=== PATIENT | female | born 1955 | race African-American/Black ===

== ENCOUNTER → 2016-12-20 | Outpatient (CLI) | payer OTHER ==
[~2016-12-20] MED LIST: ALPR1TAB2 PO; ASCO-96 PO; ASPI-770 PO; ATEN50TA41 PO; Amlodipine Besylate PO; CALC300T4 PO; CARI350T14 PO; CARV25TA12 PO; CINA30TA PO; CINA60TA PO; CLON0.1T12 PO; CLON0.2T10 PO; CLOP75TA22 PO; CYAN500T2 PO; CYANOCOBALAMIN; CYCL1DRO TP; DAPT500V6 IV; DULO60CA7 PO; ERGO500017 PO; HUM100IN SQ; HYDR-3307 PO; HYDR-3342 PO; HYDR1TAB16 PO; INSU100I11 SC; INSU100V13 SQ; INSU100V8 SQ; LEVA15HF2 INH; LEVO100T5 PO; LEVO88CA2 PO; LISI-170 PO; LOVA40TA2 PO; MECL-76 PO; METO5TAB38 PO; MEXI150C PO; OMEP40CA6 PO; ONDA4TAB13 SL; PRED20TA PO; ROSU10TA PO; TERA10CA3 PO; TERA5CAP3 PO; VERA240T86 PO; ZOLP10TA5 PO; [UNRECOGNIZED DRUG - CODE] PO
== END | disposition home or self-care (01) ==
LOC: WOUND 14:32
PROVIDERS: ATTEND Podiatrist Foot & Ankle Surgery
DX: E11.621 Type 2 diabetes mellitus with foot ulcer (principal); L97.421 Non-pressure chronic ulcer of left heel and midfoot limited to breakdown of skin; E11.21 Type 2 diabetes mellitus with diabetic nephropathy; F41.9 Anxiety disorder, unspecified; K21.9 Gastro-esophageal reflux disease without esophagitis; I13.2 Hypertensive heart and chronic kidney disease with heart failure and with stage 5 chronic kidney disease, or end stage renal disease; N18.6 End stage renal disease; I50.9 Heart failure, unspecified; E03.9 Hypothyroidism, unspecified; E78.2 Mixed hyperlipidemia; E11.41 Type 2 diabetes mellitus with diabetic mononeuropathy; Z99.2 Dependence on renal dialysis; Z79.4 Long term (current) use of insulin
CPT/HCPCS: 15275; Q4106

== ENCOUNTER → 2016-12-27 | Outpatient (CLI) | payer OTHER | END | disposition home or self-care (01) | LOC: WOUND 14:05 | PROVIDERS: ATTEND Podiatrist Foot & Ankle Surgery | DX: E11.621 Type 2 diabetes mellitus with foot ulcer (principal); L97.421 Non-pressure chronic ulcer of left heel and midfoot limited to breakdown of skin; E11.40 Type 2 diabetes mellitus with diabetic neuropathy, unspecified; I10 Essential (primary) hypertension; E78.5 Hyperlipidemia, unspecified; F41.9 Anxiety disorder, unspecified; K21.9 Gastro-esophageal reflux disease without esophagitis; E03.9 Hypothyroidism, unspecified; Z79.4 Long term (current) use of insulin | CPT/HCPCS: 97597 ==

== ENCOUNTER → 2017-01-03 | Outpatient (CLI) | payer OTHER | END | disposition home or self-care (01) | LOC: WOUND 14:26 | PROVIDERS: ATTEND Podiatrist Foot & Ankle Surgery | DX: E11.621 Type 2 diabetes mellitus with foot ulcer (principal); L97.421 Non-pressure chronic ulcer of left heel and midfoot limited to breakdown of skin; F41.9 Anxiety disorder, unspecified; I10 Essential (primary) hypertension; E78.5 Hyperlipidemia, unspecified; K21.9 Gastro-esophageal reflux disease without esophagitis; E03.9 Hypothyroidism, unspecified; E11.40 Type 2 diabetes mellitus with diabetic neuropathy, unspecified; Z79.4 Long term (current) use of insulin | CPT/HCPCS: 97597 ==

== ENCOUNTER → 2017-01-10 | Outpatient (CLI) | payer OTHER | END | disposition home or self-care (01) | LOC: WOUND 10:57 | PROVIDERS: ATTEND Podiatrist Foot & Ankle Surgery | DX: E11.621 Type 2 diabetes mellitus with foot ulcer (principal); L97.421 Non-pressure chronic ulcer of left heel and midfoot limited to breakdown of skin; I10 Essential (primary) hypertension; E11.40 Type 2 diabetes mellitus with diabetic neuropathy, unspecified; E78.5 Hyperlipidemia, unspecified; F41.9 Anxiety disorder, unspecified; K21.9 Gastro-esophageal reflux disease without esophagitis; E03.9 Hypothyroidism, unspecified; Z79.4 Long term (current) use of insulin | CPT/HCPCS: 15275; Q4106 ==

== ENCOUNTER → 2017-01-17 | Outpatient (CLI) | payer OTHER | END | disposition home or self-care (01) | LOC: WOUND 10:00 | PROVIDERS: ATTEND Podiatrist Foot & Ankle Surgery | DX: E11.621 Type 2 diabetes mellitus with foot ulcer (principal); L97.421 Non-pressure chronic ulcer of left heel and midfoot limited to breakdown of skin; I10 Essential (primary) hypertension; E78.5 Hyperlipidemia, unspecified; E11.40 Type 2 diabetes mellitus with diabetic neuropathy, unspecified; F41.9 Anxiety disorder, unspecified; K21.9 Gastro-esophageal reflux disease without esophagitis; E03.9 Hypothyroidism, unspecified; Z79.4 Long term (current) use of insulin | CPT/HCPCS: 15275; Q4106 ==

== ENCOUNTER → 2017-01-24 | Outpatient (CLI) | payer OTHER | END | disposition home or self-care (01) | LOC: WOUND 10:30 | PROVIDERS: ATTEND Podiatrist Foot & Ankle Surgery | DX: E11.621 Type 2 diabetes mellitus with foot ulcer (principal); L97.421 Non-pressure chronic ulcer of left heel and midfoot limited to breakdown of skin; E11.40 Type 2 diabetes mellitus with diabetic neuropathy, unspecified; I10 Essential (primary) hypertension; E78.5 Hyperlipidemia, unspecified; F41.9 Anxiety disorder, unspecified; K21.9 Gastro-esophageal reflux disease without esophagitis; E03.9 Hypothyroidism, unspecified; Z79.4 Long term (current) use of insulin | CPT/HCPCS: 97597 ==

== ENCOUNTER → 2017-01-31 | Outpatient (CLI) | payer OTHER | END | disposition home or self-care (01) | LOC: WOUND 10:30 | PROVIDERS: ATTEND Podiatrist Foot & Ankle Surgery | DX: E11.621 Type 2 diabetes mellitus with foot ulcer (principal); L97.421 Non-pressure chronic ulcer of left heel and midfoot limited to breakdown of skin; F41.9 Anxiety disorder, unspecified; K21.9 Gastro-esophageal reflux disease without esophagitis; E03.9 Hypothyroidism, unspecified; E11.22 Type 2 diabetes mellitus with diabetic chronic kidney disease; I13.2 Hypertensive heart and chronic kidney disease with heart failure and with stage 5 chronic kidney disease, or end stage renal disease; N18.6 End stage renal disease; I50.9 Heart failure, unspecified; E78.2 Mixed hyperlipidemia; E11.41 Type 2 diabetes mellitus with diabetic mononeuropathy; E11.21 Type 2 diabetes mellitus with diabetic nephropathy; Z99.2 Dependence on renal dialysis; Z79.4 Long term (current) use of insulin | CPT/HCPCS: 97597 ==

== ENCOUNTER 2017-02-03 17:18 | Emergency (ER) | payer OTHER ==
[~2017-02-03] VITALS: Ht 162.6 cm; Wt 87.0 kg
[2017-02-03] MEDS ORDERED: ASPIRIN 81 MG TABLET CHEW ONE (17:30)
[2017-02-03] MEDS ORDERED: DIAZEPAM 5 MG/ML, 2ML IVPush ONE (18:00)
[2017-02-03 18:09] LABS: ASPARTATE AMINO TRANSFERASE 11 U/L (15-37); BLOOD UREA NITROGEN 51 mg/dL (7-18)
[2017-02-03 20:30] VITALS: BP 181/92
== END 2017-02-03 21:18 | disposition home or self-care (01) ==
LOC: ED 20:07
DX: E11.649 Type 2 diabetes mellitus with hypoglycemia without coma (principal); Z79.4 Long term (current) use of insulin; I10 Essential (primary) hypertension
CPT/HCPCS: 36415; 70450; 80053; 82962; 85025; 93005

== ENCOUNTER → 2017-02-07 | Outpatient (CLI) | payer OTHER | END | disposition home or self-care (01) | LOC: WOUND 10:30 | PROVIDERS: ATTEND Podiatrist Foot & Ankle Surgery | DX: E11.621 Type 2 diabetes mellitus with foot ulcer (principal); L97.421 Non-pressure chronic ulcer of left heel and midfoot limited to breakdown of skin; E78.5 Hyperlipidemia, unspecified; Z79.4 Long term (current) use of insulin; E11.40 Type 2 diabetes mellitus with diabetic neuropathy, unspecified; F41.9 Anxiety disorder, unspecified; E11.21 Type 2 diabetes mellitus with diabetic nephropathy; E11.22 Type 2 diabetes mellitus with diabetic chronic kidney disease; I13.2 Hypertensive heart and chronic kidney disease with heart failure and with stage 5 chronic kidney disease, or end stage renal disease; I50.9 Heart failure, unspecified; N18.6 End stage renal disease; Z99.2 Dependence on renal dialysis; K21.9 Gastro-esophageal reflux disease without esophagitis; E03.9 Hypothyroidism, unspecified | CPT/HCPCS: 97597 ==

== ENCOUNTER → 2017-02-21 | Outpatient (CLI) | payer OTHER | END | disposition home or self-care (01) | LOC: WOUND 10:58 | PROVIDERS: ATTEND Podiatrist Foot & Ankle Surgery | DX: E11.621 Type 2 diabetes mellitus with foot ulcer (principal); L97.421 Non-pressure chronic ulcer of left heel and midfoot limited to breakdown of skin; E11.40 Type 2 diabetes mellitus with diabetic neuropathy, unspecified; E78.5 Hyperlipidemia, unspecified; Z79.4 Long term (current) use of insulin; F41.9 Anxiety disorder, unspecified; G47.00 Insomnia, unspecified; K21.9 Gastro-esophageal reflux disease without esophagitis; E03.9 Hypothyroidism, unspecified; E11.22 Type 2 diabetes mellitus with diabetic chronic kidney disease; I13.2 Hypertensive heart and chronic kidney disease with heart failure and with stage 5 chronic kidney disease, or end stage renal disease; I50.9 Heart failure, unspecified; N18.6 End stage renal disease; Z99.2 Dependence on renal dialysis | CPT/HCPCS: 97597 ==

== ENCOUNTER → 2017-02-28 | Outpatient (CLI) | payer OTHER | END | disposition home or self-care (01) | LOC: WOUND 11:03 | PROVIDERS: ATTEND Podiatrist Foot & Ankle Surgery | DX: E11.621 Type 2 diabetes mellitus with foot ulcer (principal); L97.421 Non-pressure chronic ulcer of left heel and midfoot limited to breakdown of skin; E11.40 Type 2 diabetes mellitus with diabetic neuropathy, unspecified; I10 Essential (primary) hypertension; E78.5 Hyperlipidemia, unspecified; F41.9 Anxiety disorder, unspecified; G47.00 Insomnia, unspecified; K21.9 Gastro-esophageal reflux disease without esophagitis; E03.9 Hypothyroidism, unspecified; E11.22 Type 2 diabetes mellitus with diabetic chronic kidney disease; I13.2 Hypertensive heart and chronic kidney disease with heart failure and with stage 5 chronic kidney disease, or end stage renal disease; I50.9 Heart failure, unspecified; N18.6 End stage renal disease; Z99.2 Dependence on renal dialysis; Z79.4 Long term (current) use of insulin | CPT/HCPCS: 97597; 99213 ==

== ENCOUNTER 2017-04-26 14:38 | Inpatient (IN) | payer OTHER ==
[~2017-04-26] VITALS: Ht 162.6 cm; Wt 91.3 kg
[~2017-04-26 14:38] MED LIST changes: -CINA30TA PO; +CINA30TA2 PO; -CLOP75TA22 PO; +CLOP75TA52 PO; -LEVA15HF2 INH; +LEVA15HF4 INH
[2017-04-26] MEDS ORDERED: HYDROcodone/APAP 5/325 TABLET PO ONE (17:30)
[2017-04-26 17:35] LABS: HEMATOCRIT 31.7 % (34.6-47.8); HEMOGLOBIN 10.4 g/dL (11.7-16.4); WHITE BLOOD COUNT 11.4 x10^3/uL (3.4-10)
[2017-04-26 17:42] LABS: BLOOD UREA NITROGEN 16 mg/dL (7-18)
[2017-04-26] MEDS ORDERED: HYDROcodone/APAP 5/325 TABLET ONE (17:51)
[2017-04-26] MEDS ORDERED: VANCOMYCIN 1,800 MG in SODIUM CHLORIDE 0.9% 250 ML IV ONE ×2 (19:30→22:00)
[2017-04-26] MEDS ORDERED: PHARMACOKINETIC CONSULTATION MC ONE ×2 (19:30→21:00)
[2017-04-26] MEDS ORDERED: VANCOMYCIN PER PHARMACY IV ONE (19:30)
[2017-04-26] MEDS ORDERED: CEFTRIAXONE PMX 2GM/50ML 50 ML ONE (19:43)
[2017-04-26] MEDS: CEFTRIAXONE PMX 2GM/50ML 50 ML IV ONE ×2 (19:46→20:34)
[2017-04-26] MEDS ORDERED: ALPRazolam 1MG TABLET PO PRN (20:30)
[2017-04-26] MEDS ORDERED: CARISOPRODOL 350 MG TABLET PO PRN (20:30)
[2017-04-26] MEDS ORDERED: INSULIN LISPRO 1 UNIT SC PRN (20:30)
[2017-04-26] MEDS ORDERED: VANCOMYCIN PER PHARMACY MC PRN (20:30)
[2017-04-26] MEDS ORDERED: ZOLPIDEM 10MG TABLET PO PRN (20:30)
[2017-04-26] MEDS ORDERED: POLYETHYLENE GLYCOL 17 GM PACKET PO PRN (21:00)
[2017-04-26] MEDS: TEMPLATE NON-FORMULARY MED. (Rosuvastatin Calcium** (Crestor**) 10 MG) HOMEMEDPO SCH (21:00)
[2017-04-26] MEDS: INSULIN ASPART 100 UNITS/ML, PEN SQ-INSULIN SCH (21:00)
[2017-04-26] MEDS ORDERED: HYDROmorphone 2 MG/ML, 1ML IVPush PRN (21:00)
[2017-04-26] MEDS: DULOXETINE 30 MG CAPSULE.DR PO SCH (21:00)
[2017-04-26] MEDS: TEMPLATE NON-FORMULARY MED. (Cyclosporine (Restasis) 1 DROP) TP SCH (21:00)
[2017-04-26] MEDS ORDERED: PHARMACOKINETIC MONITORING MC PRN (21:00)
[2017-04-26] MEDS ORDERED: PHARMACY MAY ADJ FOR RENAL FX MC PRN (21:00)
[2017-04-26] MEDS ORDERED: ATENOLOL 50 MG TABLET PO SCH (21:00)
[2017-04-26] MEDS: INSULIN DETEMIR 100 UNITS/ML, PEN SQ-INSULIN SCH (21:00)
[2017-04-26] MEDS ORDERED: INSULIN ASPART 100 UNITS/ML, 3ML PEN LOW DOSE SS SQ-INSULIN SCH (21:00)
[2017-04-26 21:08] VITALS: BP 142/60
[2017-04-26] MEDS: CALCIUM CARBONATE 500 MG TAB.CHEW PO SCH (22:32)
[2017-04-26] MEDS: MEXILETINE 150 MG CAPSULE PO SCH (22:34)
[2017-04-26] MEDS: TERAZOSIN 5MG CAPSULE PO SCH (22:34)
[2017-04-26] MEDS: ERGOCALCIFEROL 50,000 UNIT CAPSULE PO SCH ×2 (22:35→22:54)
[2017-04-26] MEDS: CLOPIDOGREL 75 MG TABLET PO SCH (22:35)
[2017-04-26] MEDS: HEPARIN 5,000 UNITS/ML, 1ML SQ SCH (22:39)
[2017-04-27 00:29] VITALS: BP 117/66
[2017-04-27] MEDS: HEPARIN 5,000 UNITS/ML, 1ML SQ SCH ×3 (05:14→23:16)
[2017-04-27 05:24] LABS: HEMATOCRIT 28.6 % (34.6-47.8); HEMOGLOBIN 9.4 g/dL (11.7-16.4); WHITE BLOOD COUNT 11.6 x10^3/uL (3.4-10)
[2017-04-27 05:32] LABS: BLOOD UREA NITROGEN 25 mg/dL (7-18)
[2017-04-27 05:59] VITALS: BP 113/66
[2017-04-27] MEDS: MEXILETINE 150 MG CAPSULE PO SCH ×2 (08:39→23:14)
[2017-04-27] MEDS: ASCORBIC ACID 500 MG TABLET PO SCH (08:40)
[2017-04-27] MEDS: DULOXETINE 30 MG CAPSULE.DR PO SCH ×2 (08:40→23:15)
[2017-04-27] MEDS: CINACALCET 30 MG TABLET PO SCH (08:40)
[2017-04-27] MEDS: CALCIUM CARBONATE 500 MG TAB.CHEW PO SCH ×3 (08:41→16:44)
[2017-04-27] MEDS: INSULIN ASPART 100 UNITS/ML, PEN SQ-INSULIN SCH ×4 (08:42→20:49)
[2017-04-27] MEDS: INSULIN DETEMIR 100 UNITS/ML, PEN SQ-INSULIN SCH ×2 (08:42→23:14)
[2017-04-27] MEDS: CYANOCOBALAMIN 1,000 MCG TABLET PO SCH (08:53)
[2017-04-27] MEDS: TEMPLATE NON-FORMULARY MED. (Cyclosporine (Restasis) 1 DROP) TP SCH ×2 (08:53→23:16)
[2017-04-27] MEDS: LEVOTHYROXINE 100 MCG TABLET PO SCH (08:53)
[2017-04-27] MEDS ORDERED: PHARMACY MAY ADJ FOR RENAL FX MC PRN (11:00)
[2017-04-27] MEDS: AMPICILLIN/SULBACTAM 3 GM in SODIUM CHLORIDE 0.9% 100 ML IV SCH ×3 (11:00→23:13)
[2017-04-27] MEDS: HYDROcodone/APAP 10/325 MG TABLET PO PRN ×2 (11:03→23:14)
[2017-04-27 14:29] VITALS: BP 111/70
[2017-04-27 18:33] VITALS: BP 100/58
[2017-04-27] MEDS ORDERED: CEFTRIAXONE PMX 2GM/50ML 50 ML IV SCH (20:00)
[2017-04-27 20:05] VITALS: BP 125/74
[2017-04-27] MEDS: TEMPLATE NON-FORMULARY MED. (Rosuvastatin Calcium** (Crestor**) 10 MG) HOMEMEDPO SCH (23:14)
[2017-04-27] MEDS: ATENOLOL 25 MG TABLET PO SCH (23:14)
[2017-04-27] MEDS: TERAZOSIN 5MG CAPSULE PO SCH (23:15)
[2017-04-27] MEDS: CLOPIDOGREL 75 MG TABLET PO SCH (23:15)
[2017-04-28 02:00] VITALS: BP 89/46
[2017-04-28] MEDS: AMPICILLIN/SULBACTAM 3 GM in SODIUM CHLORIDE 0.9% 100 ML IV SCH ×4 (05:36→22:49)
[2017-04-28 05:49] LABS: HEMATOCRIT 28.4 % (34.6-47.8); HEMOGLOBIN 9.3 g/dL (11.7-16.4); WHITE BLOOD COUNT 13.4 x10^3/uL (3.4-10)
[2017-04-28 05:54] LABS: ASPARTATE AMINO TRANSFERASE 28 U/L (15-37); BLOOD UREA NITROGEN 32 mg/dL (7-18)
[2017-04-28 06:12] LABS: C-REACTIVE PROTEIN, QUANT > 19.00 mg/dL (0.02-0.49)
[2017-04-28] MEDS ORDERED: DEXTROSE 50%, 50ML SYRINGE ONE (06:28)
[2017-04-28] MEDS ORDERED: DEXTROSE 50%, 50ML SYRINGE IVPush PRN (07:00)
[2017-04-28] MEDS: INSULIN ASPART 100 UNITS/ML, PEN SQ-INSULIN SCH ×4 (07:00→20:32)
[2017-04-28] MEDS ORDERED: GLUCAGON 1 MG IM PRN (07:00)
[2017-04-28] MEDS ORDERED: DEXTROSE 4 GM TAB.CHEW PO PRN (07:00)
[2017-04-28 07:13] VITALS: BP 95/54
[2017-04-28] MEDS: CYANOCOBALAMIN 1,000 MCG TABLET PO SCH (09:00)
[2017-04-28] MEDS: TEMPLATE NON-FORMULARY MED. (Cyclosporine (Restasis) 1 DROP) TP SCH ×2 (09:00→20:33)
[2017-04-28] MEDS: INSULIN DETEMIR 100 UNITS/ML, PEN SQ-INSULIN SCH ×3 (09:00→20:32)
[2017-04-28] MEDS: DULOXETINE 30 MG CAPSULE.DR PO SCH ×2 (09:00→20:31)
[2017-04-28] MEDS: CINACALCET 30 MG TABLET PO SCH (10:36)
[2017-04-28] MEDS: HEPARIN 5,000 UNITS/ML, 1ML SQ SCH ×2 (10:36→20:24)
[2017-04-28] MEDS: ASCORBIC ACID 500 MG TABLET PO SCH (10:36)
[2017-04-28] MEDS: MEXILETINE 150 MG CAPSULE PO SCH ×2 (10:36→20:32)
[2017-04-28] MEDS: LEVOTHYROXINE 100 MCG TABLET PO SCH (10:37)
[2017-04-28] MEDS: CALCIUM CARBONATE 500 MG TAB.CHEW PO SCH ×3 (10:37→17:31)
[2017-04-28] MEDS: SODIUM CHLORIDE FLUSH 10ML SYR IVF SCH ×2 (10:38→20:30)
[2017-04-28 12:17] VITALS: BP 109/59
[2017-04-28] MEDS: HYDROcodone/APAP 10/325 MG TABLET PO PRN ×2 (13:21→20:33)
[2017-04-28 20:25] VITALS: BP 145/69
[2017-04-28] MEDS: TEMPLATE NON-FORMULARY MED. (Rosuvastatin Calcium** (Crestor**) 10 MG) HOMEMEDPO SCH (20:30)
[2017-04-28] MEDS: TERAZOSIN 5MG CAPSULE PO SCH (20:31)
[2017-04-28] MEDS: CLOPIDOGREL 75 MG TABLET PO SCH (20:31)
[2017-04-28] MEDS: ATENOLOL 25 MG TABLET PO SCH (20:32)
[2017-04-29 03:36] VITALS: BP 102/64
[2017-04-29] MEDS: HEPARIN 5,000 UNITS/ML, 1ML SQ SCH ×3 (03:38→19:30)
[2017-04-29] MEDS: AMPICILLIN/SULBACTAM 3 GM in SODIUM CHLORIDE 0.9% 100 ML IV SCH ×3 (05:15→20:18)
[2017-04-29 05:53] LABS: HEMATOCRIT 26.3 % (34.6-47.8); HEMOGLOBIN 8.5 g/dL (11.7-16.4); WHITE BLOOD COUNT 13.2 x10^3/uL (3.4-10)
[2017-04-29 06:05] LABS: BLOOD UREA NITROGEN 39 mg/dL (7-18)
[2017-04-29 06:36] VITALS: BP 100/58
[2017-04-29] MEDS: TEMPLATE NON-FORMULARY MED. (Cyclosporine (Restasis) 1 DROP) TP SCH ×2 (09:00→21:00)
[2017-04-29] MEDS: DULOXETINE 30 MG CAPSULE.DR PO SCH ×2 (09:00→22:32)
[2017-04-29] MEDS: CINACALCET 30 MG TABLET PO SCH (09:00)
[2017-04-29] MEDS: ASCORBIC ACID 500 MG TABLET PO SCH (09:00)
[2017-04-29] MEDS: INSULIN ASPART 100 UNITS/ML, PEN SQ-INSULIN SCH ×4 (09:08→21:00)
[2017-04-29] MEDS: CYANOCOBALAMIN 1,000 MCG TABLET PO SCH (09:09)
[2017-04-29] MEDS: INSULIN DETEMIR 100 UNITS/ML, PEN SQ-INSULIN SCH ×2 (09:09→21:00)
[2017-04-29] MEDS: LEVOTHYROXINE 100 MCG TABLET PO SCH (09:10)
[2017-04-29] MEDS: MEXILETINE 150 MG CAPSULE PO SCH ×2 (09:10→22:30)
[2017-04-29] MEDS: CALCIUM CARBONATE 500 MG TAB.CHEW PO SCH ×3 (09:11→17:00)
[2017-04-29] MEDS: SODIUM CHLORIDE FLUSH 10ML SYR IVF SCH ×2 (09:11→22:32)
[2017-04-29 09:59] VITALS: BP 140/74
[2017-04-29] MEDS: DARBEPOETIN 60 MCG/ML SQ SCH (12:09)
[2017-04-29 12:47] VITALS: BP 131/70
[2017-04-29] MEDS: OMEPRAZOLE 20 MG CAPSULE.DR PO SCH (14:41)
[2017-04-29] MEDS ORDERED: ONDANSETRON 2MG/ML, 2ML ONE (15:42)
[2017-04-29] MEDS ORDERED: ONDANSETRON 2MG/ML, 2ML IVPush PRN (16:00)
[2017-04-29] MEDS: TEMPLATE NON-FORMULARY MED. (Rosuvastatin Calcium** (Crestor**) 10 MG) HOMEMEDPO SCH (21:00)
[2017-04-29 21:59] VITALS: BP 140/74
[2017-04-29] MEDS: TERAZOSIN 5MG CAPSULE PO SCH (22:30)
[2017-04-29] MEDS: ATENOLOL 25 MG TABLET PO SCH (22:30)
[2017-04-29] MEDS: CLOPIDOGREL 75 MG TABLET PO SCH (22:30)
[2017-04-29] MEDS: HYDROcodone/APAP 10/325 MG TABLET PO PRN (22:42)
[2017-04-30] MEDS: AMPICILLIN/SULBACTAM 3 GM in SODIUM CHLORIDE 0.9% 100 ML IV SCH ×5 (02:52→20:15)
[2017-04-30 02:57] VITALS: BP 101/62
[2017-04-30] MEDS: HEPARIN 5,000 UNITS/ML, 1ML SQ SCH ×3 (03:30→19:30)
[2017-04-30 05:57] LABS: HEMATOCRIT 27.1 % (34.6-47.8); HEMOGLOBIN 8.8 g/dL (11.7-16.4); WHITE BLOOD COUNT 11.8 x10^3/uL (3.4-10)
[2017-04-30 06:09] LABS: BLOOD UREA NITROGEN 16 mg/dL (7-18)
[2017-04-30 06:26] LABS: ASPARTATE AMINO TRANSFERASE 69 U/L (15-37); FERRITIN 3868.4 ng/mL (8-252); TOTAL IRON BINDING CAPACITY 105 mcg/dL (250-450)
[2017-04-30] MEDS: INSULIN ASPART 100 UNITS/ML, PEN SQ-INSULIN SCH ×4 (07:00→22:20)
[2017-04-30] MEDS: OMEPRAZOLE 20 MG CAPSULE.DR PO SCH (07:30)
[2017-04-30] MEDS: CALCIUM CARBONATE 500 MG TAB.CHEW PO SCH ×3 (08:00→17:00)
[2017-04-30 08:13] VITALS: BP 114/64
[2017-04-30] MEDS: SODIUM CHLORIDE FLUSH 10ML SYR IVF SCH ×2 (08:21→22:18)
[2017-04-30] MEDS: CINACALCET 30 MG TABLET PO SCH (08:21)
[2017-04-30] MEDS: DULOXETINE 30 MG CAPSULE.DR PO SCH ×2 (08:22→22:07)
[2017-04-30] MEDS: LEVOTHYROXINE 100 MCG TABLET PO SCH (08:22)
[2017-04-30] MEDS: CYANOCOBALAMIN 1,000 MCG TABLET PO SCH (08:22)
[2017-04-30] MEDS: MEXILETINE 150 MG CAPSULE PO SCH ×2 (08:22→22:07)
[2017-04-30] MEDS: ASCORBIC ACID 500 MG TABLET PO SCH (08:23)
[2017-04-30] MEDS: INSULIN DETEMIR 100 UNITS/ML, PEN SQ-INSULIN SCH ×2 (08:23→22:19)
[2017-04-30] MEDS: TEMPLATE NON-FORMULARY MED. (Cyclosporine (Restasis) 1 DROP) TP SCH ×2 (08:23→22:17)
[2017-04-30 10:58] LABS: HEP B SURF. AB 6.8 mIU/mL (0.0-10.0)
[2017-04-30 14:15] VITALS: BP 145/83
[2017-04-30] MEDS ORDERED: PROPOFOL 10 MG/ML, 20ML ONE (14:50)
[2017-04-30] MEDS ORDERED: MIDAZOLAM 1 MG/ML, 2ML ONE (19:43)
[2017-04-30] MEDS ORDERED: FENTANYL PF 250 MCG/5ML ONE (19:43)
[2017-04-30] MEDS ORDERED: LABETALOL 5MG/ML, 20ML IV PRN (21:00)
[2017-04-30] MEDS ORDERED: ONDANSETRON 2MG/ML, 2ML IVPush PRN (21:00)
[2017-04-30] MEDS ORDERED: hydrALAzine 20 MG/ML, 1ML IV PRN (21:00)
[2017-04-30] MEDS ORDERED: EPHEDRINE 50 MG/ML, 1ML IVPush PRN (21:00)
[2017-04-30] MEDS ORDERED: PROMETHAZINE 25 MG/ML, 1ML IV PRN (21:00)
[2017-04-30 21:45] VITALS: BP 158/86
[2017-04-30] MEDS: ATENOLOL 25 MG TABLET PO SCH (22:07)
[2017-04-30] MEDS: CLOPIDOGREL 75 MG TABLET PO SCH (22:07)
[2017-04-30] MEDS: TERAZOSIN 5MG CAPSULE PO SCH (22:07)
[2017-04-30] MEDS: TEMPLATE NON-FORMULARY MED. (Rosuvastatin Calcium** (Crestor**) 10 MG) HOMEMEDPO SCH (22:09)
[2017-05-01] MEDS: AMPICILLIN/SULBACTAM 3 GM in SODIUM CHLORIDE 0.9% 100 ML IV SCH (02:19)
[2017-05-01] MEDS: HYDROcodone/APAP 10/325 MG TABLET PO PRN ×3 (02:19→21:30)
[2017-05-01 02:20] VITALS: BP 112/69
[2017-05-01 03:23] LABS: HEMATOCRIT 26.3 % (34.6-47.8); HEMOGLOBIN 8.6 g/dL (11.7-16.4); WHITE BLOOD COUNT 14.2 x10^3/uL (3.4-10)
[2017-05-01] MEDS: HEPARIN 5,000 UNITS/ML, 1ML SQ SCH ×3 (03:29→21:26)
[2017-05-01 03:34] LABS: BLOOD UREA NITROGEN 23 mg/dL (7-18)
[2017-05-01] MEDS: INSULIN ASPART 100 UNITS/ML, PEN SQ-INSULIN SCH ×4 (07:00→21:30)
[2017-05-01 08:03] VITALS: BP 105/70
[2017-05-01] MEDS: ASCORBIC ACID 500 MG TABLET PO SCH (08:34)
[2017-05-01] MEDS: CALCIUM CARBONATE 500 MG TAB.CHEW PO SCH ×3 (08:35→16:49)
[2017-05-01] MEDS: MEXILETINE 150 MG CAPSULE PO SCH ×2 (08:35→21:28)
[2017-05-01] MEDS: LEVOTHYROXINE 100 MCG TABLET PO SCH (08:35)
[2017-05-01] MEDS: CYANOCOBALAMIN 1,000 MCG TABLET PO SCH (08:35)
[2017-05-01] MEDS: CINACALCET 30 MG TABLET PO SCH (08:35)
[2017-05-01] MEDS: DULOXETINE 30 MG CAPSULE.DR PO SCH ×2 (08:35→21:28)
[2017-05-01] MEDS: OMEPRAZOLE 20 MG CAPSULE.DR PO SCH (08:36)
[2017-05-01] MEDS: INSULIN DETEMIR 100 UNITS/ML, PEN SQ-INSULIN SCH ×2 (08:36→21:29)
[2017-05-01] MEDS ORDERED: PIPERACILLIN/TAZO 2.25 GM in SODIUM CHLORIDE 0.9% 50 ML IV SCH (09:00)
[2017-05-01] MEDS: TEMPLATE NON-FORMULARY MED. (Cyclosporine (Restasis) 1 DROP) TP SCH ×2 (09:00→21:00)
[2017-05-01] MEDS: SODIUM CHLORIDE FLUSH 10ML SYR IVF SCH ×2 (09:00→21:00)
[2017-05-01] MEDS ORDERED: PHARMACY MAY ADJ FOR RENAL FX MC PRN (09:00)
[2017-05-01 13:43] VITALS: BP 121/78
[2017-05-01 20:00] VITALS: BP 131/77
[2017-05-01] MEDS: TEMPLATE NON-FORMULARY MED. (Rosuvastatin Calcium** (Crestor**) 10 MG) HOMEMEDPO SCH (21:00)
[2017-05-01] MEDS: ATENOLOL 25 MG TABLET PO SCH (21:26)
[2017-05-01] MEDS: TERAZOSIN 5MG CAPSULE PO SCH (21:27)
[2017-05-01] MEDS: CLOPIDOGREL 75 MG TABLET PO SCH (21:27)
[2017-05-01] MEDS: PIPERACILLIN/TAZO/PMX 2.25GM 50 ML IV SCH (21:30)
[2017-05-02 02:00] VITALS: BP 111/68
[2017-05-02] MEDS: HEPARIN 5,000 UNITS/ML, 1ML SQ SCH ×3 (05:22→21:45)
[2017-05-02] MEDS: PIPERACILLIN/TAZO/PMX 2.25GM 50 ML IV SCH ×3 (05:22→21:40)
[2017-05-02 06:28] LABS: HEMATOCRIT 26.7 % (34.6-47.8); HEMOGLOBIN 8.6 g/dL (11.7-16.4); WHITE BLOOD COUNT 15.3 x10^3/uL (3.4-10)
[2017-05-02 06:35] LABS: BLOOD UREA NITROGEN 16 mg/dL (7-18)
[2017-05-02] MEDS: INSULIN ASPART 100 UNITS/ML, PEN SQ-INSULIN SCH ×4 (07:00→21:42)
[2017-05-02 07:46] VITALS: BP 121/53
[2017-05-02] MEDS: CINACALCET 30 MG TABLET PO SCH (08:00)
[2017-05-02] MEDS: ASCORBIC ACID 500 MG TABLET PO SCH (08:00)
[2017-05-02] MEDS: LEVOTHYROXINE 100 MCG TABLET PO SCH (08:00)
[2017-05-02] MEDS: CYANOCOBALAMIN 1,000 MCG TABLET PO SCH (08:00)
[2017-05-02] MEDS: OMEPRAZOLE 20 MG CAPSULE.DR PO SCH (08:01)
[2017-05-02] MEDS: MEXILETINE 150 MG CAPSULE PO SCH ×2 (08:01→21:39)
[2017-05-02] MEDS: DULOXETINE 30 MG CAPSULE.DR PO SCH ×2 (08:01→21:39)
[2017-05-02] MEDS: CALCIUM CARBONATE 500 MG TAB.CHEW PO SCH ×3 (08:01→17:15)
[2017-05-02] MEDS: SODIUM CHLORIDE FLUSH 10ML SYR IVF SCH ×2 (08:04→21:00)
[2017-05-02] MEDS: TEMPLATE NON-FORMULARY MED. (Cyclosporine (Restasis) 1 DROP) TP SCH ×2 (08:05→21:00)
[2017-05-02] MEDS: INSULIN DETEMIR 100 UNITS/ML, PEN SQ-INSULIN SCH ×2 (09:00→21:41)
[2017-05-02] MEDS: HYDROcodone/APAP 10/325 MG TABLET PO PRN ×2 (10:16→21:40)
[2017-05-02 14:17] VITALS: BP 107/68
[2017-05-02] MEDS: TEMPLATE NON-FORMULARY MED. (Rosuvastatin Calcium** (Crestor**) 10 MG) HOMEMEDPO SCH (21:00)
[2017-05-02 21:36] VITALS: BP 161/79
[2017-05-02] MEDS: TERAZOSIN 5MG CAPSULE PO SCH (21:39)
[2017-05-02] MEDS: ATENOLOL 25 MG TABLET PO SCH (21:39)
[2017-05-02] MEDS: CLOPIDOGREL 75 MG TABLET PO SCH (21:39)
[2017-05-03 01:46] VITALS: BP 112/54
[2017-05-03 05:57] LABS: HEMATOCRIT 24.5 % (34.6-47.8); HEMOGLOBIN 8.1 g/dL (11.7-16.4); WHITE BLOOD COUNT 16.7 x10^3/uL (3.4-10)
[2017-05-03] MEDS: LEVOTHYROXINE 100 MCG TABLET PO SCH (06:11)
[2017-05-03] MEDS: HEPARIN 5,000 UNITS/ML, 1ML SQ SCH ×3 (06:12→20:56)
[2017-05-03 06:17] LABS: BLOOD UREA NITROGEN 31 mg/dL (7-18)
[2017-05-03] MEDS: PIPERACILLIN/TAZO/PMX 2.25GM 50 ML IV SCH ×3 (06:33→20:57)
[2017-05-03 06:58] VITALS: BP 117/71
[2017-05-03] MEDS: INSULIN ASPART 100 UNITS/ML, PEN SQ-INSULIN SCH ×4 (07:00→20:58)
[2017-05-03] MEDS: TEMPLATE NON-FORMULARY MED. (Cyclosporine (Restasis) 1 DROP) TP SCH ×2 (09:00→20:57)
[2017-05-03] MEDS: SODIUM CHLORIDE FLUSH 10ML SYR IVF SCH ×2 (09:00→20:57)
[2017-05-03] MEDS: INSULIN DETEMIR 100 UNITS/ML, PEN SQ-INSULIN SCH ×2 (09:00→22:25)
[2017-05-03] MEDS: CALCIUM CARBONATE 500 MG TAB.CHEW PO SCH ×3 (12:00→16:52)
[2017-05-03] MEDS: CINACALCET 30 MG TABLET PO SCH (12:21)
[2017-05-03] MEDS: CYANOCOBALAMIN 1,000 MCG TABLET PO SCH (12:21)
[2017-05-03] MEDS: ASCORBIC ACID 500 MG TABLET PO SCH (12:21)
[2017-05-03] MEDS: DULOXETINE 30 MG CAPSULE.DR PO SCH ×2 (12:22→20:57)
[2017-05-03] MEDS: MEXILETINE 150 MG CAPSULE PO SCH ×2 (12:22→20:56)
[2017-05-03] MEDS: OMEPRAZOLE 20 MG CAPSULE.DR PO SCH (12:22)
[2017-05-03 15:06] VITALS: BP 127/60
[2017-05-03 19:34] VITALS: BP 135/74
[2017-05-03] MEDS: HYDROcodone/APAP 10/325 MG TABLET PO PRN (20:54)
[2017-05-03] MEDS: ERGOCALCIFEROL 50,000 UNIT CAPSULE PO SCH (20:55)
[2017-05-03] MEDS: CLOPIDOGREL 75 MG TABLET PO SCH (20:55)
[2017-05-03] MEDS: TERAZOSIN 5MG CAPSULE PO SCH (20:55)
[2017-05-03] MEDS: ATENOLOL 25 MG TABLET PO SCH (20:56)
[2017-05-03] MEDS: TEMPLATE NON-FORMULARY MED. (Rosuvastatin Calcium** (Crestor**) 10 MG) HOMEMEDPO SCH (20:57)
[2017-05-04 02:02] VITALS: BP 139/74
[2017-05-04 04:15] LABS: HEMATOCRIT 25.7 % (34.6-47.8); HEMOGLOBIN 8.2 g/dL (11.7-16.4); WHITE BLOOD COUNT 19.9 x10^3/uL (3.4-10)
[2017-05-04 04:23] LABS: BLOOD UREA NITROGEN 25 mg/dL (7-18)
[2017-05-04] MEDS: PIPERACILLIN/TAZO/PMX 2.25GM 50 ML IV SCH ×3 (05:40→22:03)
[2017-05-04] MEDS: LEVOTHYROXINE 100 MCG TABLET PO SCH (05:40)
[2017-05-04] MEDS: HEPARIN 5,000 UNITS/ML, 1ML SQ SCH ×3 (05:41→22:03)
[2017-05-04] MEDS: INSULIN ASPART 100 UNITS/ML, PEN SQ-INSULIN SCH ×4 (07:00→22:02)
[2017-05-04 07:29] VITALS: BP 122/65
[2017-05-04] MEDS: OMEPRAZOLE 20 MG CAPSULE.DR PO SCH (07:45)
[2017-05-04] MEDS: CYANOCOBALAMIN 1,000 MCG TABLET PO SCH (07:45)
[2017-05-04] MEDS: CALCIUM CARBONATE 500 MG TAB.CHEW PO SCH ×3 (07:45→16:16)
[2017-05-04] MEDS: MEXILETINE 150 MG CAPSULE PO SCH ×2 (07:46→22:03)
[2017-05-04] MEDS: CINACALCET 30 MG TABLET PO SCH (07:46)
[2017-05-04] MEDS: DULOXETINE 30 MG CAPSULE.DR PO SCH ×2 (07:46→22:04)
[2017-05-04] MEDS: TEMPLATE NON-FORMULARY MED. (Cyclosporine (Restasis) 1 DROP) TP SCH ×2 (07:47→21:00)
[2017-05-04] MEDS: ASCORBIC ACID 500 MG TABLET PO SCH (07:47)
[2017-05-04] MEDS: SODIUM CHLORIDE FLUSH 10ML SYR IVF SCH ×2 (07:47→22:04)
[2017-05-04] MEDS: INSULIN DETEMIR 100 UNITS/ML, PEN SQ-INSULIN SCH ×2 (09:16→22:02)
[2017-05-04] MEDS: HYDROcodone/APAP 10/325 MG TABLET PO PRN ×2 (12:49→22:01)
[2017-05-04 12:53] VITALS: BP 176/77
[2017-05-04 19:16] VITALS: BP 106/65
[2017-05-04 20:23] VITALS: BP 127/75
[2017-05-04] MEDS: TEMPLATE NON-FORMULARY MED. (Rosuvastatin Calcium** (Crestor**) 10 MG) HOMEMEDPO SCH (21:00)
[2017-05-04 21:51] VITALS: BP 127/64
[2017-05-04] MEDS: TERAZOSIN 5MG CAPSULE PO SCH (22:03)
[2017-05-04] MEDS: CLOPIDOGREL 75 MG TABLET PO SCH (22:03)
[2017-05-04] MEDS: ATENOLOL 25 MG TABLET PO SCH (22:03)
[2017-05-05 01:31] VITALS: BP 135/68
[2017-05-05 05:24] LABS: HEMATOCRIT 24.5 % (34.6-47.8); WHITE BLOOD COUNT 19.9 x10^3/uL (3.4-10)
[2017-05-05 05:40] LABS: BLOOD UREA NITROGEN 47 mg/dL (7-18)
[2017-05-05] MEDS: PIPERACILLIN/TAZO/PMX 2.25GM 50 ML IV SCH ×3 (06:23→23:23)
[2017-05-05] MEDS: HEPARIN 5,000 UNITS/ML, 1ML SQ SCH ×3 (06:23→23:00)
[2017-05-05] MEDS: LEVOTHYROXINE 100 MCG TABLET PO SCH (06:23)
[2017-05-05 06:44] VITALS: BP 157/75
[2017-05-05 06:46] LABS: DIFF TOTAL CELLS COUNTED 100 CELL DIFF
[2017-05-05 06:48] LABS: ANISOCYTOSIS 1+; HYPOCHROMIA 1+; VERIFY COUNTS? YES
[2017-05-05 06:49] LABS: POLYCHROMASIA 1+
[2017-05-05] MEDS: INSULIN ASPART 100 UNITS/ML, PEN SQ-INSULIN SCH ×4 (07:00→20:12)
[2017-05-05] MEDS ORDERED: PROPOFOL 10 MG/ML, 20ML ONE (07:42)
[2017-05-05] MEDS: CINACALCET 30 MG TABLET PO SCH (08:22)
[2017-05-05] MEDS: MEXILETINE 150 MG CAPSULE PO SCH ×2 (08:22→20:11)
[2017-05-05] MEDS: OMEPRAZOLE 20 MG CAPSULE.DR PO SCH (08:22)
[2017-05-05] MEDS: INSULIN DETEMIR 100 UNITS/ML, PEN SQ-INSULIN SCH ×2 (08:22→20:11)
[2017-05-05] MEDS: DULOXETINE 30 MG CAPSULE.DR PO SCH ×2 (08:22→20:11)
[2017-05-05] MEDS: CALCIUM CARBONATE 500 MG TAB.CHEW PO SCH ×3 (08:23→17:04)
[2017-05-05] MEDS: CYANOCOBALAMIN 1,000 MCG TABLET PO SCH (08:23)
[2017-05-05] MEDS: SODIUM CHLORIDE FLUSH 10ML SYR IVF SCH ×2 (08:24→20:12)
[2017-05-05] MEDS: ASCORBIC ACID 500 MG TABLET PO SCH (08:31)
[2017-05-05] MEDS: TEMPLATE NON-FORMULARY MED. (Cyclosporine (Restasis) 1 DROP) TP SCH ×2 (08:31→20:13)
[2017-05-05] MEDS ORDERED: MIDAZOLAM 1 MG/ML, 2ML ONE (11:19)
[2017-05-05] MEDS ORDERED: FENTANYL PF 250 MCG/5ML ONE (11:20)
[2017-05-05] MEDS ORDERED: OXYcodone 5 MG/5 ML ORAL.SOL UDC PO PRN (13:00)
[2017-05-05] MEDS ORDERED: FENTANYL PF 100 MCG/2ML IV PRN (13:00)
[2017-05-05] MEDS ORDERED: OXYcodone 5 MG/5 ML ORAL.SOL UDC ONE (13:04)
[2017-05-05 14:00] VITALS: BP 142/65
[2017-05-05] MEDS: HYDROcodone/APAP 10/325 MG TABLET PO PRN (20:00)
[2017-05-05 20:02] VITALS: BP 134/61
[2017-05-05] MEDS: CLOPIDOGREL 75 MG TABLET PO SCH (20:10)
[2017-05-05] MEDS: ATENOLOL 25 MG TABLET PO SCH (20:10)
[2017-05-05] MEDS: TERAZOSIN 5MG CAPSULE PO SCH (20:11)
[2017-05-05] MEDS: TEMPLATE NON-FORMULARY MED. (Rosuvastatin Calcium** (Crestor**) 10 MG) HOMEMEDPO SCH (20:12)
[2017-05-05 20:35] VITALS: BP 158/53
[2017-05-06] VITALS (8 sets, daily range): BP systolic 127–177; BP diastolic 64–80
[2017-05-06 04:27] LABS: HEMATOCRIT 23.5 % (34.6-47.8); HEMOGLOBIN 7.5 g/dL (11.7-16.4); WHITE BLOOD COUNT 17.5 x10^3/uL (3.4-10)
[2017-05-06] MEDS: LEVOTHYROXINE 100 MCG TABLET PO SCH (05:16)
[2017-05-06 05:34] LABS: DIFF TOTAL CELLS COUNTED 100 CELL DIFF
[2017-05-06 05:36] LABS: VERIFY COUNTS? YES
[2017-05-06 05:37] LABS: ANISOCYTOSIS 1+
[2017-05-06 05:38] LABS: POLYCHROMASIA 1+
[2017-05-06 05:46] LABS: BLOOD UREA NITROGEN 59 mg/dL (7-18)
[2017-05-06] MEDS: HEPARIN 5,000 UNITS/ML, 1ML SQ SCH (07:00)
[2017-05-06] MEDS: INSULIN DETEMIR 100 UNITS/ML, PEN SQ-INSULIN SCH ×2 (08:05→22:32)
[2017-05-06] MEDS: PIPERACILLIN/TAZO/PMX 2.25GM 50 ML IV SCH ×2 (08:06→19:00)
[2017-05-06] MEDS: ASCORBIC ACID 500 MG TABLET PO SCH (08:06)
[2017-05-06] MEDS: OMEPRAZOLE 20 MG CAPSULE.DR PO SCH (08:06)
[2017-05-06] MEDS: INSULIN ASPART 100 UNITS/ML, PEN SQ-INSULIN SCH ×4 (08:06→22:38)
[2017-05-06] MEDS: CINACALCET 30 MG TABLET PO SCH (08:07)
[2017-05-06] MEDS: DULOXETINE 30 MG CAPSULE.DR PO SCH ×2 (08:07→22:34)
[2017-05-06] MEDS: MEXILETINE 150 MG CAPSULE PO SCH ×2 (08:07→22:35)
[2017-05-06] MEDS: CALCIUM CARBONATE 500 MG TAB.CHEW PO SCH ×3 (08:07→17:48)
[2017-05-06] MEDS: CYANOCOBALAMIN 1,000 MCG TABLET PO SCH (08:07)
[2017-05-06] MEDS: TEMPLATE NON-FORMULARY MED. (Cyclosporine (Restasis) 1 DROP) TP SCH ×2 (08:09→21:00)
[2017-05-06] MEDS: SODIUM CHLORIDE FLUSH 10ML SYR IVF SCH ×2 (08:09→22:35)
[2017-05-06] MEDS: DARBEPOETIN 60 MCG/ML SQ SCH (14:16)
[2017-05-06] MEDS: HYDROcodone/APAP 10/325 MG TABLET PO PRN ×2 (14:16→22:10)
[2017-05-06] MEDS: TEMPLATE NON-FORMULARY MED. (Rosuvastatin Calcium** (Crestor**) 10 MG) HOMEMEDPO SCH (21:00)
[2017-05-06] MEDS: CLOPIDOGREL 75 MG TABLET PO SCH (22:34)
[2017-05-06] MEDS: ATENOLOL 25 MG TABLET PO SCH (22:34)
[2017-05-06] MEDS: TERAZOSIN 5MG CAPSULE PO SCH (22:34)
[2017-05-07 00:18] VITALS: BP 151/73
[2017-05-07] MEDS: PIPERACILLIN/TAZO/PMX 2.25GM 50 ML IV SCH ×3 (03:45→18:13)
[2017-05-07 04:48] LABS: HEMATOCRIT 28.1 % (34.6-47.8); HEMOGLOBIN 9.1 g/dL (11.7-16.4)
[2017-05-07] MEDS: LEVOTHYROXINE 100 MCG TABLET PO SCH (06:20)
[2017-05-07 07:39] VITALS: BP 146/84
[2017-05-07] MEDS: INSULIN ASPART 100 UNITS/ML, PEN SQ-INSULIN SCH ×3 (08:59→22:09)
[2017-05-07] MEDS: INSULIN DETEMIR 100 UNITS/ML, PEN SQ-INSULIN SCH ×2 (09:04→22:09)
[2017-05-07] MEDS: DULOXETINE 30 MG CAPSULE.DR PO SCH ×2 (09:07→22:10)
[2017-05-07] MEDS: CALCIUM CARBONATE 500 MG TAB.CHEW PO SCH ×3 (09:07→17:29)
[2017-05-07] MEDS: CYANOCOBALAMIN 1,000 MCG TABLET PO SCH (09:07)
[2017-05-07] MEDS: ASCORBIC ACID 500 MG TABLET PO SCH (09:07)
[2017-05-07] MEDS: MEXILETINE 150 MG CAPSULE PO SCH ×2 (09:07→22:10)
[2017-05-07] MEDS: CINACALCET 30 MG TABLET PO SCH (09:07)
[2017-05-07] MEDS: OMEPRAZOLE 20 MG CAPSULE.DR PO SCH (09:07)
[2017-05-07] MEDS: SODIUM CHLORIDE FLUSH 10ML SYR IVF SCH ×2 (09:08→22:10)
[2017-05-07] MEDS: TEMPLATE NON-FORMULARY MED. (Cyclosporine (Restasis) 1 DROP) TP SCH ×2 (09:09→21:00)
[2017-05-07] MEDS ORDERED: INSULIN ASPART 100 UNITS/ML, PEN SQ-INSULIN SCH (11:00)
[2017-05-07] MEDS: HYDROcodone/APAP 10/325 MG TABLET PO PRN ×2 (12:58→22:09)
[2017-05-07 14:20] VITALS: BP 150/80
[2017-05-07] MEDS: HEPARIN 5,000 UNITS/ML, 1ML SQ SCH (17:29)
[2017-05-07 19:00] LABS: HEMATOCRIT 28.7 % (34.6-47.8); HEMOGLOBIN 9.3 g/dL (11.7-16.4); WHITE BLOOD COUNT 19.5 x10^3/uL (3.4-10)
[2017-05-07 19:14] LABS: DIFF TOTAL CELLS COUNTED 100 CELL DIFF
[2017-05-07 19:16] LABS: VERIFY COUNTS? YES
[2017-05-07 19:18] LABS: ANISOCYTOSIS 1+; POLYCHROMASIA 1+
[2017-05-07 20:10] VITALS: BP 145/64
[2017-05-07] MEDS: TEMPLATE NON-FORMULARY MED. (Rosuvastatin Calcium** (Crestor**) 10 MG) HOMEMEDPO SCH (21:00)
[2017-05-07] MEDS: CLOPIDOGREL 75 MG TABLET PO SCH (22:09)
[2017-05-07] MEDS: ATENOLOL 25 MG TABLET PO SCH (22:09)
[2017-05-07] MEDS: TERAZOSIN 5MG CAPSULE PO SCH (22:10)
[2017-05-08 01:45] VITALS: BP 124/66
[2017-05-08] MEDS: PIPERACILLIN/TAZO/PMX 2.25GM 50 ML IV SCH ×3 (03:22→20:56)
[2017-05-08] MEDS: HEPARIN 5,000 UNITS/ML, 1ML SQ SCH ×3 (03:23→20:56)
[2017-05-08] MEDS: LEVOTHYROXINE 100 MCG TABLET PO SCH (06:01)
[2017-05-08 07:42] VITALS: BP 151/77
[2017-05-08] MEDS: ASCORBIC ACID 500 MG TABLET PO SCH (08:15)
[2017-05-08] MEDS: CINACALCET 30 MG TABLET PO SCH (08:15)
[2017-05-08] MEDS: INSULIN DETEMIR 100 UNITS/ML, PEN SQ-INSULIN SCH ×2 (08:15→20:57)
[2017-05-08] MEDS: INSULIN ASPART 100 UNITS/ML, PEN SQ-INSULIN SCH ×4 (08:15→20:58)
[2017-05-08] MEDS: CYANOCOBALAMIN 1,000 MCG TABLET PO SCH (08:15)
[2017-05-08] MEDS: MEXILETINE 150 MG CAPSULE PO SCH ×2 (08:15→20:58)
[2017-05-08] MEDS: TEMPLATE NON-FORMULARY MED. (Cyclosporine (Restasis) 1 DROP) TP SCH ×2 (08:16→20:59)
[2017-05-08] MEDS: SODIUM CHLORIDE FLUSH 10ML SYR IVF SCH ×2 (08:16→20:58)
[2017-05-08] MEDS: CALCIUM CARBONATE 500 MG TAB.CHEW PO SCH ×3 (08:16→17:48)
[2017-05-08] MEDS: DULOXETINE 30 MG CAPSULE.DR PO SCH ×2 (08:16→20:57)
[2017-05-08] MEDS: OMEPRAZOLE 20 MG CAPSULE.DR PO SCH (08:16)
[2017-05-08] MEDS: HYDROcodone/APAP 10/325 MG TABLET PO PRN (13:19)
[2017-05-08 14:50] VITALS: BP 183/57
[2017-05-08 19:26] VITALS: BP 138/63
[2017-05-08] MEDS: ATENOLOL 25 MG TABLET PO SCH (20:56)
[2017-05-08] MEDS: CLOPIDOGREL 75 MG TABLET PO SCH (20:57)
[2017-05-08] MEDS: TEMPLATE NON-FORMULARY MED. (Rosuvastatin Calcium** (Crestor**) 10 MG) HOMEMEDPO SCH (20:58)
[2017-05-08] MEDS: TERAZOSIN 5MG CAPSULE PO SCH (20:58)
[2017-05-09 01:49] VITALS: BP 129/60
[2017-05-09] MEDS: HEPARIN 5,000 UNITS/ML, 1ML SQ SCH ×2 (05:16→15:41)
[2017-05-09] MEDS: PIPERACILLIN/TAZO/PMX 2.25GM 50 ML IV SCH ×2 (05:16→15:41)
[2017-05-09] MEDS: LEVOTHYROXINE 100 MCG TABLET PO SCH (05:18)
[2017-05-09] MEDS: INSULIN ASPART 100 UNITS/ML, PEN SQ-INSULIN SCH ×3 (07:00→15:52)
[2017-05-09] MEDS: OMEPRAZOLE 20 MG CAPSULE.DR PO SCH (07:30)
[2017-05-09] MEDS: HYDROcodone/APAP 10/325 MG TABLET PO PRN (07:58)
[2017-05-09 08:00] VITALS: BP 161/79
[2017-05-09] MEDS: CALCIUM CARBONATE 500 MG TAB.CHEW PO SCH ×3 (08:17→15:47)
[2017-05-09] MEDS: CYANOCOBALAMIN 1,000 MCG TABLET PO SCH (08:17)
[2017-05-09] MEDS: CINACALCET 30 MG TABLET PO SCH (08:17)
[2017-05-09] MEDS: DULOXETINE 30 MG CAPSULE.DR PO SCH (08:18)
[2017-05-09] MEDS: INSULIN DETEMIR 100 UNITS/ML, PEN SQ-INSULIN SCH (08:18)
[2017-05-09] MEDS: MEXILETINE 150 MG CAPSULE PO SCH (08:18)
[2017-05-09] MEDS: TEMPLATE NON-FORMULARY MED. (Cyclosporine (Restasis) 1 DROP) TP SCH (09:00)
[2017-05-09] MEDS: SODIUM CHLORIDE FLUSH 10ML SYR IVF SCH (11:49)
[2017-05-09] MEDS: ASCORBIC ACID 500 MG TABLET PO SCH (11:49)
[2017-05-09 13:22] VITALS: BP 123/55
[2017-05-09] MEDS ORDERED: PIPE2.253 IV (14:51)
[2017-05-09] MEDS ORDERED: HYDR-3307 PO (14:51)
[2017-05-09] MEDS ORDERED: INSU100I28 SQ-INSULIN ×2 (14:51)
[2017-05-09] MEDS ORDERED: INSU100I18 SQ-INSULIN (14:51)
[2017-05-09] MEDS ORDERED: OMEP-110 PO (14:51)
[2017-05-09] MEDS ORDERED: POLY17PO5 PO (14:51)
[2017-05-09] MEDS ORDERED: DARB60VI SQ (14:51)
== END 2017-05-09 18:25 | DRG 255 ==
LOC: ED 17:50 → EDIP 19:22 → 3NE 20:40 → 4EST 04-27 20:47
PROVIDERS: ADMIT Family Medicine; ATTEND Family Medicine
PROC: 0Y6Y0Z1 Detachment at Left 5th Toe, High, Open Approach (ICD-10-PCS; principal; 2017-04-26)
PROC: 02HV33Z Insertion of Infusion Device into Superior Vena Cava, Percutaneous Approach (ICD-10-PCS; 2017-04-27)
PROC: B5181ZA Fluoroscopy of Superior Vena Cava using Low Osmolar Contrast, Guidance (ICD-10-PCS; 2017-04-27)
PROC: 5A1D60Z (ICD-10-PCS; 2017-04-29)
PROC: 0JBR0ZZ Excision of Left Foot Subcutaneous Tissue and Fascia, Open Approach (ICD-10-PCS; 2017-05-05)
PROC: 30233N1 Transfusion of Nonautologous Red Blood Cells into Peripheral Vein, Percutaneous Approach (ICD-10-PCS; 2017-05-06)
DX: E11.52 Type 2 diabetes mellitus with diabetic peripheral angiopathy with gangrene (principal); N18.6 End stage renal disease; E43 Unspecified severe protein-calorie malnutrition; I13.2 Hypertensive heart and chronic kidney disease with heart failure and with stage 5 chronic kidney disease, or end stage renal disease; J96.10 Chronic respiratory failure, unspecified whether with hypoxia or hypercapnia; J84.9 Interstitial pulmonary disease, unspecified; D63.1 Anemia in chronic kidney disease; S91.119A Laceration without foreign body of unspecified toe without damage to nail, initial encounter; E87.1 Hypo-osmolality and hyponatremia; F33.0 Major depressive disorder, recurrent, mild; I50.32 Chronic diastolic (congestive) heart failure; T81.4XXA Infection following a procedure, initial encounter; E87.6 Hypokalemia; E11.22 Type 2 diabetes mellitus with diabetic chronic kidney disease; E78.5 Hyperlipidemia, unspecified; E66.9 Obesity, unspecified; E03.9 Hypothyroidism, unspecified; E11.69 Type 2 diabetes mellitus with other specified complication; D86.0 Sarcoidosis of lung; E11.42 Type 2 diabetes mellitus with diabetic polyneuropathy; E11.319 Type 2 diabetes mellitus with unspecified diabetic retinopathy without macular edema; E11.649 Type 2 diabetes mellitus with hypoglycemia without coma; L03.032 Cellulitis of left toe; M10.9 Gout, unspecified; M79.7 Fibromyalgia; W19.XXXA Unspecified fall, initial encounter; B96.4 Proteus (mirabilis) (morganii) as the cause of diseases classified elsewhere; B95.4 Other streptococcus as the cause of diseases classified elsewhere; B96.89 Other specified bacterial agents as the cause of diseases classified elsewhere; Y93.89 Activity, other specified; Y92.89 Other specified places as the place of occurrence of the external cause; Y99.8 Other external cause status; Z68.34 Body mass index [BMI] 34.0-34.9, adult; Z99.81 Dependence on supplemental oxygen; Z79.4 Long term (current) use of insulin; Z82.49 Family history of ischemic heart disease and other diseases of the circulatory system; Z83.3 Family history of diabetes mellitus; Z99.2 Dependence on renal dialysis; Z16.11 Resistance to penicillins
CPT/HCPCS: 36415; 36569; 71020; 76937; 77001; 80048; 80053; 80069; 80202; 82040; 82306; 82728; 82947; 82962; 83036; 83540; 83550; 83735; 83970; 84100; 84439; 84443; 85014; 85018; 85025; 85651; 86140; 86704; 86706; 86850; 86900; 86923; 87040; 87070; 87077; 87147; 87186; 87205; 87340; 88305; 93922; 93925; 96374; J0295; J0696; J0881; J1644; J1815; J2250; J2405; J2543; J2704; J3010; J3370; C1751; J7050; P9016

== ENCOUNTER 2017-06-03 14:46 | Inpatient (IN) | payer OTHER ==
[~2017-06-03] VITALS: Ht 162.6 cm; Wt 86.4 kg
[~2017-06-03 14:46] MED LIST changes: +DARB60VI SQ; +INSU100I18 SQ-INSULIN; +INSU100I28 SQ-INSULIN; +OMEP-110 PO; +PIPE2.253 IV; +POLY17PO5 PO
[2017-06-03 15:56] LABS: HEMATOCRIT 30.3 % (34.6-47.8); HEMOGLOBIN 9.8 g/dL (11.7-16.4); WHITE BLOOD COUNT 14.3 x10^3/uL (3.4-10)
[2017-06-03 16:13] LABS: BLOOD UREA NITROGEN 19 mg/dL (7-18)
[2017-06-03 16:18] LABS: POLYCHROMASIA 1+
[2017-06-03] MEDS ORDERED: SODIUM CHLORIDE 0.9% 1,000 ML IV ONE (16:25)
[2017-06-03] MEDS ORDERED: SODIUM CHLORIDE FLUSH 10ML SYR IVF ONE (16:30)
[2017-06-03] MEDS ORDERED: POTASSIUM CHLORIDE 40 MEQ in SODIUM CHLORIDE 0.9% 500 ML IV ONE (17:30)
[2017-06-03] MEDS ORDERED: POTASSIUM CHLORIDE 20 MEQ TAB.ER.PRT PO ONE ×2 (18:00→19:00)
[2017-06-03] MEDS ORDERED: PIPERACILLIN/TAZO/PMX 3.375GM 50 ML IV ONE (18:00)
[2017-06-03] MEDS ORDERED: POTASSIUM CHLORIDE 20 MEQ TAB.ER.PRT ONE (18:10)
[2017-06-03] MEDS ORDERED: PIPERACILLIN/TAZO/PMX 3.375GM 0 ML ONE (18:10)
[2017-06-03] MEDS ORDERED: DOCUSATE 100 MG CAPSULE PO PRN (19:00)
[2017-06-03] MEDS ORDERED: CARISOPRODOL 350 MG TABLET PO PRN (19:00)
[2017-06-03] MEDS ORDERED: GLUCAGON 1 MG IM PRN (19:00)
[2017-06-03] MEDS ORDERED: BISACODYL 10 MG SUPP PR PRN (19:00)
[2017-06-03] MEDS ORDERED: PIPERACILLIN/TAZO 2.25 GM VIAL IV SCH (19:00)
[2017-06-03] MEDS ORDERED: ONDANSETRON 2MG/ML, 2ML IVPush PRN (19:00)
[2017-06-03] MEDS ORDERED: hydrALAzine 20 MG/ML, 1ML IVPush PRN (19:00)
[2017-06-03] MEDS ORDERED: DEXTROSE 4 GM TAB.CHEW PO PRN (19:00)
[2017-06-03] MEDS ORDERED: POLYETHYLENE GLYCOL 17 GM PACKET PO PRN (19:00)
[2017-06-03] MEDS ORDERED: HEPARIN 5,000 UNITS/ML, 1ML ONE (20:27)
[2017-06-03] MEDS: INSULIN DETEMIR 100 UNITS/ML, PEN SQ-INSULIN SCH (20:35)
[2017-06-03] MEDS: HEPARIN 5,000 UNITS/ML, 1ML SQ SCH (20:36)
[2017-06-03] MEDS: PIPERACILLIN/TAZO 2.25 GM in NS 50 ML IV SCH (20:36)
[2017-06-03] MEDS: SODIUM CHLORIDE FLUSH 10ML SYR IVF SCH (20:37)
[2017-06-03] MEDS ORDERED: ATORVASTATIN 20 MG TABLET PO SCH (21:00)
[2017-06-03] MEDS ORDERED: TEMPLATE NON-FORMULARY MED. (Cyclosporine (Restasis) 1 DROP) TP SCH (21:00)
[2017-06-03] MEDS ORDERED: MORPHINE SULFATE 4 MG/ML, 1ML ONE (22:05)
[2017-06-03] MEDS: morphine SULFATE 10 MG/ML, 1ML IVPush PRN (22:09)
[2017-06-03] MEDS: ATENOLOL 50 MG TABLET PO SCH (23:14)
[2017-06-03] MEDS: ZOLPIDEM 10MG TABLET PO SCH (23:14)
[2017-06-03] MEDS: DULOXETINE 30 MG CAPSULE.DR PO SCH (23:15)
[2017-06-03] MEDS: TERAZOSIN 5MG CAPSULE PO SCH (23:15)
[2017-06-03] MEDS ORDERED: CLOPIDOGREL 75 MG TABLET ONE (23:18)
[2017-06-03] MEDS: CLOPIDOGREL 75 MG TABLET PO SCH (23:22)
[2017-06-03] MEDS: MEXILETINE 150 MG CAPSULE PO SCH (23:44)
[2017-06-03] MEDS: INSULIN ASPART 100 UNITS/ML, PEN SQ-INSULIN SCH (23:44)
[2017-06-04 05:55] LABS: HEMATOCRIT 29.5 % (34.6-47.8); HEMOGLOBIN 9.7 g/dL (11.7-16.4); WHITE BLOOD COUNT 11.6 x10^3/uL (3.4-10)
[2017-06-04 06:05] LABS: BLOOD UREA NITROGEN 27 mg/dL (7-18)
[2017-06-04] MEDS: INSULIN ASPART 100 UNITS/ML, PEN SQ-INSULIN SCH ×4 (07:00→21:00)
[2017-06-04 07:45] VITALS: BP 132/66
[2017-06-04] MEDS: CYANOCOBALAMIN 1,000 MCG TABLET PO SCH (09:34)
[2017-06-04] MEDS: CINACALCET 30 MG TABLET PO SCH (09:34)
[2017-06-04] MEDS: MEXILETINE 150 MG CAPSULE PO SCH ×2 (09:34→21:19)
[2017-06-04] MEDS: ASCORBIC ACID 500 MG TABLET PO SCH (09:34)
[2017-06-04] MEDS: CALCIUM CARBONATE 500 MG TAB.CHEW PO SCH ×3 (09:35→17:45)
[2017-06-04] MEDS: DULOXETINE 30 MG CAPSULE.DR PO SCH ×2 (09:35→21:19)
[2017-06-04] MEDS: OMEPRAZOLE 20 MG CAPSULE.DR PO SCH (09:35)
[2017-06-04] MEDS: LEVOTHYROXINE 100 MCG TABLET PO SCH (09:35)
[2017-06-04] MEDS: PIPERACILLIN/TAZO 2.25 GM in NS 50 ML IV SCH ×2 (09:50→17:46)
[2017-06-04] MEDS: HYDROcodone/APAP 10/325 MG TABLET PO PRN ×2 (09:50→21:23)
[2017-06-04] MEDS: HEPARIN 5,000 UNITS/ML, 1ML SQ SCH ×2 (09:51→17:46)
[2017-06-04] MEDS: SODIUM CHLORIDE FLUSH 10ML SYR IVF SCH ×2 (12:00→21:00)
[2017-06-04] MEDS: INSULIN DETEMIR 100 UNITS/ML, PEN SQ-INSULIN SCH ×2 (12:00→17:46)
[2017-06-04 13:22] VITALS: BP 126/73
[2017-06-04 19:00] VITALS: BP 155/76
[2017-06-04] MEDS: CRESTOR 10 MG TAB HOMEMEDPO SCH (21:00)
[2017-06-04] MEDS: CLOPIDOGREL 75 MG TABLET PO SCH (21:19)
[2017-06-04] MEDS: TERAZOSIN 5MG CAPSULE PO SCH (21:19)
[2017-06-04] MEDS: ATENOLOL 50 MG TABLET PO SCH (21:19)
[2017-06-04] MEDS: ZOLPIDEM 10MG TABLET PO SCH (21:23)
[2017-06-05] MEDS: PIPERACILLIN/TAZO 2.25 GM in NS 50 ML IV SCH ×3 (02:00→21:08)
[2017-06-05] MEDS: HEPARIN 5,000 UNITS/ML, 1ML SQ SCH ×2 (06:00→13:13)
[2017-06-05] MEDS: LEVOTHYROXINE 100 MCG TABLET PO SCH (06:00)
[2017-06-05] MEDS: INSULIN ASPART 100 UNITS/ML, PEN SQ-INSULIN SCH ×4 (07:00→21:08)
[2017-06-05 08:17] LABS: BLOOD UREA NITROGEN 42 mg/dL (7-18)
[2017-06-05 08:20] LABS: HEMATOCRIT 27.2 % (34.6-47.8); HEMOGLOBIN 8.9 g/dL (11.7-16.4); WHITE BLOOD COUNT 13.3 x10^3/uL (3.4-10)
[2017-06-05] MEDS: INSULIN DETEMIR 100 UNITS/ML, PEN SQ-INSULIN SCH ×2 (10:22→17:35)
[2017-06-05] MEDS: CYANOCOBALAMIN 1,000 MCG TABLET PO SCH (10:23)
[2017-06-05] MEDS: CALCIUM CARBONATE 500 MG TAB.CHEW PO SCH ×3 (10:23→17:33)
[2017-06-05] MEDS: ASCORBIC ACID 500 MG TABLET PO SCH (10:24)
[2017-06-05] MEDS: OMEPRAZOLE 20 MG CAPSULE.DR PO SCH (10:24)
[2017-06-05] MEDS: DULOXETINE 30 MG CAPSULE.DR PO SCH ×2 (10:24→21:07)
[2017-06-05] MEDS: MEXILETINE 150 MG CAPSULE PO SCH ×2 (10:25→21:08)
[2017-06-05] MEDS: SODIUM CHLORIDE FLUSH 10ML SYR IVF SCH ×2 (10:31→21:09)
[2017-06-05] MEDS: HYDROcodone/APAP 10/325 MG TABLET PO PRN ×3 (10:50→21:07)
[2017-06-05 12:47] VITALS: BP 113/52
[2017-06-05] MEDS: CINACALCET 30 MG TABLET PO SCH (13:08)
[2017-06-05] MEDS: DAPTOMYCIN 500 MG in SODIUM CHLORIDE 0.9% 100 ML IVPB SCH (20:03)
[2017-06-05 20:30] VITALS: BP 149/72
[2017-06-05] MEDS: CRESTOR 10 MG TAB HOMEMEDPO SCH (21:00)
[2017-06-05] MEDS: ZOLPIDEM 10MG TABLET PO SCH (21:07)
[2017-06-05] MEDS: ATENOLOL 50 MG TABLET PO SCH (21:07)
[2017-06-05] MEDS: TERAZOSIN 5MG CAPSULE PO SCH (21:07)
[2017-06-05] MEDS ORDERED: DIPHENHYDRAMINE 25 MG CAPSULE PO PRN (22:30)
[2017-06-06 02:00] VITALS: BP 147/55
[2017-06-06] MEDS: PIPERACILLIN/TAZO 2.25 GM in NS 50 ML IV SCH ×2 (05:18→18:16)
[2017-06-06 05:50] LABS: HEMATOCRIT 29.3 % (34.6-47.8); HEMOGLOBIN 9.6 g/dL (11.7-16.4); WHITE BLOOD COUNT 15.5 x10^3/uL (3.4-10)
[2017-06-06] MEDS: LEVOTHYROXINE 100 MCG TABLET PO SCH (05:56)
[2017-06-06 06:03] LABS: BLOOD UREA NITROGEN 28 mg/dL (7-18)
[2017-06-06] MEDS ORDERED: EPINEPHRINE 1 MG/ML, 1ML ONE (06:37)
[2017-06-06] MEDS ORDERED: BUPIVACAINE/PF 0.5% ONE (06:37)
[2017-06-06] MEDS ORDERED: BACITRACIN 50,000 UNIT ONE (06:38)
[2017-06-06 06:54] VITALS: BP 136/76
[2017-06-06] MEDS: INSULIN ASPART 100 UNITS/ML, PEN SQ-INSULIN SCH ×4 (07:00→21:00)
[2017-06-06] MEDS: ASCORBIC ACID 500 MG TABLET PO SCH (09:04)
[2017-06-06] MEDS: DULOXETINE 30 MG CAPSULE.DR PO SCH ×2 (09:05→21:17)
[2017-06-06] MEDS: CINACALCET 30 MG TABLET PO SCH (09:05)
[2017-06-06] MEDS: OMEPRAZOLE 20 MG CAPSULE.DR PO SCH (09:05)
[2017-06-06] MEDS: CALCIUM CARBONATE 500 MG TAB.CHEW PO SCH ×3 (09:05→17:00)
[2017-06-06] MEDS: MEXILETINE 150 MG CAPSULE PO SCH ×2 (09:05→21:17)
[2017-06-06] MEDS: CYANOCOBALAMIN 1,000 MCG TABLET PO SCH (09:05)
[2017-06-06] MEDS: SODIUM CHLORIDE FLUSH 10ML SYR IVF SCH ×2 (09:05→21:18)
[2017-06-06] MEDS: HYDROcodone/APAP 10/325 MG TABLET PO PRN ×2 (09:21→21:30)
[2017-06-06] MEDS: INSULIN DETEMIR 100 UNITS/ML, PEN SQ-INSULIN SCH ×2 (09:25→17:00)
[2017-06-06] MEDS ORDERED: FENTANYL PF 100 MCG/2ML ONE ×3 (12:56→16:33)
[2017-06-06] MEDS ORDERED: MIDAZOLAM 1 MG/ML, 2ML ONE (12:56)
[2017-06-06] MEDS ORDERED: ROCURONIUM 10 MG/ML ONE (13:13)
[2017-06-06] MEDS ORDERED: GLYCOPYRROLATE 0.2MG/1ML ONE (13:13)
[2017-06-06] MEDS ORDERED: ONDANSETRON 2MG/ML, 2ML ONE (13:13)
[2017-06-06] MEDS ORDERED: NEOSTIGMINE 1 MG/ML, 10ML ONE (13:13)
[2017-06-06] MEDS ORDERED: PROPOFOL 10 MG/ML, 20ML ONE (13:13)
[2017-06-06] MEDS ORDERED: ACETAMINOPHEN 325 MG TABLET PO PRN (14:30)
[2017-06-06] MEDS ORDERED: ALBUTEROL SULFATE 2.5 MG/3 ML NPPB PRN (14:30)
[2017-06-06] MEDS ORDERED: LABETALOL 5MG/ML, 20ML IV PRN (14:30)
[2017-06-06] MEDS ORDERED: hydrALAzine 20 MG/ML, 1ML IV PRN (14:30)
[2017-06-06] MEDS ORDERED: HYDROmorphone 1 MG/ML, 1ML IV PRN (14:30)
[2017-06-06] MEDS ORDERED: METOPROLOL 1 MG/ML, 5ML IV PRN (14:30)
[2017-06-06] MEDS ORDERED: PROMETHAZINE 25 MG/ML, 1ML IV PRN (14:30)
[2017-06-06] MEDS ORDERED: EPHEDRINE 50 MG/ML, 1ML IVPush PRN (14:30)
[2017-06-06] MEDS ORDERED: HYDROcodone/APAP 7.5-325MG/15ML UDC PO PRN (14:30)
[2017-06-06] MEDS ORDERED: ONDANSETRON 2MG/ML, 2ML IVPush PRN (14:30)
[2017-06-06] MEDS ORDERED: OXYcodone 5 MG/5 ML ORAL.SOL UDC PO PRN (14:30)
[2017-06-06] MEDS ORDERED: HYDROmorphone 2 MG/ML, 1ML ONE (14:53)
[2017-06-06] MEDS ORDERED: HYDROcodone/APAP 7.5-325MG/15ML UDC ONE (16:33)
[2017-06-06] MEDS: FENTANYL PF 100 MCG/2ML IV PRN ×3 (16:39→17:07)
[2017-06-06] MEDS ORDERED: LABETALOL 5MG/ML, 20ML ONE (16:54)
[2017-06-06 19:44] VITALS: BP 113/71
[2017-06-06] MEDS: CRESTOR 10 MG TAB HOMEMEDPO SCH (21:00)
[2017-06-06] MEDS: ZOLPIDEM 10MG TABLET PO SCH (21:00)
[2017-06-06] MEDS: HEPARIN 5,000 UNITS/ML, 1ML SQ SCH (21:00)
[2017-06-06] MEDS: ATENOLOL 50 MG TABLET PO SCH (21:17)
[2017-06-06] MEDS: TERAZOSIN 5MG CAPSULE PO SCH (21:17)
[2017-06-07] MEDS: PIPERACILLIN/TAZO 2.25 GM in NS 50 ML IV SCH ×3 (01:46→21:16)
[2017-06-07 03:49] VITALS: BP 109/59
[2017-06-07] MEDS: HEPARIN 5,000 UNITS/ML, 1ML SQ SCH ×3 (04:53→21:19)
[2017-06-07] MEDS: LEVOTHYROXINE 100 MCG TABLET PO SCH (05:54)
[2017-06-07 06:12] LABS: BLOOD UREA NITROGEN 41 mg/dL (7-18)
[2017-06-07 06:41] VITALS: BP 115/73
[2017-06-07] MEDS: INSULIN ASPART 100 UNITS/ML, PEN SQ-INSULIN SCH ×4 (07:00→21:17)
[2017-06-07] MEDS ORDERED: ERGOCALCIFEROL 50,000 UNIT CAPSULE PO SCH (09:00)
[2017-06-07] MEDS: CINACALCET 30 MG TABLET PO SCH (09:00)
[2017-06-07] MEDS: SODIUM CHLORIDE FLUSH 10ML SYR IVF SCH ×2 (09:15→21:19)
[2017-06-07] MEDS: INSULIN DETEMIR 100 UNITS/ML, PEN SQ-INSULIN SCH ×2 (09:15→17:54)
[2017-06-07] MEDS: MEXILETINE 150 MG CAPSULE PO SCH ×2 (09:18→21:18)
[2017-06-07] MEDS: CYANOCOBALAMIN 1,000 MCG TABLET PO SCH (09:18)
[2017-06-07] MEDS: ASCORBIC ACID 500 MG TABLET PO SCH (09:18)
[2017-06-07] MEDS: CALCIUM CARBONATE 500 MG TAB.CHEW PO SCH ×3 (09:19→17:54)
[2017-06-07] MEDS: DULOXETINE 30 MG CAPSULE.DR PO SCH ×2 (09:19→21:18)
[2017-06-07] MEDS: OMEPRAZOLE 20 MG CAPSULE.DR PO SCH (09:19)
[2017-06-07] MEDS: HYDROcodone/APAP 10/325 MG TABLET PO PRN ×2 (11:12→23:03)
[2017-06-07 14:11] VITALS: BP 112/78
[2017-06-07 19:05] VITALS: BP 109/64
[2017-06-07] MEDS: CRESTOR 10 MG TAB HOMEMEDPO SCH (21:00)
[2017-06-07] MEDS: TERAZOSIN 5MG CAPSULE PO SCH (21:18)
[2017-06-07] MEDS: ATENOLOL 50 MG TABLET PO SCH (21:18)
[2017-06-07] MEDS: ZOLPIDEM 10MG TABLET PO SCH (21:19)
[2017-06-07] MEDS: DAPTOMYCIN 500 MG in SODIUM CHLORIDE 0.9% 100 ML IVPB SCH (23:03)
[2017-06-08 01:43] VITALS: BP 107/68
[2017-06-08] MEDS: LEVOTHYROXINE 100 MCG TABLET PO SCH (05:07)
[2017-06-08] MEDS: HEPARIN 5,000 UNITS/ML, 1ML SQ SCH ×3 (05:08→20:40)
[2017-06-08 05:33] LABS: BLOOD UREA NITROGEN 22 mg/dL (7-18)
[2017-06-08 05:35] LABS: HEMATOCRIT 28.9 % (34.6-47.8); HEMOGLOBIN 9.3 g/dL (11.7-16.4); WHITE BLOOD COUNT 20.2 x10^3/uL (3.4-10)
[2017-06-08] MEDS: INSULIN ASPART 100 UNITS/ML, PEN SQ-INSULIN SCH ×4 (07:00→20:40)
[2017-06-08] MEDS: INSULIN DETEMIR 100 UNITS/ML, PEN SQ-INSULIN SCH ×2 (08:00→14:08)
[2017-06-08 08:15] VITALS: BP 111/72
[2017-06-08] MEDS: CINACALCET 30 MG TABLET PO SCH (08:27)
[2017-06-08] MEDS: ASCORBIC ACID 500 MG TABLET PO SCH (08:27)
[2017-06-08] MEDS: CYANOCOBALAMIN 1,000 MCG TABLET PO SCH (08:27)
[2017-06-08] MEDS: OMEPRAZOLE 20 MG CAPSULE.DR PO SCH (08:28)
[2017-06-08] MEDS: CALCIUM CARBONATE 500 MG TAB.CHEW PO SCH ×3 (08:28→15:51)
[2017-06-08] MEDS: DULOXETINE 30 MG CAPSULE.DR PO SCH ×2 (08:28→20:39)
[2017-06-08] MEDS: MEXILETINE 150 MG CAPSULE PO SCH ×2 (08:28→20:38)
[2017-06-08] MEDS: SODIUM CHLORIDE FLUSH 10ML SYR IVF SCH ×2 (08:29→20:39)
[2017-06-08] MEDS: DEXTROSE 50%, 50ML SYRINGE IVPush PRN (08:53)
[2017-06-08] MEDS ORDERED: DARBEPOETIN 100 MCG/ML SQ SCH (10:30)
[2017-06-08] MEDS ORDERED: ASPIRIN 325 MG TABLET PO ONE (15:00)
[2017-06-08 15:08] LABS: IS PT STATUS REG ER OR PRE ER? NO
[2017-06-08 15:13] VITALS: BP 116/70
[2017-06-08 19:38] VITALS: BP 126/61
[2017-06-08] MEDS: CRESTOR 10 MG TAB HOMEMEDPO SCH (20:28)
[2017-06-08] MEDS: ZOLPIDEM 10MG TABLET PO SCH (20:39)
[2017-06-08] MEDS: TERAZOSIN 5MG CAPSULE PO SCH (20:40)
[2017-06-08] MEDS: ATENOLOL 50 MG TABLET PO SCH (20:40)
[2017-06-08] MEDS ORDERED: INSULIN DETEMIR 100 UNITS/ML, PEN SQ-INSULIN ONE (21:00)
[2017-06-09 01:37] VITALS: BP 100/52
[2017-06-09 03:13] LABS: HEMATOCRIT 24.7 % (34.6-47.8); HEMOGLOBIN 7.9 g/dL (11.7-16.4); WHITE BLOOD COUNT 21.8 x10^3/uL (3.4-10)
[2017-06-09 03:22] LABS: BLOOD UREA NITROGEN 30 mg/dL (7-18)
[2017-06-09 03:33] LABS: IS PT STATUS REG ER OR PRE ER? NO
[2017-06-09] MEDS: LEVOTHYROXINE 100 MCG TABLET PO SCH (05:34)
[2017-06-09] MEDS: HEPARIN 5,000 UNITS/ML, 1ML SQ SCH ×3 (05:34→22:41)
[2017-06-09] MEDS: INSULIN ASPART 100 UNITS/ML, PEN SQ-INSULIN SCH ×4 (08:27→21:00)
[2017-06-09] MEDS: OMEPRAZOLE 20 MG CAPSULE.DR PO SCH (08:28)
[2017-06-09] MEDS: ASCORBIC ACID 500 MG TABLET PO SCH (08:28)
[2017-06-09] MEDS: CALCIUM CARBONATE 500 MG TAB.CHEW PO SCH ×3 (08:28→17:13)
[2017-06-09] MEDS: CINACALCET 30 MG TABLET PO SCH (08:28)
[2017-06-09] MEDS: CYANOCOBALAMIN 1,000 MCG TABLET PO SCH (08:28)
[2017-06-09] MEDS: DULOXETINE 30 MG CAPSULE.DR PO SCH ×2 (08:29→21:00)
[2017-06-09] MEDS: MEXILETINE 150 MG CAPSULE PO SCH ×2 (08:29→22:42)
[2017-06-09] MEDS: HYDROcodone/APAP 10/325 MG TABLET PO PRN ×2 (08:32→22:45)
[2017-06-09] MEDS: INSULIN DETEMIR 100 UNITS/ML, PEN SQ-INSULIN SCH ×2 (08:36→17:14)
[2017-06-09] MEDS: SODIUM CHLORIDE FLUSH 10ML SYR IVF SCH ×2 (08:38→22:43)
[2017-06-09 09:53] VITALS: BP 131/83
[2017-06-09 14:00] VITALS: BP 144/81
[2017-06-09] MEDS: morphine SULFATE 10 MG/ML, 1ML IVPush PRN (15:01)
[2017-06-09 18:03] VITALS: BP 132/77
[2017-06-09 19:42] VITALS: BP 120/73
[2017-06-09] MEDS: CRESTOR 10 MG TAB HOMEMEDPO SCH (21:00)
[2017-06-09] MEDS: ATENOLOL 50 MG TABLET PO SCH (22:42)
[2017-06-09] MEDS: ZOLPIDEM 10MG TABLET PO SCH (22:42)
[2017-06-09] MEDS: TERAZOSIN 5MG CAPSULE PO SCH (22:43)
[2017-06-10 02:21] VITALS: BP 136/69
[2017-06-10 05:34] LABS: BLOOD UREA NITROGEN 45 mg/dL (7-18)
[2017-06-10 05:38] LABS: HEMATOCRIT 25.7 % (34.6-47.8); HEMOGLOBIN 8.3 g/dL (11.7-16.4); WHITE BLOOD COUNT 20.2 x10^3/uL (3.4-10)
[2017-06-10] MEDS: DEXTROSE 50%, 50ML SYRINGE IVPush PRN (05:45)
[2017-06-10] MEDS: LEVOTHYROXINE 100 MCG TABLET PO SCH (06:00)
[2017-06-10 06:06] LABS: DIFF TOTAL CELLS COUNTED 100 CELL DIFF
[2017-06-10 06:08] LABS: ANISOCYTOSIS 1+; VERIFY COUNTS? YES
[2017-06-10] MEDS: HEPARIN 5,000 UNITS/ML, 1ML SQ SCH ×3 (06:08→20:56)
[2017-06-10 06:16] LABS: IS PT STATUS REG ER OR PRE ER? NO
[2017-06-10] MEDS: INSULIN ASPART 100 UNITS/ML, PEN SQ-INSULIN SCH ×4 (07:00→20:52)
[2017-06-10] MEDS: OMEPRAZOLE 20 MG CAPSULE.DR PO SCH (07:30)
[2017-06-10 07:38] VITALS: BP 132/84
[2017-06-10] MEDS: INSULIN DETEMIR 100 UNITS/ML, PEN SQ-INSULIN SCH ×2 (07:49→16:21)
[2017-06-10] MEDS: CALCIUM CARBONATE 500 MG TAB.CHEW PO SCH ×3 (08:00→17:16)
[2017-06-10] MEDS ORDERED: REGADENOSON 0.4 MG/5 ML SYRINGE ONE (08:26)
[2017-06-10] MEDS: SODIUM CHLORIDE FLUSH 10ML SYR IVF SCH ×2 (09:00→21:18)
[2017-06-10] MEDS: CINACALCET 30 MG TABLET PO SCH (11:30)
[2017-06-10] MEDS: DULOXETINE 30 MG CAPSULE.DR PO SCH ×2 (11:30→20:57)
[2017-06-10] MEDS: ASCORBIC ACID 500 MG TABLET PO SCH (11:30)
[2017-06-10] MEDS: MEXILETINE 150 MG CAPSULE PO SCH ×2 (11:30→20:54)
[2017-06-10] MEDS: CYANOCOBALAMIN 1,000 MCG TABLET PO SCH (11:30)
[2017-06-10] MEDS: HYDROcodone/APAP 10/325 MG TABLET PO PRN (13:10)
[2017-06-10 16:58] VITALS: BP 122/79
[2017-06-10 19:19] VITALS: BP 104/60
[2017-06-10] MEDS ORDERED: DEXTROSE 4 GM TAB.CHEW PO PRN (20:00)
[2017-06-10] MEDS ORDERED: BISACODYL 10 MG SUPP PR PRN (20:00)
[2017-06-10] MEDS ORDERED: hydrALAzine 20 MG/ML, 1ML IVPush PRN (20:00)
[2017-06-10] MEDS ORDERED: DEXTROSE 50%, 50ML SYRINGE IVPush PRN (20:00)
[2017-06-10] MEDS: CRESTOR 10 MG TAB HOMEMEDPO SCH (20:52)
[2017-06-10] MEDS: TERAZOSIN 5MG CAPSULE PO SCH (20:53)
[2017-06-10 20:56] VITALS: BP 115/73
[2017-06-10] MEDS: ATENOLOL 50 MG TABLET PO SCH (20:56)
[2017-06-10] MEDS: ZOLPIDEM 10MG TABLET PO SCH (21:15)
[2017-06-11 02:14] VITALS: BP 130/77
[2017-06-11] MEDS: HEPARIN 5,000 UNITS/ML, 1ML SQ SCH ×2 (05:31→12:36)
[2017-06-11] MEDS: LEVOTHYROXINE 100 MCG TABLET PO SCH (05:31)
[2017-06-11] MEDS: INSULIN ASPART 100 UNITS/ML, PEN SQ-INSULIN SCH ×3 (07:00→16:00)
[2017-06-11 07:20] VITALS: BP 127/73
[2017-06-11] MEDS: HYDROcodone/APAP 10/325 MG TABLET PO PRN (08:15)
[2017-06-11] MEDS: CALCIUM CARBONATE 500 MG TAB.CHEW PO SCH ×2 (08:16→12:35)
[2017-06-11] MEDS: DULOXETINE 30 MG CAPSULE.DR PO SCH (08:16)
[2017-06-11] MEDS: MEXILETINE 150 MG CAPSULE PO SCH (08:16)
[2017-06-11] MEDS: OMEPRAZOLE 20 MG CAPSULE.DR PO SCH (08:16)
[2017-06-11] MEDS: CINACALCET 30 MG TABLET PO SCH (08:17)
[2017-06-11] MEDS: CYANOCOBALAMIN 1,000 MCG TABLET PO SCH (08:17)
[2017-06-11] MEDS: ASCORBIC ACID 500 MG TABLET PO SCH (08:17)
[2017-06-11] MEDS: INSULIN DETEMIR 100 UNITS/ML, PEN SQ-INSULIN SCH ×2 (08:18→16:47)
[2017-06-11] MEDS: SODIUM CHLORIDE FLUSH 10ML SYR IVF SCH (09:00)
[2017-06-11] MEDS ORDERED: HYDROcodone/APAP 10/325 MG TABLET PO PRN (12:30)
[2017-06-11 13:55] VITALS: BP 132/77
== END 2017-06-11 18:00 | DRG 853 ==
LOC: ED 17:25 → EDIP 17:31 → ED 18:10 → 4EST 06-04 05:44
PROVIDERS: ADMIT Hospitalist
PROC: 0Y6J0Z1 Detachment at Left Lower Leg, High, Open Approach (ICD-10-PCS; principal; 2017-06-06 13:00)
DX: A41.9 Sepsis, unspecified organism (principal); E43 Unspecified severe protein-calorie malnutrition; I13.2 Hypertensive heart and chronic kidney disease with heart failure and with stage 5 chronic kidney disease, or end stage renal disease; J84.9 Interstitial pulmonary disease, unspecified; J96.10 Chronic respiratory failure, unspecified whether with hypoxia or hypercapnia; N18.6 End stage renal disease; I08.1 Rheumatic disorders of both mitral and tricuspid valves; E87.1 Hypo-osmolality and hyponatremia; L03.116 Cellulitis of left lower limb; M86.9 Osteomyelitis, unspecified; E11.52 Type 2 diabetes mellitus with diabetic peripheral angiopathy with gangrene; E11.69 Type 2 diabetes mellitus with other specified complication; D63.1 Anemia in chronic kidney disease; E11.22 Type 2 diabetes mellitus with diabetic chronic kidney disease; E11.40 Type 2 diabetes mellitus with diabetic neuropathy, unspecified; E66.01 Morbid (severe) obesity due to excess calories; D86.9 Sarcoidosis, unspecified; E03.9 Hypothyroidism, unspecified; E11.319 Type 2 diabetes mellitus with unspecified diabetic retinopathy without macular edema; E11.621 Type 2 diabetes mellitus with foot ulcer; E11.628 Type 2 diabetes mellitus with other skin complications; E11.65 Type 2 diabetes mellitus with hyperglycemia; Z68.32 Body mass index [BMI] 32.0-32.9, adult; E78.5 Hyperlipidemia, unspecified; E87.6 Hypokalemia; F32.9 Major depressive disorder, single episode, unspecified; H55.00 Unspecified nystagmus; H91.90 Unspecified hearing loss, unspecified ear; I25.2 Old myocardial infarction; I35.8 Other nonrheumatic aortic valve disorders; I50.9 Heart failure, unspecified; J44.9 Chronic obstructive pulmonary disease, unspecified; K21.9 Gastro-esophageal reflux disease without esophagitis; L03.032 Cellulitis of left toe; L97.529 Non-pressure chronic ulcer of other part of left foot with unspecified severity; M10.9 Gout, unspecified; M79.7 Fibromyalgia; S93.105A Unspecified dislocation of left toe(s), initial encounter; Z79.4 Long term (current) use of insulin; Z82.49 Family history of ischemic heart disease and other diseases of the circulatory system; Z83.3 Family history of diabetes mellitus; Z87.01 Personal history of pneumonia (recurrent); Z87.891 Personal history of nicotine dependence; Z99.2 Dependence on renal dialysis; Z99.81 Dependence on supplemental oxygen
CPT/HCPCS: 36415; 36556; 70450; 78452; 80048; 80069; 82040; 82550; 82962; 83036; 83605; 83735; 84100; 84145; 84443; 84484; 85025; 85610; 85651; 86141; 86704; 86706; 87040; 87070; 87077; 87186; 87205; 87340; 88307; 93005; 93017; 93306; 96374; C1729; J0171; J0878; J0881; J1170; J1644; J1815; J2250; J2270; J2405; J2543; J2704; J2710; J2785; J3010; J3490; A9502; C1760; C9898; Q0163

== ENCOUNTER → 2017-07-18 | Outpatient (CLI) | payer OTHER | END | disposition home or self-care (01) | LOC: WOUND 13:05 | PROVIDERS: ATTEND Podiatrist Foot & Ankle Surgery | DX: T81.89XD Other complications of procedures, not elsewhere classified, subsequent encounter (principal); E11.622 Type 2 diabetes mellitus with other skin ulcer; L97.821 Non-pressure chronic ulcer of other part of left lower leg limited to breakdown of skin; J44.9 Chronic obstructive pulmonary disease, unspecified; K21.9 Gastro-esophageal reflux disease without esophagitis; E78.5 Hyperlipidemia, unspecified; E11.22 Type 2 diabetes mellitus with diabetic chronic kidney disease; I13.2 Hypertensive heart and chronic kidney disease with heart failure and with stage 5 chronic kidney disease, or end stage renal disease; I50.9 Heart failure, unspecified; N18.6 End stage renal disease; Z99.2 Dependence on renal dialysis; E03.9 Hypothyroidism, unspecified; F32.9 Major depressive disorder, single episode, unspecified; I25.2 Old myocardial infarction; Z87.01 Personal history of pneumonia (recurrent); E11.52 Type 2 diabetes mellitus with diabetic peripheral angiopathy with gangrene; E11.319 Type 2 diabetes mellitus with unspecified diabetic retinopathy without macular edema; Z86.73 Personal history of transient ischemic attack (TIA), and cerebral infarction without residual deficits; Y83.8 Other surgical procedures as the cause of abnormal reaction of the patient, or of later complication, without mention of misadventure at the time of the procedure | CPT/HCPCS: 97597; 97598; 99214 ==

== ENCOUNTER → 2017-07-25 | Outpatient (CLI) | payer OTHER | END | disposition home or self-care (01) | LOC: WOUND 10:31 | PROVIDERS: ATTEND Internal Medicine Cardiovascular Disease | DX: E11.622 Type 2 diabetes mellitus with other skin ulcer (principal); L97.821 Non-pressure chronic ulcer of other part of left lower leg limited to breakdown of skin; J44.9 Chronic obstructive pulmonary disease, unspecified; E11.22 Type 2 diabetes mellitus with diabetic chronic kidney disease; I13.2 Hypertensive heart and chronic kidney disease with heart failure and with stage 5 chronic kidney disease, or end stage renal disease; I50.9 Heart failure, unspecified; N18.6 End stage renal disease; Z99.2 Dependence on renal dialysis; E11.52 Type 2 diabetes mellitus with diabetic peripheral angiopathy with gangrene; E11.319 Type 2 diabetes mellitus with unspecified diabetic retinopathy without macular edema; E78.5 Hyperlipidemia, unspecified; E03.9 Hypothyroidism, unspecified; I25.2 Old myocardial infarction; F32.9 Major depressive disorder, single episode, unspecified; Z87.01 Personal history of pneumonia (recurrent); Z86.73 Personal history of transient ischemic attack (TIA), and cerebral infarction without residual deficits | CPT/HCPCS: 99213 ==

== ENCOUNTER → 2017-08-01 | Outpatient (CLI) | payer OTHER | END | disposition home or self-care (01) | LOC: WOUND 10:49 | PROVIDERS: ATTEND Podiatrist Foot & Ankle Surgery | DX: E11.622 Type 2 diabetes mellitus with other skin ulcer (principal); L97.821 Non-pressure chronic ulcer of other part of left lower leg limited to breakdown of skin; J44.9 Chronic obstructive pulmonary disease, unspecified; E11.22 Type 2 diabetes mellitus with diabetic chronic kidney disease; I13.2 Hypertensive heart and chronic kidney disease with heart failure and with stage 5 chronic kidney disease, or end stage renal disease; I50.9 Heart failure, unspecified; N18.6 End stage renal disease; Z99.2 Dependence on renal dialysis; E78.5 Hyperlipidemia, unspecified; E03.9 Hypothyroidism, unspecified; I25.2 Old myocardial infarction; Z87.01 Personal history of pneumonia (recurrent); Z86.73 Personal history of transient ischemic attack (TIA), and cerebral infarction without residual deficits; E11.319 Type 2 diabetes mellitus with unspecified diabetic retinopathy without macular edema | CPT/HCPCS: 11042 ==

== ENCOUNTER → 2017-08-15 | Outpatient (CLI) | payer OTHER | END | disposition home or self-care (01) | LOC: WOUND 10:59 | PROVIDERS: ATTEND Podiatrist Foot & Ankle Surgery | DX: T81.31XD Disruption of external operation (surgical) wound, not elsewhere classified, subsequent encounter (principal); E11.622 Type 2 diabetes mellitus with other skin ulcer; L97.222 Non-pressure chronic ulcer of left calf with fat layer exposed; J44.9 Chronic obstructive pulmonary disease, unspecified; E11.22 Type 2 diabetes mellitus with diabetic chronic kidney disease; I13.2 Hypertensive heart and chronic kidney disease with heart failure and with stage 5 chronic kidney disease, or end stage renal disease; I50.9 Heart failure, unspecified; N18.6 End stage renal disease; Z99.2 Dependence on renal dialysis; K21.9 Gastro-esophageal reflux disease without esophagitis; E78.5 Hyperlipidemia, unspecified; E03.9 Hypothyroidism, unspecified; I25.2 Old myocardial infarction; Z86.73 Personal history of transient ischemic attack (TIA), and cerebral infarction without residual deficits; E11.52 Type 2 diabetes mellitus with diabetic peripheral angiopathy with gangrene; Z87.01 Personal history of pneumonia (recurrent); E11.319 Type 2 diabetes mellitus with unspecified diabetic retinopathy without macular edema; Y83.8 Other surgical procedures as the cause of abnormal reaction of the patient, or of later complication, without mention of misadventure at the time of the procedure | CPT/HCPCS: 11042 ==

== ENCOUNTER → 2017-08-22 | Outpatient (CLI) | payer OTHER | END | disposition home or self-care (01) | LOC: WOUND 11:00 | PROVIDERS: ATTEND Podiatrist Foot & Ankle Surgery | DX: T81.31XD Disruption of external operation (surgical) wound, not elsewhere classified, subsequent encounter (principal); E11.622 Type 2 diabetes mellitus with other skin ulcer; L97.222 Non-pressure chronic ulcer of left calf with fat layer exposed; J44.9 Chronic obstructive pulmonary disease, unspecified; E11.22 Type 2 diabetes mellitus with diabetic chronic kidney disease; I13.2 Hypertensive heart and chronic kidney disease with heart failure and with stage 5 chronic kidney disease, or end stage renal disease; I50.9 Heart failure, unspecified; N18.6 End stage renal disease; Z99.2 Dependence on renal dialysis; K21.9 Gastro-esophageal reflux disease without esophagitis; E78.5 Hyperlipidemia, unspecified; E03.9 Hypothyroidism, unspecified; Z87.01 Personal history of pneumonia (recurrent); Z86.73 Personal history of transient ischemic attack (TIA), and cerebral infarction without residual deficits; E11.52 Type 2 diabetes mellitus with diabetic peripheral angiopathy with gangrene; E11.319 Type 2 diabetes mellitus with unspecified diabetic retinopathy without macular edema; F32.9 Major depressive disorder, single episode, unspecified; Y83.8 Other surgical procedures as the cause of abnormal reaction of the patient, or of later complication, without mention of misadventure at the time of the procedure | CPT/HCPCS: 11042 ==

== ENCOUNTER → 2017-09-05 | Outpatient (CLI) | payer OTHER | END | disposition home or self-care (01) | LOC: WOUND 10:52 | PROVIDERS: ATTEND Podiatrist Foot & Ankle Surgery | DX: T87.81 Dehiscence of amputation stump (principal); E11.622 Type 2 diabetes mellitus with other skin ulcer; L97.222 Non-pressure chronic ulcer of left calf with fat layer exposed; E11.40 Type 2 diabetes mellitus with diabetic neuropathy, unspecified; E11.319 Type 2 diabetes mellitus with unspecified diabetic retinopathy without macular edema; E11.52 Type 2 diabetes mellitus with diabetic peripheral angiopathy with gangrene; E11.22 Type 2 diabetes mellitus with diabetic chronic kidney disease; I13.2 Hypertensive heart and chronic kidney disease with heart failure and with stage 5 chronic kidney disease, or end stage renal disease; I50.9 Heart failure, unspecified; N18.6 End stage renal disease; J44.9 Chronic obstructive pulmonary disease, unspecified; K21.9 Gastro-esophageal reflux disease without esophagitis; E78.5 Hyperlipidemia, unspecified; E03.9 Hypothyroidism, unspecified; I25.2 Old myocardial infarction; F32.9 Major depressive disorder, single episode, unspecified; F41.9 Anxiety disorder, unspecified; Z99.2 Dependence on renal dialysis; Z87.01 Personal history of pneumonia (recurrent); Z86.73 Personal history of transient ischemic attack (TIA), and cerebral infarction without residual deficits; Y83.5 Amputation of limb(s) as the cause of abnormal reaction of the patient, or of later complication, without mention of misadventure at the time of the procedure | CPT/HCPCS: 11043 ==

== ENCOUNTER → 2017-09-12 | Outpatient (CLI) | payer OTHER | END | disposition home or self-care (01) | LOC: WOUND 09:35 | PROVIDERS: ATTEND Podiatrist Foot & Ankle Surgery | DX: T81.31XD Disruption of external operation (surgical) wound, not elsewhere classified, subsequent encounter (principal); E11.622 Type 2 diabetes mellitus with other skin ulcer; L97.222 Non-pressure chronic ulcer of left calf with fat layer exposed; J44.9 Chronic obstructive pulmonary disease, unspecified; K21.9 Gastro-esophageal reflux disease without esophagitis; E11.22 Type 2 diabetes mellitus with diabetic chronic kidney disease; I13.2 Hypertensive heart and chronic kidney disease with heart failure and with stage 5 chronic kidney disease, or end stage renal disease; N18.6 End stage renal disease; I50.9 Heart failure, unspecified; I25.2 Old myocardial infarction; E78.5 Hyperlipidemia, unspecified; E03.9 Hypothyroidism, unspecified; E11.40 Type 2 diabetes mellitus with diabetic neuropathy, unspecified; E11.52 Type 2 diabetes mellitus with diabetic peripheral angiopathy with gangrene; F32.9 Major depressive disorder, single episode, unspecified; F41.9 Anxiety disorder, unspecified; Z86.73 Personal history of transient ischemic attack (TIA), and cerebral infarction without residual deficits; Z99.2 Dependence on renal dialysis; Y83.8 Other surgical procedures as the cause of abnormal reaction of the patient, or of later complication, without mention of misadventure at the time of the procedure | CPT/HCPCS: 15271; Q4132; 11042 ==

== ENCOUNTER → 2017-09-19 | Outpatient (CLI) | payer OTHER | END | disposition home or self-care (01) | LOC: WOUND 10:46 | PROVIDERS: ATTEND Podiatrist Foot & Ankle Surgery | DX: T81.31XD Disruption of external operation (surgical) wound, not elsewhere classified, subsequent encounter (principal); E11.622 Type 2 diabetes mellitus with other skin ulcer; L97.222 Non-pressure chronic ulcer of left calf with fat layer exposed; F41.9 Anxiety disorder, unspecified; J44.9 Chronic obstructive pulmonary disease, unspecified; K21.9 Gastro-esophageal reflux disease without esophagitis; E11.22 Type 2 diabetes mellitus with diabetic chronic kidney disease; I13.2 Hypertensive heart and chronic kidney disease with heart failure and with stage 5 chronic kidney disease, or end stage renal disease; N18.6 End stage renal disease; I50.9 Heart failure, unspecified; E78.5 Hyperlipidemia, unspecified; E03.8 Other specified hypothyroidism; I25.2 Old myocardial infarction; E11.40 Type 2 diabetes mellitus with diabetic neuropathy, unspecified; E11.52 Type 2 diabetes mellitus with diabetic peripheral angiopathy with gangrene; E11.319 Type 2 diabetes mellitus with unspecified diabetic retinopathy without macular edema; F32.9 Major depressive disorder, single episode, unspecified; Z99.2 Dependence on renal dialysis; Z86.73 Personal history of transient ischemic attack (TIA), and cerebral infarction without residual deficits; Y83.8 Other surgical procedures as the cause of abnormal reaction of the patient, or of later complication, without mention of misadventure at the time of the procedure | CPT/HCPCS: 15271; Q4133 ==

== ENCOUNTER → 2017-09-26 | Outpatient (CLI) | payer OTHER | END | disposition home or self-care (01) | LOC: WOUND 11:00 | PROVIDERS: ATTEND Podiatrist Foot & Ankle Surgery | DX: T81.31XD Disruption of external operation (surgical) wound, not elsewhere classified, subsequent encounter (principal); E11.622 Type 2 diabetes mellitus with other skin ulcer; L97.222 Non-pressure chronic ulcer of left calf with fat layer exposed; E11.69 Type 2 diabetes mellitus with other specified complication; M86.162 Other acute osteomyelitis, left tibia and fibula; F41.9 Anxiety disorder, unspecified; J44.9 Chronic obstructive pulmonary disease, unspecified; K21.9 Gastro-esophageal reflux disease without esophagitis; E11.22 Type 2 diabetes mellitus with diabetic chronic kidney disease; I13.2 Hypertensive heart and chronic kidney disease with heart failure and with stage 5 chronic kidney disease, or end stage renal disease; N18.6 End stage renal disease; I50.9 Heart failure, unspecified; F32.9 Major depressive disorder, single episode, unspecified; I25.2 Old myocardial infarction; E03.8 Other specified hypothyroidism; E11.40 Type 2 diabetes mellitus with diabetic neuropathy, unspecified; E11.52 Type 2 diabetes mellitus with diabetic peripheral angiopathy with gangrene; Z99.2 Dependence on renal dialysis; Z86.73 Personal history of transient ischemic attack (TIA), and cerebral infarction without residual deficits; Y83.8 Other surgical procedures as the cause of abnormal reaction of the patient, or of later complication, without mention of misadventure at the time of the procedure | CPT/HCPCS: 99215 ==

== ENCOUNTER → 2017-10-04 | Outpatient (CLI) | payer OTHER | END | disposition home or self-care (01) | LOC: CFH 13:11 | DX: M86.452 Chronic osteomyelitis with draining sinus, left femur (principal); R60.0 Localized edema; Z89.512 Acquired absence of left leg below knee; Z98.890 Other specified postprocedural states ==

== ENCOUNTER → 2017-10-10 | Outpatient (CLI) | payer OTHER | END | disposition home or self-care (01) | LOC: WOUND 11:00 | PROVIDERS: ATTEND Podiatrist Foot & Ankle Surgery | DX: T81.31XD Disruption of external operation (surgical) wound, not elsewhere classified, subsequent encounter (principal); E11.622 Type 2 diabetes mellitus with other skin ulcer; L97.222 Non-pressure chronic ulcer of left calf with fat layer exposed; E11.69 Type 2 diabetes mellitus with other specified complication; M86.162 Other acute osteomyelitis, left tibia and fibula; M86.062 Acute hematogenous osteomyelitis, left tibia and fibula; M86.5 Other chronic hematogenous osteomyelitis; F41.9 Anxiety disorder, unspecified; J44.9 Chronic obstructive pulmonary disease, unspecified; K21.9 Gastro-esophageal reflux disease without esophagitis; E11.22 Type 2 diabetes mellitus with diabetic chronic kidney disease; I13.2 Hypertensive heart and chronic kidney disease with heart failure and with stage 5 chronic kidney disease, or end stage renal disease; I50.9 Heart failure, unspecified; N18.6 End stage renal disease; F32.9 Major depressive disorder, single episode, unspecified; E03.9 Hypothyroidism, unspecified; I25.2 Old myocardial infarction; G47.33 Obstructive sleep apnea (adult) (pediatric); E03.8 Other specified hypothyroidism; E11.42 Type 2 diabetes mellitus with diabetic polyneuropathy; E11.52 Type 2 diabetes mellitus with diabetic peripheral angiopathy with gangrene; E11.319 Type 2 diabetes mellitus with unspecified diabetic retinopathy without macular edema; Z89.512 Acquired absence of left leg below knee; Z86.73 Personal history of transient ischemic attack (TIA), and cerebral infarction without residual deficits; Z99.2 Dependence on renal dialysis; Y83.8 Other surgical procedures as the cause of abnormal reaction of the patient, or of later complication, without mention of misadventure at the time of the procedure | CPT/HCPCS: 11042 ==

== ENCOUNTER → 2017-10-15 | Outpatient (CLI) | payer OTHER | END | disposition home or self-care (01) | LOC: WOUND 09:20 | PROVIDERS: ATTEND Nurse Practitioner Family | DX: T81.32XD Disruption of internal operation (surgical) wound, not elsewhere classified, subsequent encounter (principal); E11.622 Type 2 diabetes mellitus with other skin ulcer; L97.222 Non-pressure chronic ulcer of left calf with fat layer exposed; E11.69 Type 2 diabetes mellitus with other specified complication; M86.162 Other acute osteomyelitis, left tibia and fibula; E78.2 Mixed hyperlipidemia; F41.9 Anxiety disorder, unspecified; K21.9 Gastro-esophageal reflux disease without esophagitis; E11.40 Type 2 diabetes mellitus with diabetic neuropathy, unspecified; E03.9 Hypothyroidism, unspecified; J44.9 Chronic obstructive pulmonary disease, unspecified; E11.22 Type 2 diabetes mellitus with diabetic chronic kidney disease; I13.2 Hypertensive heart and chronic kidney disease with heart failure and with stage 5 chronic kidney disease, or end stage renal disease; N18.6 End stage renal disease; G47.30 Sleep apnea, unspecified; I25.2 Old myocardial infarction; E11.52 Type 2 diabetes mellitus with diabetic peripheral angiopathy with gangrene; Z99.2 Dependence on renal dialysis; Z86.73 Personal history of transient ischemic attack (TIA), and cerebral infarction without residual deficits; Y83.8 Other surgical procedures as the cause of abnormal reaction of the patient, or of later complication, without mention of misadventure at the time of the procedure | CPT/HCPCS: 87070; 87205; 97597 ==

== ENCOUNTER 2017-10-21 08:21 | Day surgery (SDC) | payer OTHER ==
[2017-10-21] MEDS ORDERED: LIDOCAINE 2%, 20ML ONE (08:57)
[2017-10-21] MEDS ORDERED: DIPHENHYDRAMINE 50 MG/ML, 1ML ONE (09:05)
[2017-10-21] MEDS ORDERED: FLUMAZENIL 0.1 MG/1 ML, 5ML ONE (09:23)
[2017-10-21] MEDS ORDERED: MIDAZOLAM 1 MG/ML, 5ML ONE (09:23)
[2017-10-21] MEDS ORDERED: NALOXONE 1 MG/ML, 2ML ONE (09:23)
[2017-10-21] MEDS ORDERED: FENTANYL PF 100 MCG/2ML ONE (09:23)
[2017-10-21] MEDS ORDERED: NITROGLYCERIN/D5W PMX 0 ML ONE (09:23)
[2017-10-21] MEDS ORDERED: HEPARIN 1,000 UNITS/ML, 10ML ONE (09:23)
[2017-10-21] MEDS ORDERED: PROTAMINE SULFATE 10 MG/ML, 25ML ONE (09:23)
[2017-10-21] MEDS ORDERED: INSU100C SQ-INSULIN (09:28)
[2017-10-21] MEDS ORDERED: DIPHENHYDRAMINE 50 MG/ML, 1ML IVPush ONE (19:30)
== END 2017-10-21 13:30 ==
LOC: OUT 08:21
PROVIDERS: ATTEND Surgery Vascular Surgery
DX: T82.590A Other mechanical complication of surgically created arteriovenous fistula, initial encounter (principal); E11.22 Type 2 diabetes mellitus with diabetic chronic kidney disease; I12.0 Hypertensive chronic kidney disease with stage 5 chronic kidney disease or end stage renal disease; N18.6 End stage renal disease; Y83.8 Other surgical procedures as the cause of abnormal reaction of the patient, or of later complication, without mention of misadventure at the time of the procedure; Y92.89 Other specified places as the place of occurrence of the external cause
CPT/HCPCS: 36415; 36901; 36908; C1725; C1769; C1876; C1894; J1200; J1644; J2250; J2720; J3010; J3490; J2310

== ENCOUNTER → 2017-10-24 | Outpatient (CLI) | payer OTHER ==
[2017-10-21 09:31] VITALS: BP 170/90
[~2017-10-24] VITALS: Ht 162.6 cm; Wt 75.0 kg
[~2017-10-24] MED LIST changes: +DIPHENHYDRAMINE 50 MG/ML, 1ML IVPush ONE; +INSU100C SQ-INSULIN
== END | disposition home or self-care (01) ==
LOC: WOUND 11:00
PROVIDERS: ATTEND Podiatrist Foot & Ankle Surgery
DX: E11.622 Type 2 diabetes mellitus with other skin ulcer (principal); L97.222 Non-pressure chronic ulcer of left calf with fat layer exposed; L97.811 Non-pressure chronic ulcer of other part of right lower leg limited to breakdown of skin; E11.69 Type 2 diabetes mellitus with other specified complication; M86.162 Other acute osteomyelitis, left tibia and fibula; E11.22 Type 2 diabetes mellitus with diabetic chronic kidney disease; I13.2 Hypertensive heart and chronic kidney disease with heart failure and with stage 5 chronic kidney disease, or end stage renal disease; I50.9 Heart failure, unspecified; N18.6 End stage renal disease; K21.9 Gastro-esophageal reflux disease without esophagitis; E03.9 Hypothyroidism, unspecified; J44.9 Chronic obstructive pulmonary disease, unspecified; E78.2 Mixed hyperlipidemia; I25.2 Old myocardial infarction; E11.52 Type 2 diabetes mellitus with diabetic peripheral angiopathy with gangrene; G47.33 Obstructive sleep apnea (adult) (pediatric); E11.42 Type 2 diabetes mellitus with diabetic polyneuropathy; F41.9 Anxiety disorder, unspecified; F32.9 Major depressive disorder, single episode, unspecified; Z89.512 Acquired absence of left leg below knee; Z86.73 Personal history of transient ischemic attack (TIA), and cerebral infarction without residual deficits; Z89.9 Acquired absence of limb, unspecified; Z99.2 Dependence on renal dialysis
CPT/HCPCS: 11042; 87070; 87077; 87186; 87205

== ENCOUNTER → 2017-10-31 | Outpatient (CLI) | payer OTHER ==
[~2017-10-31] MED LIST changes: -DIPHENHYDRAMINE 50 MG/ML, 1ML IVPush ONE
[2017-10-31 15:28] LABS: BASOPHILS # (AUTO) 0.06 x10^3/uL (0-0.1); BASOPHILS % (AUTO) 1 % (0-1); EOSINOPHILS # (AUTO) 0.27 x10^3/uL (0-0.4); EOSINOPHILS % (AUTO) 3 % (1-7); HCT (SEDRATE) 33.9 % (34.6-47.8); LYMPHOCYTES # (AUTO) 2.37 x10^3/uL (1-3.4); LYMPHOCYTES % (AUTO) 25 % (22-44); MD NO; MEAN CORPUSCULAR HEMOGLOBIN 27.7 pg (27.0-34.8); MEAN CORPUSCULAR VOLUME 86.7 fL (80-100); MEAN PLATELET VOLUME 8.5 fL (7.4-10.4); MONOCYTES # (AUTO) 0.75 x10^3/uL (0.2-0.8); MONOCYTES % (AUTO) 8 % (2-9); NEUTROPHILS # (AUTO) 6.23 x10^3/uL (1.8-6.8); NEUTROPHILS % (AUTO) 64 % (42-75); PLATELET COUNT 290 x10^3/uL (130-400); RED BLOOD COUNT 3.97 x10^6/uL (3.82-5.3); RED CELL DISTRIBUTION WIDTH 19.2 % (9.6-15.2)
[2017-10-31 15:37] LABS: ALANINE AMINOTRANSFERASE 22 U/L (12-78); ALBUMIN 3.8 g/dL (3.4-5.0); ANION GAP 12 mmol/L (5-15); C-REACTIVE PROTEIN, QUANT 0.63 mg/dL (0.02-0.49); CALCIUM 8.5 mg/dL (8.5-10.1); CHLORIDE 97 mmol/L (98-107); CREATININE 3.86 mg/dL (0.55-1.02)
[2017-10-31 15:38] LABS: ALKALINE PHOSPHATASE 106 U/L (45-117); BILIRUBIN,TOTAL 0.5 mg/dL (0.2-1.0); TOTAL PROTEIN 8.6 g/dL (6.4-8.2)
== END | disposition home or self-care (01) ==
LOC: LAB 11:30
PROVIDERS: ATTEND Internal Medicine Infectious Disease
DX: M86.071 Acute hematogenous osteomyelitis, right ankle and foot (principal); E11.40 Type 2 diabetes mellitus with diabetic neuropathy, unspecified; R70.0 Elevated erythrocyte sedimentation rate
CPT/HCPCS: 36415; 80053; 85025; 85651; 86140

== ENCOUNTER → 2017-10-31 | Outpatient (CLI) | payer OTHER ==
[2017-10-21 09:31] VITALS: BP 170/90
== END | disposition home or self-care (01) ==
LOC: WOUND 10:37
PROVIDERS: ATTEND Podiatrist Foot & Ankle Surgery
DX: E11.622 Type 2 diabetes mellitus with other skin ulcer (principal); L97.222 Non-pressure chronic ulcer of left calf with fat layer exposed; E11.69 Type 2 diabetes mellitus with other specified complication; M86.062 Acute hematogenous osteomyelitis, left tibia and fibula; M86.452 Chronic osteomyelitis with draining sinus, left femur; M86.631 Other chronic osteomyelitis, right radius and ulna; E11.52 Type 2 diabetes mellitus with diabetic peripheral angiopathy with gangrene; E11.42 Type 2 diabetes mellitus with diabetic polyneuropathy; E11.319 Type 2 diabetes mellitus with unspecified diabetic retinopathy without macular edema; E11.40 Type 2 diabetes mellitus with diabetic neuropathy, unspecified; J44.9 Chronic obstructive pulmonary disease, unspecified; E11.22 Type 2 diabetes mellitus with diabetic chronic kidney disease; I13.2 Hypertensive heart and chronic kidney disease with heart failure and with stage 5 chronic kidney disease, or end stage renal disease; I50.9 Heart failure, unspecified; N18.6 End stage renal disease; E03.8 Other specified hypothyroidism; F41.9 Anxiety disorder, unspecified; K21.9 Gastro-esophageal reflux disease without esophagitis; G47.30 Sleep apnea, unspecified; I25.2 Old myocardial infarction; G47.33 Obstructive sleep apnea (adult) (pediatric); F32.9 Major depressive disorder, single episode, unspecified; E78.2 Mixed hyperlipidemia; Z89.512 Acquired absence of left leg below knee; Z99.2 Dependence on renal dialysis; Z86.73 Personal history of transient ischemic attack (TIA), and cerebral infarction without residual deficits
CPT/HCPCS: 99214

== ENCOUNTER 2017-11-12 05:32 | Inpatient (IN) | payer OTHER ==
[~2017-11-12] VITALS: Ht 162.6 cm; Wt 78.5 kg
[~2017-11-12 05:32] MED LIST changes: +INSU100V13 SC; +LEVO75TA5 PO; +MIRALAX PO
[2017-11-12] MEDS ORDERED: LACTATED RINGERS 1,000 ML IV SCH (06:18)
[2017-11-12] MEDS ORDERED: MIDAZOLAM 1 MG/ML, 2ML ONE (07:03)
[2017-11-12 07:04] LABS: INTERNATIONAL NORMALIZED RATIO 1.02 (0.93-1.1); PROTHROMBIN TIME 10.5 Seconds (9.6-11.5)
[2017-11-12] MEDS ORDERED: FENTANYL PF 250 MCG/5ML ONE (07:04)
[2017-11-12] MEDS ORDERED: SODIUM CHLORIDE 0.9% 1,000 ML IV SCH (07:04)
[2017-11-12] MEDS ORDERED: DEXTROSE 50%, 50ML SYRINGE IVPush STA (07:23)
[2017-11-12 07:30] LABS: ALANINE AMINOTRANSFERASE 19 U/L (12-78); ALBUMIN 3.4 g/dL (3.4-5.0); ANION GAP 8 mmol/L (5-15); CALCIUM 8.3 mg/dL (8.5-10.1); CHLORIDE 102 mmol/L (98-107); CREATININE 4.36 mg/dL (0.55-1.02)
[2017-11-12] MEDS ORDERED: HYDROcodone/APAP 7.5-325MG/15ML UDC PO PRN (07:30)
[2017-11-12] MEDS ORDERED: ONDANSETRON 2MG/ML, 2ML IVPush PRN ×2 (07:30→12:00)
[2017-11-12] MEDS ORDERED: HYDROmorphone 1 MG/ML, 1ML IV PRN (07:30)
[2017-11-12] MEDS ORDERED: OXYcodone 5 MG/5 ML ORAL.SOL UDC PO PRN (07:30)
[2017-11-12] MEDS ORDERED: LABETALOL 5MG/ML, 20ML IV PRN (07:30)
[2017-11-12] MEDS ORDERED: ACETAMINOPHEN 325 MG TABLET PO PRN ×2 (07:30→12:00)
[2017-11-12] MEDS ORDERED: FENTANYL PF 100 MCG/2ML IV PRN (07:30)
[2017-11-12 07:32] LABS: ALKALINE PHOSPHATASE 96 U/L (45-117); BILIRUBIN,TOTAL 0.4 mg/dL (0.2-1.0); TOTAL PROTEIN 7.6 g/dL (6.4-8.2)
[2017-11-12] MEDS ORDERED: PROPOFOL 10 MG/ML, 20ML ONE (07:51)
[2017-11-12] MEDS ORDERED: ONDANSETRON 2MG/ML, 2ML ONE (07:51)
[2017-11-12] MEDS ORDERED: CEFAZOLIN 1,000 MG ONE (07:51)
[2017-11-12] MEDS ORDERED: DEXAMETHASONE 4 MG/ML, 1ML ONE ×2 (07:51)
[2017-11-12] MEDS ORDERED: EPINEPHRINE 1 MG/ML, 1ML ONE (08:20)
[2017-11-12] MEDS ORDERED: BUPIVACAINE/PF 0.5% ONE (08:20)
[2017-11-12] MEDS ORDERED: BACITRACIN 50,000 UNIT ONE (08:42)
[2017-11-12] MEDS ORDERED: DEXTROSE 50%, 50ML SYRINGE ONE (09:19)
[2017-11-12] MEDS ORDERED: CARISOPRODOL 350 MG TABLET PO PRN (09:30)
[2017-11-12] MEDS ORDERED: D5%-LACTATED RINGERS 1,000 ML IV SCH (10:00)
[2017-11-12] MEDS ORDERED: DEXTROSE 10% 1,000 ML IV SCH ×2 (11:00→11:30)
[2017-11-12] MEDS ORDERED: hydrALAzine 20 MG/ML, 1ML IVPush PRN (12:00)
[2017-11-12] MEDS ORDERED: DEXTROSE 5% 1,000 ML IV PRN (12:00)
[2017-11-12 12:37] LABS: HEMOGLOBIN A1C 7.7 % (4.2-6.3)
[2017-11-12 13:06] VITALS: BP 166/86
[2017-11-12] MEDS ORDERED: OXYcodone/APAP 5/325MG TABLET ONE (13:14)
[2017-11-12] MEDS: OXYcodone/APAP 5/325MG TABLET PO PRN ×3 (13:15→21:38)
[2017-11-12] MEDS: ALPRazolam 1MG TABLET PO PRN ×2 (14:04→22:06)
[2017-11-12 19:20] VITALS: BP 128/71
[2017-11-12] MEDS: MEXILETINE 150 MG CAPSULE PO SCH (20:43)
[2017-11-12] MEDS: ATENOLOL 25 MG TABLET PO SCH (20:44)
[2017-11-12] MEDS: ZOLPIDEM 10MG TABLET PO SCH (20:52)
[2017-11-12] MEDS ORDERED: ATENOLOL 50 MG TABLET PO SCH (21:00)
[2017-11-12] MEDS: TERAZOSIN 5MG CAPSULE PO SCH (21:37)
[2017-11-12 23:14] VITALS: BP 155/81
[2017-11-13 03:40] VITALS: BP 124/68
[2017-11-13] MEDS: OXYcodone/APAP 5/325MG TABLET PO PRN ×3 (03:47→21:12)
[2017-11-13 05:37] LABS: BASOPHILS # (AUTO) 0.07 x10^3/uL (0-0.1); BASOPHILS % (AUTO) 1 % (0-1); EOSINOPHILS % (AUTO) 1 % (1-7); LYMPHOCYTES # (AUTO) 2.68 x10^3/uL (1-3.4); LYMPHOCYTES % (AUTO) 20 % (22-44); MD NO; MEAN CORPUSCULAR HEMOGLOBIN 27.8 pg (27.0-34.8); MEAN CORPUSCULAR HGB CONC 32.1 g/dL (32.4-35.8); MEAN CORPUSCULAR VOLUME 86.7 fL (80-100); MEAN PLATELET VOLUME 8.1 fL (7.4-10.4); MONOCYTES # (AUTO) 1.18 x10^3/uL (0.2-0.8); MONOCYTES % (AUTO) 9 % (2-9); NEUTROPHILS % (AUTO) 70 % (42-75); PLATELET COUNT 274 x10^3/uL (130-400); RED BLOOD COUNT 3.42 x10^6/uL (3.82-5.3); RED CELL DISTRIBUTION WIDTH 17.5 % (9.6-15.2)
[2017-11-13 05:42] LABS: ALANINE AMINOTRANSFERASE 11 U/L (12-78); ALBUMIN 3.1 g/dL (3.4-5.0); ANION GAP 7 mmol/L (5-15); CHLORIDE 96 mmol/L (98-107); CREATININE 5.17 mg/dL (0.55-1.02)
[2017-11-13 05:45] LABS: ALKALINE PHOSPHATASE 91 U/L (45-117); BILIRUBIN,TOTAL 0.4 mg/dL (0.2-1.0); TOTAL PROTEIN 7.2 g/dL (6.4-8.2)
[2017-11-13] MEDS ORDERED: DEXTROSE 50%, 50ML SYRINGE IVPush PRN (06:30)
[2017-11-13] MEDS ORDERED: MAGNESIUM SULFATE PMX 2GM/50ML 50 ML IV ONE (06:30)
[2017-11-13] MEDS ORDERED: GLUCAGON 1 MG IM PRN (06:30)
[2017-11-13] MEDS ORDERED: DEXTROSE 4 GM TAB.CHEW PO PRN (06:30)
[2017-11-13 07:18] VITALS: BP 106/66
[2017-11-13] MEDS: SODIUM CHLORIDE FLUSH 10ML SYR IVF SCH ×2 (08:03→21:10)
[2017-11-13] MEDS: LEVOTHYROXINE 75 MCG TABLET PO SCH (08:03)
[2017-11-13] MEDS: MEXILETINE 150 MG CAPSULE PO SCH ×2 (08:03→21:11)
[2017-11-13] MEDS: POLYETHYLENE GLYCOL 17 GM PACKET PO SCH (08:03)
[2017-11-13] MEDS: OMEPRAZOLE 20 MG CAPSULE.DR PO SCH (08:03)
[2017-11-13] MEDS: ALPRazolam 1MG TABLET PO PRN ×2 (08:03→21:12)
[2017-11-13] MEDS: INSULIN LISPRO 100 UNITS/ML, PEN SQ-INSULIN SCH ×4 (08:56→22:11)
[2017-11-13] MEDS ORDERED: morphine SULFATE 10 MG/ML, 1ML IVPush PRN (09:00)
[2017-11-13] MEDS: INSULIN GLARGINE 100 UNITS/ML, PEN SQ-INSULIN SCH ×2 (10:00→22:11)
[2017-11-13 14:19] VITALS: BP 106/64
[2017-11-13 19:40] VITALS: BP 106/65
[2017-11-13] MEDS: ATENOLOL 25 MG TABLET PO SCH (21:11)
[2017-11-13] MEDS: ZOLPIDEM 10MG TABLET PO SCH (21:11)
[2017-11-13] MEDS: TERAZOSIN 5MG CAPSULE PO SCH (21:11)
[2017-11-14 01:30] VITALS: BP 105/63
[2017-11-14] MEDS: INSULIN LISPRO 100 UNITS/ML, PEN SQ-INSULIN SCH (07:42)
[2017-11-14 08:02] VITALS: BP 107/55
[2017-11-14] MEDS: INSULIN GLARGINE 100 UNITS/ML, PEN SQ-INSULIN SCH ×3 (08:07→21:01)
[2017-11-14] MEDS ORDERED: VANCOMYCIN PER PHARMACY MC PRN (08:30)
[2017-11-14] MEDS: ALPRazolam 1MG TABLET PO PRN (08:53)
[2017-11-14] MEDS: OXYcodone/APAP 5/325MG TABLET PO PRN ×3 (08:53→17:20)
[2017-11-14] MEDS: MEXILETINE 150 MG CAPSULE PO SCH ×2 (08:53→20:57)
[2017-11-14] MEDS: OMEPRAZOLE 20 MG CAPSULE.DR PO SCH (08:53)
[2017-11-14] MEDS: LEVOTHYROXINE 75 MCG TABLET PO SCH (08:54)
[2017-11-14] MEDS: SODIUM CHLORIDE FLUSH 10ML SYR IVF SCH ×2 (08:55→20:58)
[2017-11-14] MEDS: POLYETHYLENE GLYCOL 17 GM PACKET PO SCH (08:55)
[2017-11-14 08:59] LABS: ALBUMIN 2.7 g/dL (3.4-5.0); ANION GAP 7 mmol/L (5-15); CALCIUM 8.2 mg/dL (8.5-10.1); CHLORIDE 96 mmol/L (98-107); CREATININE 3.83 mg/dL (0.55-1.02)
[2017-11-14] MEDS ORDERED: [UNRECOGNIZED DRUG - REMARK] MC SCH (09:00)
[2017-11-14 09:13] LABS: BASOPHILS # (AUTO) 0.04 x10^3/uL (0-0.1); BASOPHILS % (AUTO) 0 % (0-1); EOSINOPHILS # (AUTO) 0.29 x10^3/uL (0-0.4); EOSINOPHILS % (AUTO) 3 % (1-7); LYMPHOCYTES # (AUTO) 2.67 x10^3/uL (1-3.4); LYMPHOCYTES % (AUTO) 25 % (22-44); MD NO; MEAN CORPUSCULAR HEMOGLOBIN 27.8 pg (27.0-34.8); MEAN CORPUSCULAR HGB CONC 32.1 g/dL (32.4-35.8); MEAN CORPUSCULAR VOLUME 86.7 fL (80-100); MEAN PLATELET VOLUME 7.6 fL (7.4-10.4); MONOCYTES # (AUTO) 1.02 x10^3/uL (0.2-0.8); MONOCYTES % (AUTO) 9 % (2-9); NEUTROPHILS # (AUTO) 6.77 x10^3/uL (1.8-6.8); NEUTROPHILS % (AUTO) 63 % (42-75); PLATELET COUNT 274 x10^3/uL (130-400); RED BLOOD COUNT 3.11 x10^6/uL (3.82-5.3); RED CELL DISTRIBUTION WIDTH 17.6 % (9.6-15.2)
[2017-11-14 13:14] VITALS: BP 110/70
[2017-11-14] MEDS: AMPICILLIN/SULBACTAM 3 GM in SODIUM CHLORIDE 0.9% 100 ML IV SCH (16:32)
[2017-11-14 17:41] LABS: ALANINE AMINOTRANSFERASE 10 U/L (12-78); ALBUMIN 2.7 g/dL (3.4-5.0); ANION GAP 9 mmol/L (5-15); CALCIUM 7.7 mg/dL (8.5-10.1); CHLORIDE 96 mmol/L (98-107); CREATININE 4.32 mg/dL (0.55-1.02)
[2017-11-14 17:56] LABS: ALKALINE PHOSPHATASE 99 U/L (45-117); BILIRUBIN,TOTAL 0.3 mg/dL (0.2-1.0); TOTAL PROTEIN 6.8 g/dL (6.4-8.2)
[2017-11-14 19:58] VITALS: BP 113/69
[2017-11-14] MEDS: ZOLPIDEM 10MG TABLET PO SCH (20:57)
[2017-11-14] MEDS: TERAZOSIN 5MG CAPSULE PO SCH (20:57)
[2017-11-14] MEDS: ATENOLOL 25 MG TABLET PO SCH (20:58)
[2017-11-15 03:06] VITALS: BP 103/65
[2017-11-15] MEDS: INSULIN GLARGINE 100 UNITS/ML, PEN SQ-INSULIN SCH ×2 (07:54→21:38)
[2017-11-15] MEDS: POLYETHYLENE GLYCOL 17 GM PACKET PO SCH (08:01)
[2017-11-15] MEDS: MEXILETINE 150 MG CAPSULE PO SCH ×2 (08:19→21:16)
[2017-11-15] MEDS: OMEPRAZOLE 20 MG CAPSULE.DR PO SCH (08:19)
[2017-11-15] MEDS: LEVOTHYROXINE 75 MCG TABLET PO SCH (08:20)
[2017-11-15] MEDS: SODIUM CHLORIDE FLUSH 10ML SYR IVF SCH ×2 (08:22→21:15)
[2017-11-15 08:33] VITALS: BP 107/71
[2017-11-15] MEDS ORDERED: ERGOCALCIFEROL 50,000 UNIT CAPSULE PO SCH (09:00)
[2017-11-15] MEDS ORDERED: LIDOCAINE 2%, 20ML ONE (10:25)
[2017-11-15] MEDS ORDERED: FENTANYL PF 100 MCG/2ML ONE (10:53)
[2017-11-15] MEDS ORDERED: MIDAZOLAM 1 MG/ML, 2ML ONE ×2 (10:54)
[2017-11-15 11:55] VITALS: BP 121/60
[2017-11-15 13:24] LABS: ALBUMIN 2.8 g/dL (3.4-5.0); ANION GAP 7 mmol/L (5-15); CALCIUM 8.5 mg/dL (8.5-10.1); CHLORIDE 98 mmol/L (98-107)
[2017-11-15 18:57] VITALS: BP 106/67
[2017-11-15] MEDS: AMPICILLIN/SULBACTAM 3 GM in SODIUM CHLORIDE 0.9% 100 ML IV SCH (19:25)
[2017-11-15] MEDS: ATENOLOL 25 MG TABLET PO SCH (21:15)
[2017-11-15] MEDS: TERAZOSIN 5MG CAPSULE PO SCH (21:15)
[2017-11-15] MEDS: ALPRazolam 1MG TABLET PO PRN (21:16)
[2017-11-15] MEDS: OXYcodone/APAP 5/325MG TABLET PO PRN (21:16)
[2017-11-15] MEDS: ZOLPIDEM 10MG TABLET PO SCH (21:17)
[2017-11-16 03:16] VITALS: BP 93/58
[2017-11-16] MEDS: MEXILETINE 150 MG CAPSULE PO SCH ×2 (08:37→20:21)
[2017-11-16] MEDS: INSULIN GLARGINE 100 UNITS/ML, PEN SQ-INSULIN SCH ×2 (08:37→17:28)
[2017-11-16] MEDS: OMEPRAZOLE 20 MG CAPSULE.DR PO SCH (08:37)
[2017-11-16] MEDS: LEVOTHYROXINE 75 MCG TABLET PO SCH (08:38)
[2017-11-16] MEDS: POLYETHYLENE GLYCOL 17 GM PACKET PO SCH (08:38)
[2017-11-16] MEDS: SODIUM CHLORIDE FLUSH 10ML SYR IVF SCH ×2 (08:39→20:20)
[2017-11-16 08:58] VITALS: BP 134/74
[2017-11-16 13:06] VITALS: BP 143/78
[2017-11-16] MEDS: OXYcodone/APAP 5/325MG TABLET PO PRN ×2 (15:22→20:39)
[2017-11-16 19:11] VITALS: BP 118/69
[2017-11-16] MEDS: AMPICILLIN/SULBACTAM 3 GM in SODIUM CHLORIDE 0.9% 100 ML IV SCH (19:59)
[2017-11-16] MEDS: ZOLPIDEM 10MG TABLET PO SCH (20:20)
[2017-11-16] MEDS: TERAZOSIN 5MG CAPSULE PO SCH (20:21)
[2017-11-16] MEDS: ATENOLOL 25 MG TABLET PO SCH (20:21)
[2017-11-16] MEDS: ALPRazolam 1MG TABLET PO PRN (20:39)
[2017-11-17 01:20] VITALS: BP 103/55
[2017-11-17 07:17] VITALS: BP 123/71
[2017-11-17] MEDS: INSULIN GLARGINE 100 UNITS/ML, PEN SQ-INSULIN SCH (07:36)
[2017-11-17] MEDS: POLYETHYLENE GLYCOL 17 GM PACKET PO SCH (07:37)
[2017-11-17] MEDS: LEVOTHYROXINE 75 MCG TABLET PO SCH (08:47)
[2017-11-17] MEDS: OMEPRAZOLE 20 MG CAPSULE.DR PO SCH (08:47)
[2017-11-17] MEDS: MEXILETINE 150 MG CAPSULE PO SCH (08:47)
[2017-11-17] MEDS: SODIUM CHLORIDE FLUSH 10ML SYR IVF SCH (08:51)
== END 2017-11-17 09:57 | disposition home or self-care (01) | DRG 638 ==
LOC: OUT 05:32 → ORIP 09:22 → 4NOR 11:20
PROVIDERS: ATTEND Hospitalist
PROC: 0HQLXZZ Repair Left Lower Leg Skin, External Approach (ICD-10-PCS; principal; 2017-11-12 07:30)
PROC: 5A1D70Z Performance of Urinary Filtration, Intermittent, Less than 6 Hours Per Day (ICD-10-PCS; 2017-11-13)
PROC: 5A1D70Z Performance of Urinary Filtration, Intermittent, Less than 6 Hours Per Day (ICD-10-PCS; 2017-11-15)
PROC: 02HV33Z Insertion of Infusion Device into Superior Vena Cava, Percutaneous Approach (ICD-10-PCS; 2017-11-15)
PROC: B5181ZA Fluoroscopy of Superior Vena Cava using Low Osmolar Contrast, Guidance (ICD-10-PCS; 2017-11-15)
PROC: B548ZZA Ultrasonography of Superior Vena Cava, Guidance (ICD-10-PCS; 2017-11-15)
DX: E11.649 Type 2 diabetes mellitus with hypoglycemia without coma (principal); J84.9 Interstitial pulmonary disease, unspecified; M86.9 Osteomyelitis, unspecified; E11.22 Type 2 diabetes mellitus with diabetic chronic kidney disease; E11.319 Type 2 diabetes mellitus with unspecified diabetic retinopathy without macular edema; I13.11 Hypertensive heart and chronic kidney disease without heart failure, with stage 5 chronic kidney disease, or end stage renal disease; E11.69 Type 2 diabetes mellitus with other specified complication; D63.1 Anemia in chronic kidney disease; N18.6 End stage renal disease; E87.5 Hyperkalemia; D86.9 Sarcoidosis, unspecified; E03.9 Hypothyroidism, unspecified; E11.65 Type 2 diabetes mellitus with hyperglycemia; E78.5 Hyperlipidemia, unspecified; I25.10 Atherosclerotic heart disease of native coronary artery without angina pectoris; K21.9 Gastro-esophageal reflux disease without esophagitis; N25.0 Renal osteodystrophy; Z79.4 Long term (current) use of insulin; Z82.49 Family history of ischemic heart disease and other diseases of the circulatory system; Z83.3 Family history of diabetes mellitus; Z89.512 Acquired absence of left leg below knee; Z99.2 Dependence on renal dialysis; F32.9 Major depressive disorder, single episode, unspecified
CPT/HCPCS: 36415; 77001; 80048; 80053; 80069; 82040; 82947; 82962; 83036; 83735; 84100; 85025; 85610; 85651; 85730; 86140; 87070; 87075; 87176; 87186; 87205; 87340; 93005; J0171; J0295; J0690; J1100; J2250; J2405; J2704; J3010; J3490; J1642; J1815; J3475; J7030; J7121

== ENCOUNTER 2017-11-24 16:54 | Emergency (ER) | payer OTHER ==
[~2017-11-24] VITALS: Ht 162.6 cm; Wt 73.5 kg
[2017-11-24 17:05] VITALS: BP 150/76
[2017-11-24 17:47] LABS: BASOPHILS # (AUTO) 0.04 x10^3/uL (0-0.1); BASOPHILS % (AUTO) 0 % (0-1); EOSINOPHILS # (AUTO) 0.32 x10^3/uL (0-0.4); EOSINOPHILS % (AUTO) 3 % (1-7); LYMPHOCYTES # (AUTO) 1.51 x10^3/uL (1-3.4); LYMPHOCYTES % (AUTO) 13 % (22-44); MD NO; MEAN CORPUSCULAR HGB CONC 31.3 g/dL (32.4-35.8); MEAN CORPUSCULAR VOLUME 86.5 fL (80-100); MEAN PLATELET VOLUME 7.9 fL (7.4-10.4); MONOCYTES # (AUTO) 0.86 x10^3/uL (0.2-0.8); MONOCYTES % (AUTO) 8 % (2-9); NEUTROPHILS # (AUTO) 8.71 x10^3/uL (1.8-6.8); NEUTROPHILS % (AUTO) 76 % (42-75); PLATELET COUNT 403 x10^3/uL (130-400); RED BLOOD COUNT 3.41 x10^6/uL (3.82-5.3); RED CELL DISTRIBUTION WIDTH 17.4 % (9.6-15.2)
[2017-11-24 17:57] LABS: ALBUMIN 3.1 g/dL (3.4-5.0); ANION GAP 8 mmol/L (5-15); CALCIUM 8.9 mg/dL (8.5-10.1); CHLORIDE 100 mmol/L (98-107); CREATININE 5.56 mg/dL (0.55-1.02)
[2017-11-24] MEDS ORDERED: BACITRACIN ZINC OINT 500U/GM, 0.9 GM ONE (19:01)
== END 2017-11-24 19:35 | disposition home or self-care (01) ==
LOC: ED 19:17
DX: E11.65 Type 2 diabetes mellitus with hyperglycemia (principal); E11.622 Type 2 diabetes mellitus with other skin ulcer; E03.9 Hypothyroidism, unspecified; I11.0 Hypertensive heart disease with heart failure; I50.9 Heart failure, unspecified; Z89.512 Acquired absence of left leg below knee; Z79.4 Long term (current) use of insulin
CPT/HCPCS: 36415; 80048; 82040; 85025; 99285

== ENCOUNTER → 2017-12-05 | Outpatient (CLI) | payer OTHER ==
[2017-10-21 09:31] VITALS: BP 170/90
== END | disposition home or self-care (01) ==
LOC: WOUND 10:36
PROVIDERS: ATTEND Podiatrist Foot & Ankle Surgery
DX: T81.89XD Other complications of procedures, not elsewhere classified, subsequent encounter (principal); E11.621 Type 2 diabetes mellitus with foot ulcer; L97.411 Non-pressure chronic ulcer of right heel and midfoot limited to breakdown of skin; L89.619 Pressure ulcer of right heel, unspecified stage; E11.69 Type 2 diabetes mellitus with other specified complication; M86.071 Acute hematogenous osteomyelitis, right ankle and foot; M86.062 Acute hematogenous osteomyelitis, left tibia and fibula; M86.631 Other chronic osteomyelitis, right radius and ulna; M86.452 Chronic osteomyelitis with draining sinus, left femur; F41.9 Anxiety disorder, unspecified; I25.10 Atherosclerotic heart disease of native coronary artery without angina pectoris; J44.9 Chronic obstructive pulmonary disease, unspecified; E11.52 Type 2 diabetes mellitus with diabetic peripheral angiopathy with gangrene; I96 Gangrene, not elsewhere classified; E11.22 Type 2 diabetes mellitus with diabetic chronic kidney disease; I13.2 Hypertensive heart and chronic kidney disease with heart failure and with stage 5 chronic kidney disease, or end stage renal disease; N18.6 End stage renal disease; I50.9 Heart failure, unspecified; F32.9 Major depressive disorder, single episode, unspecified; E78.2 Mixed hyperlipidemia; G47.33 Obstructive sleep apnea (adult) (pediatric); I25.2 Old myocardial infarction; E03.8 Other specified hypothyroidism; E11.42 Type 2 diabetes mellitus with diabetic polyneuropathy; E11.319 Type 2 diabetes mellitus with unspecified diabetic retinopathy without macular edema; K21.9 Gastro-esophageal reflux disease without esophagitis; Z86.73 Personal history of transient ischemic attack (TIA), and cerebral infarction without residual deficits; Z89.512 Acquired absence of left leg below knee; Z99.2 Dependence on renal dialysis; Z79.4 Long term (current) use of insulin; Y83.8 Other surgical procedures as the cause of abnormal reaction of the patient, or of later complication, without mention of misadventure at the time of the procedure
CPT/HCPCS: 97597; 97598

== ENCOUNTER → 2017-12-12 | Outpatient (CLI) | payer OTHER ==
[2017-10-21 09:31] VITALS: BP 170/90
== END | disposition home or self-care (01) ==
LOC: WOUND 10:27
PROVIDERS: ATTEND Podiatrist Foot & Ankle Surgery
DX: E11.621 Type 2 diabetes mellitus with foot ulcer (principal); L97.411 Non-pressure chronic ulcer of right heel and midfoot limited to breakdown of skin; E11.69 Type 2 diabetes mellitus with other specified complication; M86.062 Acute hematogenous osteomyelitis, left tibia and fibula; M86.071 Acute hematogenous osteomyelitis, right ankle and foot; M86.631 Other chronic osteomyelitis, right radius and ulna; M86.452 Chronic osteomyelitis with draining sinus, left femur; F41.9 Anxiety disorder, unspecified; I25.10 Atherosclerotic heart disease of native coronary artery without angina pectoris; J44.9 Chronic obstructive pulmonary disease, unspecified; E11.52 Type 2 diabetes mellitus with diabetic peripheral angiopathy with gangrene; I96 Gangrene, not elsewhere classified; K21.9 Gastro-esophageal reflux disease without esophagitis; E11.22 Type 2 diabetes mellitus with diabetic chronic kidney disease; I13.2 Hypertensive heart and chronic kidney disease with heart failure and with stage 5 chronic kidney disease, or end stage renal disease; N18.6 End stage renal disease; I50.9 Heart failure, unspecified; F32.9 Major depressive disorder, single episode, unspecified; E78.2 Mixed hyperlipidemia; G47.33 Obstructive sleep apnea (adult) (pediatric); I25.2 Old myocardial infarction; E11.42 Type 2 diabetes mellitus with diabetic polyneuropathy; E11.319 Type 2 diabetes mellitus with unspecified diabetic retinopathy without macular edema; E03.8 Other specified hypothyroidism; Z99.2 Dependence on renal dialysis; Z86.73 Personal history of transient ischemic attack (TIA), and cerebral infarction without residual deficits; Z89.512 Acquired absence of left leg below knee
CPT/HCPCS: 99212

== ENCOUNTER → 2018-02-24 | Outpatient (CLI) | payer OTHER ==
[~2018-02-24] MED LIST changes: -ASPI-770 PO; +ASPI81TA59 PO
== END | disposition home or self-care (01) ==
LOC: PETCFH 12:35
PROVIDERS: ATTEND Internal Medicine
DX: E87.5 Hyperkalemia (principal)
CPT/HCPCS: 78070; A9500

== ENCOUNTER → 2018-03-25 | Outpatient (CLI) | payer OTHER | END | disposition home or self-care (01) | LOC: CFH 09:32 | PROVIDERS: ATTEND Surgery | DX: E04.1 Nontoxic single thyroid nodule (principal); N25.81 Secondary hyperparathyroidism of renal origin | CPT/HCPCS: 76536 ==

== ENCOUNTER → 2018-04-08 | Outpatient (CLI) | payer OTHER ==
[~2018-04-08] MED LIST changes: +ALBU8.5H8 PO; +ALPR0.254 PO; +CALCIUM CARBONATE PO; +CLON0.1T PO; +DIPH25CA61 PO; +MECL25TA4 PO; +OXYGEN NS; +PANT40TA5 PO; +PREDNISONE PO; +VITAMIN D3 PO; +ZOLP10TA PO
[2018-04-08 10:40] LABS: BASOPHILS # (AUTO) 0.04 x10^3/uL (0-0.1); BASOPHILS % (AUTO) 1 % (0-1); EOSINOPHILS # (AUTO) 0.19 x10^3/uL (0-0.4); EOSINOPHILS % (AUTO) 2 % (1-7); LYMPHOCYTES # (AUTO) 1.96 x10^3/uL (1-3.4); LYMPHOCYTES % (AUTO) 25 % (22-44); MD NO; MEAN CORPUSCULAR HEMOGLOBIN 28.2 pg (27.0-34.8); MEAN CORPUSCULAR HGB CONC 32.5 g/dL (32.4-35.8); MEAN CORPUSCULAR VOLUME 86.8 fL (80-100); MEAN PLATELET VOLUME 8.1 fL (7.4-10.4); MONOCYTES % (AUTO) 8 % (2-9); NEUTROPHILS # (AUTO) 4.95 x10^3/uL (1.8-6.8); NEUTROPHILS % (AUTO) 64 % (42-75); PLATELET COUNT 243 x10^3/uL (130-400); RED BLOOD COUNT 3.91 x10^6/uL (3.82-5.3); RED CELL DISTRIBUTION WIDTH 18.4 % (9.6-15.2)
[2018-04-08 10:49] LABS: INTERNATIONAL NORMALIZED RATIO 0.98 (0.93-1.1); PROTHROMBIN TIME 10.2 Seconds (9.6-11.5)
[2018-04-08 10:52] LABS: ALANINE AMINOTRANSFERASE 22 U/L (12-78); ALBUMIN 3.5 g/dL (3.4-5.0); ANION GAP 8 mmol/L (5-15); CALCIUM 8.3 mg/dL (8.5-10.1); CHLORIDE 95 mmol/L (98-107)
[2018-04-08 10:54] LABS: ALKALINE PHOSPHATASE 180 U/L (45-117); BILIRUBIN,TOTAL 0.5 mg/dL (0.2-1.0)
== END | disposition home or self-care (01) ==
LOC: STAR 09:40
PROVIDERS: ATTEND Surgery
DX: Z01.818 Encounter for other preprocedural examination (principal)
CPT/HCPCS: 36415; 80053; 85025; 85610; 85730; 93005

== ENCOUNTER → 2018-04-14 | Outpatient (CLI) | payer OTHER ==
[~2018-04-14] VITALS: Ht 162.6 cm; Wt 69.4 kg
[~2018-04-14] MED LIST changes: +LACTATED RINGERS 1,000 ML IV SCH; +LIDOCAINE-MPF 1%, 2ML INFIL ONE
== END ==
LOC: OUT 10:46 → CLISVCS 10:46 → OUT 12:00 → EDSTATUS 13:00
PROVIDERS: ATTEND Surgery
DX: N25.81 Secondary hyperparathyroidism of renal origin (principal); Z53.9 Procedure and treatment not carried out, unspecified reason
CPT/HCPCS: 36415

== ENCOUNTER → 2018-07-23 | Outpatient (CLI) | payer OTHER ==
[~2018-07-23] MED LIST changes: +CALC1AMP PO; +CALC1TAB78 PO; -LACTATED RINGERS 1,000 ML IV SCH; -LIDOCAINE-MPF 1%, 2ML INFIL ONE
== END | disposition home or self-care (01) ==
LOC: RAD 14:16
PROVIDERS: ATTEND Internal Medicine
DX: M47.817 Spondylosis without myelopathy or radiculopathy, lumbosacral region (principal); G45.3 Amaurosis fugax; G45.9 Transient cerebral ischemic attack, unspecified; E10.65 Type 1 diabetes mellitus with hyperglycemia; I11.9 Hypertensive heart disease without heart failure; G62.9 Polyneuropathy, unspecified; E78.1 Pure hyperglyceridemia; D35.00 Benign neoplasm of unspecified adrenal gland; E03.9 Hypothyroidism, unspecified; E83.51 Hypocalcemia; K21.9 Gastro-esophageal reflux disease without esophagitis; G47.33 Obstructive sleep apnea (adult) (pediatric); D86.0 Sarcoidosis of lung; E87.5 Hyperkalemia; L03.90 Cellulitis, unspecified; F41.9 Anxiety disorder, unspecified; F32.9 Major depressive disorder, single episode, unspecified; R51 Headache; Z89.512 Acquired absence of left leg below knee
CPT/HCPCS: 72148

== ENCOUNTER 2018-07-25 10:19 | Inpatient (IN) | payer OTHER ==
[~2018-07-25] VITALS: Ht 167.6 cm; Wt 76.8 kg
[2018-07-25 11:23] LABS: BASOPHILS # (AUTO) 0.03 x10^3/uL (0-0.1); BASOPHILS % (AUTO) 0 % (0-1); EOSINOPHILS # (AUTO) 0.16 x10^3/uL (0-0.4); EOSINOPHILS % (AUTO) 2 % (1-7); LYMPHOCYTES # (AUTO) 1.36 x10^3/uL (1-3.4); LYMPHOCYTES % (AUTO) 12 % (22-44); MD NO; MEAN CORPUSCULAR HEMOGLOBIN 31.6 pg (27.0-34.8); MEAN CORPUSCULAR VOLUME 93.1 fL (80-100); MEAN PLATELET VOLUME 9.1 fL (7.4-10.4); MONOCYTES # (AUTO) 0.94 x10^3/uL (0.2-0.8); MONOCYTES % (AUTO) 9 % (2-9); NEUTROPHILS # (AUTO) 8.53 x10^3/uL (1.8-6.8); NEUTROPHILS % (AUTO) 77 % (42-75); PLATELET COUNT 147 x10^3/uL (130-400); RED BLOOD COUNT 2.84 x10^6/uL (3.82-5.3); RED CELL DISTRIBUTION WIDTH 16.8 % (9.6-15.2)
[2018-07-25 11:33] LABS: ALANINE AMINOTRANSFERASE 29 U/L (12-78); ANION GAP 12 mmol/L (5-15); CALCIUM 7.1 mg/dL (8.5-10.1); CHLORIDE 91 mmol/L (98-107); CREATININE 4.82 mg/dL (0.55-1.02)
[2018-07-25 11:35] LABS: ALKALINE PHOSPHATASE 101 U/L (45-117); BILIRUBIN,TOTAL 0.4 mg/dL (0.2-1.0); TOTAL PROTEIN 6.8 g/dL (6.4-8.2)
[2018-07-25] MEDS ORDERED: POTASSIUM CHLORIDE 20 MEQ TAB.ER.PRT ONE (12:57)
[2018-07-25] MEDS ORDERED: INSULIN REGULAR 100 UNITS/ML, 3ML VIAL ONE (12:59)
[2018-07-25] MEDS ORDERED: MAGNESIUM SULFATE PMX 2GM/50ML 50 ML IV ONE (13:00)
[2018-07-25] MEDS ORDERED: INSULIN REGULAR 100 UNITS/ML, 3ML VIAL SQ-INSULIN ONE (13:00)
[2018-07-25] MEDS ORDERED: POTASSIUM CHLORIDE 20 MEQ TAB.ER.PRT PO ONE (13:00)
[2018-07-25] MEDS ORDERED: CALCITRIOL 0.5 MCG CAPSULE PO SCH (13:00)
[2018-07-25] MEDS ORDERED: hydrALAzine 20 MG/ML, 1ML IVPush PRN (13:30)
[2018-07-25] MEDS ORDERED: TEMPLATE NON-FORMULARY MED. (Albuterol Sulfate (Proair Hfa) 2 PUFF(S)) PO PRN (13:30)
[2018-07-25] MEDS ORDERED: ACETAMINOPHEN 325 MG TABLET PO PRN (13:30)
[2018-07-25] MEDS ORDERED: DIPHENHYDRAMINE 25 MG CAPSULE PO SCH (13:30)
[2018-07-25] MEDS ORDERED: HYDROCODONE BIT PO SCH (13:30)
[2018-07-25] MEDS ORDERED: ACETAMINOPHEN PO SCH (13:30)
[2018-07-25] MEDS ORDERED: TEMPLATE NON-FORMULARY MED. (Ondansetron** (Ondansetron Odt**) 4 MG) SL SCH (13:30)
[2018-07-25] MEDS ORDERED: ZOLPIDEM 10MG TABLET PO PRN (13:30)
[2018-07-25] MEDS ORDERED: morphine SULFATE 10 MG/ML, 1ML IVPush PRN (13:30)
[2018-07-25] MEDS ORDERED: [UNRECOGNIZED DRUG - OTHER] PO SCH (13:30)
[2018-07-25] MEDS ORDERED: LEVALBUTEROL TARTRATE INH PRN (13:30)
[2018-07-25] MEDS ORDERED: CARISOPRODOL 350 MG TABLET PO PRN (13:30)
[2018-07-25] MEDS ORDERED: MECLIZINE CHEWABLE 25 MG TAB PO PRN (13:30)
[2018-07-25 14:59] VITALS: BP 169/73
[2018-07-25] MEDS ORDERED: ALBUTEROL SULFATE 2.5 MG/3 ML NPPB PRN (15:30)
[2018-07-25] MEDS ORDERED: GLUCAGON 1 MG IM PRN (17:30)
[2018-07-25] MEDS ORDERED: DEXTROSE 4 GM TAB.CHEW PO PRN (17:30)
[2018-07-25] MEDS ORDERED: DEXTROSE 50%, 50ML SYRINGE IVPush PRN (17:30)
[2018-07-25] MEDS ORDERED: CLON0.1T PO (17:48)
[2018-07-25] MEDS ORDERED: HYDROCODONE BIT PO PRN (18:00)
[2018-07-25] MEDS ORDERED: ACETAMINOPHEN PO PRN (18:00)
[2018-07-25] MEDS ORDERED: ONDANSETRON ODT 4 MG PO PRN (18:00)
[2018-07-25] MEDS ORDERED: [UNRECOGNIZED DRUG - OTHER] PO PRN (18:00)
[2018-07-25 18:16] LABS: ANION GAP 10 mmol/L (5-15); CALCIUM 7.9 mg/dL (8.5-10.1); CHLORIDE 94 mmol/L (98-107); CREATININE 4.95 mg/dL (0.55-1.02)
[2018-07-25 18:49] VITALS: BP 160/82
[2018-07-25] MEDS: INSULIN LISPRO 100 UNITS/ML, PEN SQ-INSULIN SCH (20:13)
[2018-07-25 20:50] VITALS: BP 173/83
[2018-07-25] MEDS: HEPARIN 5,000 UNITS/ML, 1ML SQ SCH (20:55)
[2018-07-25] MEDS: MEXILETINE 150 MG CAPSULE PO SCH (20:56)
[2018-07-25] MEDS: PANTOPROZOLE 40MG TABLET PO SCH (20:56)
[2018-07-25] MEDS: ATENOLOL 50 MG TABLET PO SCH (20:56)
[2018-07-25] MEDS: DULOXETINE 30 MG CAPSULE.DR PO SCH (20:56)
[2018-07-25] MEDS: TERAZOSIN 5MG CAPSULE PO SCH (20:57)
[2018-07-25] MEDS: SODIUM CHLORIDE FLUSH 10ML SYR IVF SCH (20:58)
[2018-07-25] MEDS ORDERED: INSULIN GLARGINE 100 UNITS/ML, PEN SQ-INSULIN SCH (21:00)
[2018-07-25] MEDS: TEMPLATE NON-FORMULARY MED. (Rosuvastatin Calcium** (Crestor**) 10 MG) PO SCH (21:00)
[2018-07-25] MEDS: TEMPLATE NON-FORMULARY MED. (Cyclosporine (Restasis) 1 DROP) TP SCH (21:00)
[2018-07-25] MEDS: CALCIUM/VITAMIN D3 250-125 TABLET PO SCH (21:03)
[2018-07-26 01:32] VITALS: BP 161/80
[2018-07-26] MEDS: HEPARIN 5,000 UNITS/ML, 1ML SQ SCH ×3 (05:32→21:39)
[2018-07-26 05:52] LABS: BASOPHILS # (AUTO) 0.02 x10^3/uL (0-0.1); BASOPHILS % (AUTO) 0 % (0-1); EOSINOPHILS # (AUTO) 0.02 x10^3/uL (0-0.4); EOSINOPHILS % (AUTO) 0 % (1-7); LYMPHOCYTES # (AUTO) 1.26 x10^3/uL (1-3.4); LYMPHOCYTES % (AUTO) 9 % (22-44); MD NO; MEAN CORPUSCULAR HEMOGLOBIN 30.7 pg (27.0-34.8); MEAN CORPUSCULAR HGB CONC 33.3 g/dL (32.4-35.8); MEAN CORPUSCULAR VOLUME 92.3 fL (80-100); MEAN PLATELET VOLUME 8.5 fL (7.4-10.4); MONOCYTES # (AUTO) 1.14 x10^3/uL (0.2-0.8); MONOCYTES % (AUTO) 8 % (2-9); NEUTROPHILS # (AUTO) 11.17 x10^3/uL (1.8-6.8); NEUTROPHILS % (AUTO) 82 % (42-75); PLATELET COUNT 155 x10^3/uL (130-400); RED BLOOD COUNT 3.04 x10^6/uL (3.82-5.3); RED CELL DISTRIBUTION WIDTH 17.2 % (9.6-15.2)
[2018-07-26 05:58] LABS: ALBUMIN 2.9 g/dL (3.4-5.0); ANION GAP 10 mmol/L (5-15); CALCIUM 8.1 mg/dL (8.5-10.1); CHLORIDE 98 mmol/L (98-107); CREATININE 5.29 mg/dL (0.55-1.02)
[2018-07-26] MEDS: INSULIN LISPRO 100 UNITS/ML, PEN SQ-INSULIN SCH ×4 (07:00→21:00)
[2018-07-26] MEDS: TEMPLATE NON-FORMULARY MED. (Cyclosporine (Restasis) 1 DROP) TP SCH ×2 (07:53→21:00)
[2018-07-26] MEDS ORDERED: LEVOTHYROXINE 200 MCG TABLET ONE (07:59)
[2018-07-26] MEDS: SODIUM CHLORIDE FLUSH 10ML SYR IVF SCH ×2 (08:09→21:00)
[2018-07-26] MEDS: LEVOTHYROXINE 100 MCG TABLET PO SCH (08:10)
[2018-07-26] MEDS: POLYETHYLENE GLYCOL 17 GM PACKET PO SCH (08:10)
[2018-07-26] MEDS: ASCORBIC ACID 500 MG TABLET PO SCH (08:11)
[2018-07-26] MEDS: CALCITRIOL 0.5 MCG CAPSULE PO SCH (08:11)
[2018-07-26] MEDS: ATENOLOL 50 MG TABLET PO SCH ×2 (08:11→21:40)
[2018-07-26] MEDS: MEXILETINE 150 MG CAPSULE PO SCH ×2 (08:12→21:54)
[2018-07-26] MEDS: DULOXETINE 30 MG CAPSULE.DR PO SCH ×2 (08:12→21:40)
[2018-07-26] MEDS: CLOPIDOGREL 75 MG TABLET PO SCH (08:12)
[2018-07-26] MEDS: CYANOCOBALAMIN 1,000 MCG TABLET PO SCH (08:12)
[2018-07-26] MEDS: CALCIUM/VITAMIN D3 250-125 TABLET PO SCH ×2 (08:13→21:48)
[2018-07-26 08:30] VITALS: BP 147/63
[2018-07-26] MEDS ORDERED: INSULIN GLARGINE 100 UNITS/ML, PEN SQ-INSULIN SCH ×2 (09:00→21:00)
[2018-07-26] MEDS ORDERED: DARBEPOETIN 60 MCG/ML SQ SCH (10:30)
[2018-07-26 11:36] LABS: ANION GAP 6 mmol/L (5-15); CALCIUM 7.8 mg/dL (8.5-10.1); CHLORIDE 99 mmol/L (98-107); CREATININE 2.05 mg/dL (0.55-1.02)
[2018-07-26 13:05] VITALS: BP 151/72
[2018-07-26 18:56] VITALS: BP 145/63
[2018-07-26] MEDS: TEMPLATE NON-FORMULARY MED. (Rosuvastatin Calcium** (Crestor**) 10 MG) PO SCH (21:00)
[2018-07-26] MEDS: PANTOPROZOLE 40MG TABLET PO SCH (21:41)
[2018-07-26] MEDS: TERAZOSIN 5MG CAPSULE PO SCH (21:41)
[2018-07-26] MEDS: OXYcodone IR 5MG TABLET PO PRN (21:48)
[2018-07-27 01:07] VITALS: BP 149/64
[2018-07-27] MEDS: HEPARIN 5,000 UNITS/ML, 1ML SQ SCH ×3 (05:35→21:03)
[2018-07-27 05:43] LABS: ALBUMIN 2.4 g/dL (3.4-5.0); ANION GAP 7 mmol/L (5-15); CHLORIDE 99 mmol/L (98-107)
[2018-07-27 05:47] LABS: CREATININE 3.41 mg/dL (0.55-1.02); TOTAL IRON BINDING CAPACITY 119 mcg/dL (250-450)
[2018-07-27 05:48] LABS: ALANINE AMINOTRANSFERASE 24 U/L (12-78); ALKALINE PHOSPHATASE 91 U/L (45-117); BILIRUBIN,TOTAL 0.4 mg/dL (0.2-1.0); TOTAL PROTEIN 6.5 g/dL (6.4-8.2)
[2018-07-27 05:51] LABS: % IRON SATURATION 19 % (20-55); IRON LEVEL 23 mcg/dL (50-170)
[2018-07-27 06:08] LABS: MEAN CORPUSCULAR HEMOGLOBIN 30.5 pg (27.0-34.8); MEAN CORPUSCULAR HGB CONC 33.1 g/dL (32.4-35.8); MEAN CORPUSCULAR VOLUME 92.2 fL (80-100); PLATELET COUNT 162 x10^3/uL (130-400); RED CELL DISTRIBUTION WIDTH 17.4 % (9.6-15.2)
[2018-07-27 06:30] VITALS: BP 139/81
[2018-07-27 06:34] LABS: BASOPHILS # (AUTO) 0.04 x10^3/uL (0-0.1); BASOPHILS % (AUTO) 0 % (0-1); EOSINOPHILS # (AUTO) 0.07 x10^3/uL (0-0.4); EOSINOPHILS % (AUTO) 1 % (1-7); LYMPHOCYTES # (AUTO) 1.92 x10^3/uL (1-3.4); LYMPHOCYTES % (AUTO) 16 % (22-44); MD SCAN; MONOCYTES # (AUTO) 1.18 x10^3/uL (0.2-0.8); MONOCYTES % (AUTO) 10 % (2-9); NEUTROPHILS # (AUTO) 8.97 x10^3/uL (1.8-6.8); NEUTROPHILS % (AUTO) 74 % (42-75)
[2018-07-27] MEDS: INSULIN LISPRO 100 UNITS/ML, PEN SQ-INSULIN SCH ×4 (07:00→21:00)
[2018-07-27] MEDS: SODIUM CHLORIDE FLUSH 10ML SYR IVF SCH ×2 (09:00→21:07)
[2018-07-27] MEDS: TEMPLATE NON-FORMULARY MED. (Cyclosporine (Restasis) 1 DROP) TP SCH ×2 (09:00→21:00)
[2018-07-27] MEDS ORDERED: INSULIN GLARGINE 100 UNITS/ML, PEN SQ-INSULIN SCH ×2 (09:00)
[2018-07-27] MEDS: POLYETHYLENE GLYCOL 17 GM PACKET PO SCH (09:00)
[2018-07-27] MEDS: LEVOTHYROXINE 100 MCG TABLET PO SCH (09:00)
[2018-07-27] MEDS ORDERED: LEVOTHYROXINE 200 MCG TABLET ONE (09:31)
[2018-07-27] MEDS: ASCORBIC ACID 500 MG TABLET PO SCH (09:55)
[2018-07-27] MEDS: MEXILETINE 150 MG CAPSULE PO SCH ×2 (09:55→21:02)
[2018-07-27] MEDS: CYANOCOBALAMIN 1,000 MCG TABLET PO SCH (09:57)
[2018-07-27] MEDS: CALCIUM/VITAMIN D3 250-125 TABLET PO SCH ×2 (09:58→21:02)
[2018-07-27] MEDS: CALCITRIOL 0.5 MCG CAPSULE PO SCH (09:58)
[2018-07-27] MEDS: DULOXETINE 30 MG CAPSULE.DR PO SCH ×2 (09:58→21:02)
[2018-07-27] MEDS: CLOPIDOGREL 75 MG TABLET PO SCH (09:58)
[2018-07-27] MEDS: ATENOLOL 50 MG TABLET PO SCH (09:58)
[2018-07-27] MEDS: OXYcodone IR 5MG TABLET PO PRN ×2 (10:51→21:11)
[2018-07-27 12:40] VITALS: BP 139/72
[2018-07-27] MEDS: FERROUS GLUCONATE 324 MG TABLET PO SCH (16:37)
[2018-07-27 19:02] VITALS: BP 134/69
[2018-07-27] MEDS: TEMPLATE NON-FORMULARY MED. (Rosuvastatin Calcium** (Crestor**) 10 MG) PO SCH (21:00)
[2018-07-27] MEDS: PANTOPROZOLE 40MG TABLET PO SCH (21:02)
[2018-07-27] MEDS: TERAZOSIN 5MG CAPSULE PO SCH (21:02)
[2018-07-28 02:44] VITALS: BP 132/66
[2018-07-28] MEDS: HEPARIN 5,000 UNITS/ML, 1ML SQ SCH ×2 (04:48→13:00)
[2018-07-28 06:16] LABS: BASOPHILS # (AUTO) 0.05 x10^3/uL (0-0.1); BASOPHILS % (AUTO) 0 % (0-1); CHLORIDE 99 mmol/L (98-107); EOSINOPHILS # (AUTO) 0.36 x10^3/uL (0-0.4); EOSINOPHILS % (AUTO) 3 % (1-7); LYMPHOCYTES # (AUTO) 1.95 x10^3/uL (1-3.4); LYMPHOCYTES % (AUTO) 17 % (22-44); MD NO; MEAN CORPUSCULAR HEMOGLOBIN 30.8 pg (27.0-34.8); MEAN CORPUSCULAR HGB CONC 32.9 g/dL (32.4-35.8); MEAN CORPUSCULAR VOLUME 93.7 fL (80-100); MEAN PLATELET VOLUME 8.5 fL (7.4-10.4); MONOCYTES # (AUTO) 1.39 x10^3/uL (0.2-0.8); MONOCYTES % (AUTO) 12 % (2-9); NEUTROPHILS % (AUTO) 68 % (42-75); PLATELET COUNT 166 x10^3/uL (130-400); RED BLOOD COUNT 2.68 x10^6/uL (3.82-5.3); RED CELL DISTRIBUTION WIDTH 17.7 % (9.6-15.2)
[2018-07-28 06:23] LABS: ALANINE AMINOTRANSFERASE 27 U/L (12-78); ALBUMIN 2.5 g/dL (3.4-5.0); ALKALINE PHOSPHATASE 101 U/L (45-117); ANION GAP 5 mmol/L (5-15); BILIRUBIN,TOTAL 0.5 mg/dL (0.2-1.0); CALCIUM 7.9 mg/dL (8.5-10.1); CREATININE 4.56 mg/dL (0.55-1.02); TOTAL PROTEIN 6.6 g/dL (6.4-8.2)
[2018-07-28] MEDS: INSULIN LISPRO 100 UNITS/ML, PEN SQ-INSULIN SCH ×2 (07:00→11:31)
[2018-07-28 07:22] VITALS: BP 144/75
[2018-07-28] MEDS: POLYETHYLENE GLYCOL 17 GM PACKET PO SCH (08:53)
[2018-07-28] MEDS: DULOXETINE 30 MG CAPSULE.DR PO SCH (08:54)
[2018-07-28] MEDS: CALCIUM/VITAMIN D3 250-125 TABLET PO SCH (08:54)
[2018-07-28] MEDS: LEVOTHYROXINE 100 MCG TABLET PO SCH (08:54)
[2018-07-28] MEDS: SODIUM CHLORIDE FLUSH 10ML SYR IVF SCH (08:55)
[2018-07-28] MEDS: CLOPIDOGREL 75 MG TABLET PO SCH (08:55)
[2018-07-28] MEDS: ASCORBIC ACID 500 MG TABLET PO SCH (08:55)
[2018-07-28] MEDS: FERROUS GLUCONATE 324 MG TABLET PO SCH (08:56)
[2018-07-28] MEDS: CALCITRIOL 0.5 MCG CAPSULE PO SCH (08:56)
[2018-07-28] MEDS: MEXILETINE 150 MG CAPSULE PO SCH (08:56)
[2018-07-28] MEDS: CYANOCOBALAMIN 1,000 MCG TABLET PO SCH (08:56)
[2018-07-28] MEDS: TEMPLATE NON-FORMULARY MED. (Cyclosporine (Restasis) 1 DROP) TP SCH (09:00)
[2018-07-28] MEDS ORDERED: INSULIN GLARGINE 100 UNITS/ML, PEN SQ-INSULIN SCH ×2 (09:00)
[2018-07-28] MEDS ORDERED: ATENOLOL 50 MG TABLET PO SCH (09:00)
[2018-07-28] MEDS: OXYcodone IR 5MG TABLET PO PRN (09:01)
[2018-07-28] MEDS ORDERED: INSU100V13 SC (10:49)
[2018-07-28] MEDS ORDERED: ATEN50TA41 PO (10:49)
[2018-07-28 13:54] VITALS: BP 123/69
== END 2018-07-28 14:30 | disposition home health service (06) | DRG 637 ==
LOC: ED 11:32 → EDIP 12:34 → 4WST 14:51 → DCLOUNGE 07-28 14:15
PROVIDERS: ADMIT Hospitalist; ATTEND Hospitalist
PROC: 5A1D70Z Performance of Urinary Filtration, Intermittent, Less than 6 Hours Per Day (ICD-10-PCS; principal; 2018-07-26)
DX: E11.65 Type 2 diabetes mellitus with hyperglycemia (principal); N18.6 End stage renal disease; E46 Unspecified protein-calorie malnutrition; I13.2 Hypertensive heart and chronic kidney disease with heart failure and with stage 5 chronic kidney disease, or end stage renal disease; F11.20 Opioid dependence, uncomplicated; F13.20 Sedative, hypnotic or anxiolytic dependence, uncomplicated; K21.9 Gastro-esophageal reflux disease without esophagitis; I50.9 Heart failure, unspecified; E11.22 Type 2 diabetes mellitus with diabetic chronic kidney disease; G47.33 Obstructive sleep apnea (adult) (pediatric); E87.6 Hypokalemia; E83.42 Hypomagnesemia; E83.39 Other disorders of phosphorus metabolism; E11.42 Type 2 diabetes mellitus with diabetic polyneuropathy; N25.0 Renal osteodystrophy; D63.1 Anemia in chronic kidney disease; E78.5 Hyperlipidemia, unspecified; I25.10 Atherosclerotic heart disease of native coronary artery without angina pectoris; F32.9 Major depressive disorder, single episode, unspecified; M51.36 Other intervertebral disc degeneration, lumbar region; E11.51 Type 2 diabetes mellitus with diabetic peripheral angiopathy without gangrene; E03.9 Hypothyroidism, unspecified; D86.9 Sarcoidosis, unspecified; G89.29 Other chronic pain; Z68.27 Body mass index [BMI] 27.0-27.9, adult; Z91.19 Patient's noncompliance with other medical treatment and regimen; Z99.2 Dependence on renal dialysis; Z89.512 Acquired absence of left leg below knee; Z83.3 Family history of diabetes mellitus; Z82.49 Family history of ischemic heart disease and other diseases of the circulatory system; Z86.73 Personal history of transient ischemic attack (TIA), and cerebral infarction without residual deficits; Z79.4 Long term (current) use of insulin; M79.7 Fibromyalgia; Z79.02 Long term (current) use of antithrombotics/antiplatelets; Z79.891 Long term (current) use of opiate analgesic; Z79.899 Other long term (current) drug therapy; Z99.81 Dependence on supplemental oxygen
CPT/HCPCS: 36415; 72146; 74018; 80048; 80053; 80069; 82306; 82728; 82962; 83540; 83550; 83735; 84100; 85025; 86705; 86706; 87340; 93005; 96374; 96375; G0378; J0881; J1644; J1815; J3475

== ENCOUNTER 2018-08-14 19:17 | Inpatient (IN) | payer OTHER ==
[~2018-08-14] VITALS: Ht 167.6 cm; Wt 73.2 kg
[2018-08-14] MEDS ORDERED: SODIUM CHLORIDE FLUSH 10ML SYR IVF ONE (20:00)
[2018-08-14] MEDS ORDERED: SODIUM CHLORIDE 0.9% 1,000ML IVBOLUS ONE (20:00)
[2018-08-14] MEDS ORDERED: NITROGLYCERIN SINGLE TAB 0.4 MG SL PRN (20:30)
[2018-08-14] MEDS ORDERED: ASPIRIN 81 MG TABLET CHEW PO ONE (20:30)
[2018-08-14] MEDS ORDERED: NITROGLYCERIN OINT 2%, 1GM TP ONE ×2 (20:30→20:38)
[2018-08-14] MEDS ORDERED: ASPIRIN 81 MG TABLET CHEW ONE (20:38)
[2018-08-14 20:46] LABS: MEAN CORPUSCULAR HEMOGLOBIN 28.6 pg (27.0-34.8); MEAN CORPUSCULAR HGB CONC 31.6 g/dL (32.4-35.8); MEAN CORPUSCULAR VOLUME 90.4 fL (80-100); MEAN PLATELET VOLUME 7.5 fL (7.4-10.4); PLATELET COUNT 539 x10^3/uL (130-400); RED BLOOD COUNT 3.92 x10^6/uL (3.82-5.3); RED CELL DISTRIBUTION WIDTH 17.9 % (9.6-15.2)
[2018-08-14 20:58] LABS: ALANINE AMINOTRANSFERASE 19 U/L (12-78); ALBUMIN 2.7 g/dL (3.4-5.0); ANION GAP 12 mmol/L (5-15); CALCIUM 7.9 mg/dL (8.5-10.1); CHLORIDE 96 mmol/L (98-107); CREATININE 2.85 mg/dL (0.55-1.02)
[2018-08-14 21:03] LABS: ALKALINE PHOSPHATASE 112 U/L (45-117); BASOPHILS # (AUTO) 0.07 x10^3/uL (0-0.1); BASOPHILS % (AUTO) 0 % (0-1); BILIRUBIN,TOTAL 0.5 mg/dL (0.2-1.0); EOSINOPHILS # (AUTO) 0.01 x10^3/uL (0-0.4); EOSINOPHILS % (AUTO) 0 % (1-7); LYMPHOCYTES # (AUTO) 3.51 x10^3/uL (1-3.4); LYMPHOCYTES % (AUTO) 15 % (22-44); MD SCAN; MONOCYTES # (AUTO) 2.85 x10^3/uL (0.2-0.8); MONOCYTES % (AUTO) 12 % (2-9); NEUTROPHILS # (AUTO) 17.25 x10^3/uL (1.8-6.8); NEUTROPHILS % (AUTO) 73 % (42-75); TOTAL PROTEIN 7.5 g/dL (6.4-8.2)
[2018-08-14] MEDS ORDERED: PIPERACILLIN/TAZO 2.25 GM in SODIUM CHLORIDE 0.9% 50 ML IV ONE (21:30)
[2018-08-14] MEDS ORDERED: SODIUM CHLORIDE 0.9%, 500ML IVBOLUS ONE (21:30)
[2018-08-14] MEDS ORDERED: ZOLPIDEM 10MG TABLET PO PRN (22:00)
[2018-08-14] MEDS ORDERED: CARISOPRODOL 350 MG TABLET PO PRN (22:00)
[2018-08-14] MEDS ORDERED: ALBUTEROL SULFATE 2.5 MG/3 ML HHN PRN (22:00)
[2018-08-14] MEDS ORDERED: VANCOMYCIN PER PHARMACY MC PRN (22:00)
[2018-08-14] MEDS ORDERED: PIPERACILLIN/TAZO/PMX 2.25GM 50 ML IV ONE (22:00)
[2018-08-14] MEDS ORDERED: MECLIZINE CHEWABLE 25 MG TAB PO PRN (22:00)
[2018-08-14] MEDS ORDERED: hydrALAzine 20 MG/ML, 1ML IVPush PRN (22:30)
[2018-08-14] MEDS ORDERED: ONDANSETRON ODT 4 MG PO PRN (22:30)
[2018-08-14] MEDS ORDERED: BISACODYL 10 MG SUPP PR PRN (22:30)
[2018-08-14] MEDS ORDERED: POLYETHYLENE GLYCOL 17 GM PACKET PO PRN (22:30)
[2018-08-14] MEDS ORDERED: GUAIFENESIN/DM 200-20MG, 10ML UDC PO PRN (22:30)
[2018-08-14] MEDS ORDERED: ACETAMINOPHEN 325 MG TABLET PO PRN (22:30)
[2018-08-14 22:33] LABS: HEMOGLOBIN A1C 14.6 % (4.2-6.3)
[2018-08-14 22:40] LABS: RAPID INFLUENZA A Negative (Negative); RAPID INFLUENZA B Negative (Negative)
[2018-08-14 22:49] VITALS: BP 138/64
[2018-08-14] MEDS: TEMPLATE NON-FORMULARY MED. (Rosuvastatin Calcium** (Crestor**) 10 MG) HOMEMEDPO SCH (23:20)
[2018-08-14] MEDS: TEMPLATE NON-FORMULARY MED. (Cyclosporine (Restasis) 1 DROP) TP SCH (23:21)
[2018-08-14] MEDS ORDERED: PHARMACOKINETIC MONITORING MC PRN (23:30)
[2018-08-14] MEDS: TERAZOSIN 5MG CAPSULE PO SCH (23:30)
[2018-08-14] MEDS ORDERED: VANCOMYCIN 1,400 MG in SODIUM CHLORIDE 0.9% 250 ML IV ONE (23:30)
[2018-08-14] MEDS ORDERED: PHARMACOKINETIC CONSULTATION MC ONE (23:30)
[2018-08-14] MEDS: CALCIUM/VITAMIN D3 250-125 TABLET PO SCH (23:31)
[2018-08-14] MEDS: DULOXETINE 30 MG CAPSULE.DR PO SCH (23:31)
[2018-08-14] MEDS: PANTOPROZOLE 40MG TABLET PO SCH (23:32)
[2018-08-14] MEDS: SODIUM CHLORIDE FLUSH 10ML SYR IVF SCH (23:32)
[2018-08-14] MEDS: HEPARIN 5,000 UNITS/ML, 1ML SQ SCH (23:32)
[2018-08-14] MEDS: MEXILETINE 150 MG CAPSULE PO SCH (23:40)
[2018-08-14] MEDS: INSULIN LISPRO 100 UNITS/ML, PEN SQ-INSULIN SCH (23:46)
[2018-08-15] VITALS (7 sets, daily range): BP systolic 80–130; BP diastolic 52–63
[2018-08-15 03:28] LABS: MEAN CORPUSCULAR HEMOGLOBIN 29.8 pg (27.0-34.8); MEAN CORPUSCULAR HGB CONC 32.7 g/dL (32.4-35.8); MEAN CORPUSCULAR VOLUME 91.4 fL (80-100); MEAN PLATELET VOLUME 7.3 fL (7.4-10.4); PLATELET COUNT 443 x10^3/uL (130-400); RED BLOOD COUNT 3.31 x10^6/uL (3.82-5.3); RED CELL DISTRIBUTION WIDTH 18.1 % (9.6-15.2)
[2018-08-15 03:44] LABS: ALANINE AMINOTRANSFERASE 19 U/L (12-78); ALBUMIN 2.5 g/dL (3.4-5.0); ANION GAP 12 mmol/L (5-15); CALCIUM 7.3 mg/dL (8.5-10.1); CHLORIDE 99 mmol/L (98-107); CREATININE 3.33 mg/dL (0.55-1.02)
[2018-08-15 03:46] LABS: ALKALINE PHOSPHATASE 104 U/L (45-117); BILIRUBIN,TOTAL 0.5 mg/dL (0.2-1.0); TOTAL PROTEIN 6.7 g/dL (6.4-8.2)
[2018-08-15 03:52] LABS: TROPONIN I 0.059 ng/mL (0.000-0.045)
[2018-08-15 04:22] LABS: BASOPHILS # (AUTO) 0.07 x10^3/uL (0-0.1); BASOPHILS % (AUTO) 0 % (0-1); EOSINOPHILS # (AUTO) 0.02 x10^3/uL (0-0.4); EOSINOPHILS % (AUTO) 0 % (1-7); LYMPHOCYTES # (AUTO) 3.59 x10^3/uL (1-3.4); LYMPHOCYTES % (AUTO) 21 % (22-44); MD SCAN; MONOCYTES # (AUTO) 1.93 x10^3/uL (0.2-0.8); MONOCYTES % (AUTO) 11 % (2-9); NEUTROPHILS # (AUTO) 11.79 x10^3/uL (1.8-6.8); NEUTROPHILS % (AUTO) 68 % (42-75)
[2018-08-15] MEDS: PIPERACILLIN/TAZO/PMX 3.375GM 50 ML IV SCH ×2 (05:01→11:42)
[2018-08-15] MEDS: SODIUM CHLORIDE FLUSH 10ML SYR IVF SCH ×2 (07:35→20:58)
[2018-08-15] MEDS: TEMPLATE NON-FORMULARY MED. (Cyclosporine (Restasis) 1 DROP) TP SCH ×2 (07:38→21:00)
[2018-08-15] MEDS: INSULIN LISPRO 100 UNITS/ML, PEN SQ-INSULIN SCH ×5 (08:00→21:01)
[2018-08-15 08:34] LABS: TROPONIN I 0.054 ng/mL (0.000-0.045)
[2018-08-15] MEDS: HEPARIN 5,000 UNITS/ML, 1ML SQ SCH ×2 (08:47→17:31)
[2018-08-15] MEDS: SENNA/DOCUSATE TABLET PO SCH (09:00)
[2018-08-15] MEDS: CLOPIDOGREL 75 MG TABLET PO SCH (09:16)
[2018-08-15] MEDS: DULOXETINE 30 MG CAPSULE.DR PO SCH ×2 (09:16→21:00)
[2018-08-15] MEDS: LEVOTHYROXINE 100 MCG TABLET PO SCH (09:16)
[2018-08-15] MEDS: ASCORBIC ACID 500 MG TABLET PO SCH (09:16)
[2018-08-15] MEDS: CYANOCOBALAMIN 1,000 MCG TABLET PO SCH (09:16)
[2018-08-15] MEDS: CALCIUM/VITAMIN D3 250-125 TABLET PO SCH ×2 (09:17→20:59)
[2018-08-15] MEDS: MEXILETINE 150 MG CAPSULE PO SCH ×2 (09:35→21:00)
[2018-08-15] MEDS: INSULIN GLARGINE 100 UNITS/ML, PEN SQ-INSULIN SCH (09:43)
[2018-08-15] MEDS: ATENOLOL 50 MG TABLET PO SCH (09:49)
[2018-08-15] MEDS ORDERED: INSULIN LISPRO 100 UNITS/ML, PEN SQ-INSULIN SCH (11:00)
[2018-08-15] MEDS ORDERED: ALBUTEROL SULFATE 2.5 MG/3 ML NPPB PRN (15:30)
[2018-08-15] MEDS ORDERED: PIPERACILLIN/TAZO(ZOSYN) 2.25 GM in NS 50 ML IVPB SCH (17:00)
[2018-08-15] MEDS: PIPERACILLIN/TAZO(ZOSYN) 2.25 GM in NS 50 ML IVPB SCH ×2 (17:28→23:39)
[2018-08-15] MEDS: PANTOPROZOLE 40MG TABLET PO SCH (20:59)
[2018-08-15] MEDS: TERAZOSIN 5MG CAPSULE PO SCH (20:59)
[2018-08-15] MEDS: TEMPLATE NON-FORMULARY MED. (Rosuvastatin Calcium** (Crestor**) 10 MG) HOMEMEDPO SCH (21:00)
[2018-08-15] MEDS: HYDROcodone/APAP 10/325 MG TABLET PO PRN (21:10)
[2018-08-16] MEDS: HEPARIN 5,000 UNITS/ML, 1ML SQ SCH ×3 (01:30→17:30)
[2018-08-16] MEDS: HYDROcodone/APAP 10/325 MG TABLET PO PRN ×2 (01:33→21:35)
[2018-08-16 01:36] VITALS: BP 91/53
[2018-08-16] MEDS: PIPERACILLIN/TAZO(ZOSYN) 2.25 GM in NS 50 ML IVPB SCH ×3 (05:18→19:54)
[2018-08-16 07:03] VITALS: BP 96/58
[2018-08-16] MEDS: INSULIN LISPRO 100 UNITS/ML, PEN SQ-INSULIN SCH ×3 (07:50→21:32)
[2018-08-16] MEDS: INSULIN GLARGINE 100 UNITS/ML, PEN SQ-INSULIN SCH (07:51)
[2018-08-16] MEDS: SENNA/DOCUSATE TABLET PO SCH (09:00)
[2018-08-16] MEDS: MEXILETINE 150 MG CAPSULE PO SCH ×2 (09:00→21:31)
[2018-08-16] MEDS: CYANOCOBALAMIN 1,000 MCG TABLET PO SCH (09:00)
[2018-08-16] MEDS: CLOPIDOGREL 75 MG TABLET PO SCH (09:00)
[2018-08-16] MEDS: SODIUM CHLORIDE FLUSH 10ML SYR IVF SCH ×2 (09:00→21:33)
[2018-08-16] MEDS: TEMPLATE NON-FORMULARY MED. (Cyclosporine (Restasis) 1 DROP) TP SCH ×2 (09:00→21:33)
[2018-08-16] MEDS: CALCIUM/VITAMIN D3 250-125 TABLET PO SCH ×2 (09:00→21:31)
[2018-08-16] MEDS: LEVOTHYROXINE 100 MCG TABLET PO SCH (09:00)
[2018-08-16] MEDS: ASCORBIC ACID 500 MG TABLET PO SCH (09:00)
[2018-08-16] MEDS: ATENOLOL 50 MG TABLET PO SCH (09:00)
[2018-08-16] MEDS: DULOXETINE 30 MG CAPSULE.DR PO SCH ×2 (09:00→21:31)
[2018-08-16 11:38] LABS: MEAN CORPUSCULAR HEMOGLOBIN 30.1 pg (27.0-34.8); MEAN CORPUSCULAR HGB CONC 33.1 g/dL (32.4-35.8); MEAN CORPUSCULAR VOLUME 91.1 fL (80-100); PLATELET COUNT 335 x10^3/uL (130-400); RED BLOOD COUNT 2.67 x10^6/uL (3.82-5.3); RED CELL DISTRIBUTION WIDTH 17.6 % (9.6-15.2)
[2018-08-16 11:47] LABS: ANION GAP 11 mmol/L (5-15); CALCIUM 7.4 mg/dL (8.5-10.1); CHLORIDE 99 mmol/L (98-107); CREATININE 2.07 mg/dL (0.55-1.02)
[2018-08-16 12:00] LABS: BASOPHILS # (AUTO) 0.04 x10^3/uL (0-0.1); BASOPHILS % (AUTO) 0 % (0-1); EOSINOPHILS # (AUTO) 0.18 x10^3/uL (0-0.4); EOSINOPHILS % (AUTO) 2 % (1-7); LYMPHOCYTES # (AUTO) 1.72 x10^3/uL (1-3.4); LYMPHOCYTES % (AUTO) 15 % (22-44); MD SCAN; MONOCYTES # (AUTO) 1.37 x10^3/uL (0.2-0.8); MONOCYTES % (AUTO) 12 % (2-9); NEUTROPHILS # (AUTO) 8.29 x10^3/uL (1.8-6.8); NEUTROPHILS % (AUTO) 71 % (42-75)
[2018-08-16] MEDS ORDERED: ALBUMIN HUMAN 25% 100 ML IV ONE (12:30)
[2018-08-16 13:25] VITALS: BP 112/66
[2018-08-16 20:59] VITALS: BP 132/73
[2018-08-16] MEDS: PANTOPROZOLE 40MG TABLET PO SCH (21:31)
[2018-08-16] MEDS: TERAZOSIN 5MG CAPSULE PO SCH (21:31)
[2018-08-16] MEDS: TEMPLATE NON-FORMULARY MED. (Rosuvastatin Calcium** (Crestor**) 10 MG) HOMEMEDPO SCH (21:33)
[2018-08-17 02:31] VITALS: BP 117/72
[2018-08-17] MEDS: PIPERACILLIN/TAZO(ZOSYN) 2.25 GM in NS 50 ML IVPB SCH ×4 (02:31→21:53)
[2018-08-17] MEDS: HEPARIN 5,000 UNITS/ML, 1ML SQ SCH ×3 (02:31→16:58)
[2018-08-17 07:55] VITALS: BP 130/77
[2018-08-17] MEDS: ATENOLOL 50 MG TABLET PO SCH (08:42)
[2018-08-17] MEDS: CLOPIDOGREL 75 MG TABLET PO SCH (08:43)
[2018-08-17] MEDS: CYANOCOBALAMIN 1,000 MCG TABLET PO SCH (08:43)
[2018-08-17] MEDS: CALCIUM/VITAMIN D3 250-125 TABLET PO SCH ×2 (08:43→21:51)
[2018-08-17] MEDS: ASCORBIC ACID 500 MG TABLET PO SCH (08:43)
[2018-08-17] MEDS: MEXILETINE 150 MG CAPSULE PO SCH ×2 (08:44→21:52)
[2018-08-17] MEDS: LEVOTHYROXINE 100 MCG TABLET PO SCH (08:44)
[2018-08-17] MEDS: DULOXETINE 30 MG CAPSULE.DR PO SCH ×2 (08:44→21:52)
[2018-08-17] MEDS: INSULIN LISPRO 100 UNITS/ML, PEN SQ-INSULIN SCH ×4 (08:45→21:56)
[2018-08-17] MEDS: TEMPLATE NON-FORMULARY MED. (Cyclosporine (Restasis) 1 DROP) TP SCH ×2 (09:00→21:00)
[2018-08-17] MEDS: SENNA/DOCUSATE TABLET PO SCH (09:00)
[2018-08-17] MEDS: SODIUM CHLORIDE FLUSH 10ML SYR IVF SCH ×2 (10:10→21:00)
[2018-08-17] MEDS: INSULIN GLARGINE 100 UNITS/ML, PEN SQ-INSULIN SCH (10:10)
[2018-08-17 10:56] LABS: ANION GAP 10 mmol/L (5-15); CALCIUM 7.7 mg/dL (8.5-10.1); CHLORIDE 98 mmol/L (98-107); CREATININE 3.44 mg/dL (0.55-1.02)
[2018-08-17 10:59] LABS: MEAN CORPUSCULAR HGB CONC 31.9 g/dL (32.4-35.8); MEAN CORPUSCULAR VOLUME 91.1 fL (80-100); MEAN PLATELET VOLUME 7.9 fL (7.4-10.4); PLATELET COUNT 364 x10^3/uL (130-400); RED BLOOD COUNT 3.31 x10^6/uL (3.82-5.3); RED CELL DISTRIBUTION WIDTH 17.8 % (9.6-15.2)
[2018-08-17] MEDS ORDERED: VANCOMYCIN 1,400 MG in SODIUM CHLORIDE 0.9% 250 ML IV SCH (11:00)
[2018-08-17] MEDS ORDERED: VANCOMYCIN 1,400 MG in SODIUM CHLORIDE 0.9% 250 ML IV ONE (11:00)
[2018-08-17 11:06] LABS: BASOPHILS # (AUTO) 0.06 x10^3/uL (0-0.1); BASOPHILS % (AUTO) 1 % (0-1); EOSINOPHILS # (AUTO) 0.24 x10^3/uL (0-0.4); EOSINOPHILS % (AUTO) 2 % (1-7); LYMPHOCYTES # (AUTO) 1.33 x10^3/uL (1-3.4); LYMPHOCYTES % (AUTO) 11 % (22-44); MD SCAN; MONOCYTES # (AUTO) 1.14 x10^3/uL (0.2-0.8); MONOCYTES % (AUTO) 9 % (2-9); NEUTROPHILS # (AUTO) 9.53 x10^3/uL (1.8-6.8); NEUTROPHILS % (AUTO) 78 % (42-75)
[2018-08-17 15:54] VITALS: BP 94/56
[2018-08-17 20:15] VITALS: BP 118/73
[2018-08-17] MEDS: TEMPLATE NON-FORMULARY MED. (Rosuvastatin Calcium** (Crestor**) 10 MG) HOMEMEDPO SCH (21:00)
[2018-08-17] MEDS: PANTOPROZOLE 40MG TABLET PO SCH (21:51)
[2018-08-17] MEDS: TERAZOSIN 5MG CAPSULE PO SCH (21:52)
[2018-08-17] MEDS: HYDROcodone/APAP 10/325 MG TABLET PO PRN (22:18)
[2018-08-18 01:00] VITALS: BP 121/70
[2018-08-18] MEDS: HEPARIN 5,000 UNITS/ML, 1ML SQ SCH ×2 (02:30→11:22)
[2018-08-18] MEDS: PIPERACILLIN/TAZO(ZOSYN) 2.25 GM in NS 50 ML IVPB SCH ×2 (04:31→11:21)
[2018-08-18] MEDS: INSULIN LISPRO 100 UNITS/ML, PEN SQ-INSULIN SCH ×2 (07:00→11:00)
[2018-08-18 07:33] VITALS: BP 125/79
[2018-08-18 08:04] LABS: MEAN CORPUSCULAR HEMOGLOBIN 29.4 pg (27.0-34.8); MEAN CORPUSCULAR HGB CONC 32.1 g/dL (32.4-35.8); MEAN CORPUSCULAR VOLUME 91.5 fL (80-100); MEAN PLATELET VOLUME 7.1 fL (7.4-10.4); PLATELET COUNT 335 x10^3/uL (130-400); RED BLOOD COUNT 3.18 x10^6/uL (3.82-5.3); RED CELL DISTRIBUTION WIDTH 18.7 % (9.6-15.2)
[2018-08-18 08:16] LABS: ANION GAP 11 mmol/L (5-15); CALCIUM 7.5 mg/dL (8.5-10.1); CHLORIDE 101 mmol/L (98-107); CREATININE 4.58 mg/dL (0.55-1.02)
[2018-08-18] MEDS: SENNA/DOCUSATE TABLET PO SCH (09:00)
[2018-08-18] MEDS: TEMPLATE NON-FORMULARY MED. (Cyclosporine (Restasis) 1 DROP) TP SCH (09:00)
[2018-08-18 09:10] LABS: BASOPHILS # (AUTO) 0.07 x10^3/uL (0-0.1); BASOPHILS % (AUTO) 1 % (0-1); EOSINOPHILS # (AUTO) 0.22 x10^3/uL (0-0.4); EOSINOPHILS % (AUTO) 2 % (1-7); LYMPHOCYTES # (AUTO) 1.98 x10^3/uL (1-3.4); LYMPHOCYTES % (AUTO) 16 % (22-44); MD SCAN; MONOCYTES # (AUTO) 1.44 x10^3/uL (0.2-0.8); MONOCYTES % (AUTO) 12 % (2-9); NEUTROPHILS # (AUTO) 8.84 x10^3/uL (1.8-6.8); NEUTROPHILS % (AUTO) 71 % (42-75)
[2018-08-18] MEDS ORDERED: DARBEPOETIN 60 MCG/ML SQ SCH (10:00)
[2018-08-18] MEDS: ASCORBIC ACID 500 MG TABLET PO SCH (11:11)
[2018-08-18] MEDS: CALCIUM/VITAMIN D3 250-125 TABLET PO SCH (11:11)
[2018-08-18] MEDS: CYANOCOBALAMIN 1,000 MCG TABLET PO SCH (11:13)
[2018-08-18] MEDS: CLOPIDOGREL 75 MG TABLET PO SCH (11:14)
[2018-08-18] MEDS: DULOXETINE 30 MG CAPSULE.DR PO SCH (11:15)
[2018-08-18] MEDS: MEXILETINE 150 MG CAPSULE PO SCH (11:17)
[2018-08-18] MEDS: LEVOTHYROXINE 100 MCG TABLET PO SCH (11:18)
[2018-08-18] MEDS: INSULIN GLARGINE 100 UNITS/ML, PEN SQ-INSULIN SCH (11:20)
[2018-08-18] MEDS: SODIUM CHLORIDE FLUSH 10ML SYR IVF SCH (11:31)
[2018-08-18 12:30] VITALS: BP 127/79
[2018-08-18] MEDS ORDERED: CARV3.1212 PO (12:31)
[2018-08-18] MEDS ORDERED: CARVEDILOL 3.125 MG TABLET PO SCH (18:00)
== END 2018-08-18 14:32 | disposition home or self-care (01) | DRG 871 ==
LOC: ED 20:51 → EDIP 21:34 → 5SO 22:51 → 4WST 08-17 17:31
PROVIDERS: ADMIT Internal Medicine; ATTEND Internal Medicine
PROC: 5A1D70Z Performance of Urinary Filtration, Intermittent, Less than 6 Hours Per Day (ICD-10-PCS; principal; 2018-08-16)
DX: A41.9 Sepsis, unspecified organism (principal); J18.0 Bronchopneumonia, unspecified organism; N18.6 End stage renal disease; E44.0 Moderate protein-calorie malnutrition; I13.2 Hypertensive heart and chronic kidney disease with heart failure and with stage 5 chronic kidney disease, or end stage renal disease; D63.1 Anemia in chronic kidney disease; D86.9 Sarcoidosis, unspecified; E11.22 Type 2 diabetes mellitus with diabetic chronic kidney disease; E03.9 Hypothyroidism, unspecified; E11.42 Type 2 diabetes mellitus with diabetic polyneuropathy; E11.51 Type 2 diabetes mellitus with diabetic peripheral angiopathy without gangrene; E78.5 Hyperlipidemia, unspecified; E87.6 Hypokalemia; F32.9 Major depressive disorder, single episode, unspecified; G89.29 Other chronic pain; I25.10 Atherosclerotic heart disease of native coronary artery without angina pectoris; Z68.26 Body mass index [BMI] 26.0-26.9, adult; I50.9 Heart failure, unspecified; K21.9 Gastro-esophageal reflux disease without esophagitis; M79.7 Fibromyalgia; N25.0 Renal osteodystrophy; Z79.4 Long term (current) use of insulin; Z82.49 Family history of ischemic heart disease and other diseases of the circulatory system; Z86.73 Personal history of transient ischemic attack (TIA), and cerebral infarction without residual deficits; Z83.3 Family history of diabetes mellitus; Z89.512 Acquired absence of left leg below knee; Z99.2 Dependence on renal dialysis; Z91.041 Radiographic dye allergy status; Z88.8 Allergy status to other drugs, medicaments and biological substances
CPT/HCPCS: 36415; 71045; 71250; 80048; 80053; 80202; 82962; 83036; 83605; 83880; 84484; 85025; 87040; 87400; 93005; 93306; 94640; 96374; 99291; G0378; J0881; J1644; J2543; J3370; J1815; J7030; J7040; J7050

== ENCOUNTER 2018-11-03 19:40 | Inpatient (IN) | payer OTHER ==
[~2018-11-03] VITALS: Ht 167.6 cm; Wt 70.6 kg
[~2018-11-03 19:40] MED LIST changes: +CARV3.1212 PO; -CLON0.1T PO; +CLON0.1T22 PO
--- NOTE | 2018-11-03 20:01 | NUR ---
Assumed care of patient. C/O N/V/D x 2 days. Will continue to monitor.
--- NOTE | 2018-11-03 20:08 | NUR ---
Patient anuric and on dialysis. Unable to collect UA.
[2018-11-03 20:20] LABS: BASOPHILS # (AUTO) 0.19 x10^3/uL (0-0.1); BASOPHILS % (AUTO) 2 % (0-1); EOSINOPHILS # (AUTO) 0.32 x10^3/uL (0-0.4); EOSINOPHILS % (AUTO) 3 % (1-7); LYMPHOCYTES # (AUTO) 2.11 x10^3/uL (1-3.4); LYMPHOCYTES % (AUTO) 21 % (22-44); MD NO; MEAN CORPUSCULAR HEMOGLOBIN 28.6 pg (27.0-34.8); MEAN CORPUSCULAR HGB CONC 33.1 g/dL (32.4-35.8); MEAN CORPUSCULAR VOLUME 86.3 fL (80-100); MEAN PLATELET VOLUME 8.3 fL (7.4-10.4); MONOCYTES # (AUTO) 0.74 x10^3/uL (0.2-0.8); MONOCYTES % (AUTO) 7 % (2-9); NEUTROPHILS # (AUTO) 6.82 x10^3/uL (1.8-6.8); NEUTROPHILS % (AUTO) 67 % (42-75); PLATELET COUNT 257 x10^3/uL (130-400); RED BLOOD COUNT 4.11 x10^6/uL (3.82-5.3); RED CELL DISTRIBUTION WIDTH 18.2 % (9.6-15.2)
[2018-11-03] MEDS ORDERED: SODIUM CHLORIDE 0.9% 1,000ML IVBOLUS ONE (20:30)
[2018-11-03] MEDS ORDERED: ONDANSETRON 2MG/ML, 2ML IVPush ONE (20:30)
[2018-11-03] MEDS ORDERED: MAALOX/HYOSCYAMINE/LIDOCAINE 45 ML BTL PO ONE (20:30)
[2018-11-03] MEDS ORDERED: LOPERAMIDE 2 MG CAPSULE PO ONE (20:30)
[2018-11-03] MEDS ORDERED: LABETALOL 5MG/ML, 20ML IVPush ONE (20:30)
[2018-11-03] MEDS ORDERED: SODIUM CHLORIDE FLUSH 10ML SYR IVF ONE (20:30)
[2018-11-03 20:31] LABS: ALANINE AMINOTRANSFERASE 18 U/L (12-78); ALBUMIN 3.5 g/dL (3.4-5.0); ANION GAP 10 mmol/L (5-15); CALCIUM 8.6 mg/dL (8.5-10.1); CHLORIDE 97 mmol/L (98-107); CREATININE 7.64 mg/dL (0.55-1.02)
[2018-11-03] MEDS ORDERED: MAALOX/HYOSCYAMINE/LIDOCAINE 45 ML BTL ONE (20:31)
[2018-11-03] MEDS ORDERED: LOPERAMIDE 2 MG CAPSULE ONE (20:31)
[2018-11-03] MEDS ORDERED: ONDANSETRON 2MG/ML, 2ML ONE (20:31)
[2018-11-03 20:33] LABS: ALKALINE PHOSPHATASE 100 U/L (45-117); BILIRUBIN,TOTAL 0.7 mg/dL (0.2-1.0); TOTAL PROTEIN 8.2 g/dL (6.4-8.2)
--- NOTE | 2018-11-03 20:55 | NUR ---
Delay in care d/t patient being difficult stick.
--- NOTE | 2018-11-03 21:17 | NUR ---
IV started. Remians hypertensive. Labetolol admin.
[2018-11-03] MEDS ORDERED: DEXTROSE 50%, 50ML SYRINGE ONE (21:22)
[2018-11-03] MEDS ORDERED: SODIUM BICARBONATE 1 MEQ/ML, 50ML VIAL ONE (21:22)
[2018-11-03] MEDS ORDERED: CALCIUM CHLORIDE 10%, 10ML SYR ONE (21:22)
[2018-11-03] MEDS ORDERED: INSULIN REGULAR 100 UNITS/ML, 3ML VIAL ONE (21:24)
[2018-11-03] MEDS ORDERED: INSULIN REGULAR 100 UNITS/ML, 3ML VIAL IVPush ONE (21:30)
[2018-11-03] MEDS ORDERED: CALCIUM CHLORIDE 10%, 10ML SYR IVPush ONE (21:30)
[2018-11-03] MEDS ORDERED: SODIUM BICARB 8.4%, 50ML SYRINGE IVPush ONE (21:30)
[2018-11-03] MEDS ORDERED: DEXTROSE 50%, 50ML SYRINGE IVPush ONE (21:30)
--- NOTE | 2018-11-03 21:52 | NUR ---
Patient remains hyptertensive despite labetolol. Dialysis nurse to take patient in about 20 min.
--- NOTE | 2018-11-03 22:18 | NUR ---
REPORT TO BIJAL DESIR FOR ROOM 407
[2018-11-03] MEDS ORDERED: CARISOPRODOL 350 MG TABLET PO PRN (22:30)
[2018-11-03] MEDS ORDERED: ACETAMINOPHEN 325 MG TABLET PO PRN (22:30)
[2018-11-03] MEDS ORDERED: ZOLPIDEM 10MG TABLET PO PRN (22:30)
[2018-11-03] MEDS ORDERED: TEMPLATE NON-FORMULARY MED. (Albuterol Sulfate (Proair Hfa) 2 PUFF(S)) PO PRN (22:30)
[2018-11-03] MEDS ORDERED: MAGNESIUM SULFATE 1 GM in SODIUM CHLORIDE 0.9% 50 ML IV ONE (22:30)
[2018-11-03] MEDS ORDERED: ONDANSETRON ODT 4 MG PO PRN (22:30)
[2018-11-03] MEDS ORDERED: LABETALOL 5MG/ML, 20ML IVPush PRN (22:30)
[2018-11-03] MEDS ORDERED: MECLIZINE CHEWABLE 25 MG TAB PO PRN (23:30)
[2018-11-03] MEDS ORDERED: ALBUTEROL SULFATE 2.5 MG/3 ML NPPB PRN (23:30)
[2018-11-04] MEDS: HEPARIN 5,000 UNITS/ML, 1ML SQ SCH ×3 (01:43→16:49)
[2018-11-04] MEDS: HYDROcodone/APAP 10/325 MG TABLET PO PRN ×3 (01:43→22:51)
[2018-11-04 02:14] LABS: BASOPHILS # (AUTO) 0.11 x10^3/uL (0-0.1); BASOPHILS % (AUTO) 1 % (0-1); EOSINOPHILS # (AUTO) 0.26 x10^3/uL (0-0.4); EOSINOPHILS % (AUTO) 2 % (1-7); LYMPHOCYTES # (AUTO) 2.39 x10^3/uL (1-3.4); LYMPHOCYTES % (AUTO) 23 % (22-44); MD NO; MEAN CORPUSCULAR HEMOGLOBIN 28.4 pg (27.0-34.8); MEAN CORPUSCULAR HGB CONC 32.9 g/dL (32.4-35.8); MEAN CORPUSCULAR VOLUME 86.3 fL (80-100); MEAN PLATELET VOLUME 7.9 fL (7.4-10.4); MONOCYTES # (AUTO) 0.84 x10^3/uL (0.2-0.8); MONOCYTES % (AUTO) 8 % (2-9); NEUTROPHILS # (AUTO) 7.02 x10^3/uL (1.8-6.8); NEUTROPHILS % (AUTO) 66 % (42-75); PLATELET COUNT 268 x10^3/uL (130-400); RED BLOOD COUNT 4.25 x10^6/uL (3.82-5.3); RED CELL DISTRIBUTION WIDTH 17.9 % (9.6-15.2)
[2018-11-04 02:34] LABS: ANION GAP 13 mmol/L (5-15); CALCIUM 8.5 mg/dL (8.5-10.1); CHLORIDE 95 mmol/L (98-107)
[2018-11-04 03:08] VITALS: BP 130/73
[2018-11-04 05:58] VITALS: BP 148/74
[2018-11-04] MEDS: LEVOTHYROXINE 100 MCG TABLET PO SCH (05:59)
[2018-11-04] MEDS: CARVEDILOL 3.125 MG TABLET PO SCH ×2 (05:59→16:51)
[2018-11-04] MEDS: INSULIN LISPRO 100 UNITS/ML, PEN SQ-INSULIN SCH ×4 (07:00→22:39)
[2018-11-04 07:32] VITALS: BP 142/79
[2018-11-04] MEDS: ASCORBIC ACID 500 MG TABLET PO SCH (09:02)
[2018-11-04] MEDS: CALCIUM/VITAMIN D3 250-125 TABLET PO SCH ×2 (09:02→22:36)
[2018-11-04] MEDS: CLOPIDOGREL 75 MG TABLET PO SCH (09:03)
[2018-11-04] MEDS: MEXILETINE 150 MG CAPSULE PO SCH ×2 (09:03→22:37)
[2018-11-04] MEDS: DULOXETINE 30 MG CAPSULE.DR PO SCH ×2 (09:03→22:38)
[2018-11-04] MEDS: LACTOBACILLUS 1GM/ PACKET PO SCH ×3 (09:04→22:37)
[2018-11-04] MEDS: CYANOCOBALAMIN 1,000 MCG TABLET PO SCH (09:05)
[2018-11-04] MEDS: INSULIN GLARGINE 100 UNITS/ML, PEN SQ-INSULIN SCH (12:39)
[2018-11-04 13:44] VITALS: BP 139/82
[2018-11-04 20:18] VITALS: BP 119/69
[2018-11-04] MEDS: ATORVASTATIN 20 MG TABLET PO SCH (21:00)
[2018-11-04] MEDS: PANTOPROZOLE 40MG TABLET PO SCH (22:36)
[2018-11-04] MEDS: TERAZOSIN 5MG CAPSULE PO SCH (22:37)
[2018-11-05] MEDS: HEPARIN 5,000 UNITS/ML, 1ML SQ SCH ×3 (02:08→17:48)
[2018-11-05 02:11] VITALS: BP 91/57
[2018-11-05 05:27] VITALS: BP 92/58
[2018-11-05] MEDS: LEVOTHYROXINE 100 MCG TABLET PO SCH (05:28)
[2018-11-05] MEDS: CARVEDILOL 3.125 MG TABLET PO SCH ×2 (05:29→16:05)
[2018-11-05 05:55] LABS: BASOPHILS # (AUTO) 0.09 x10^3/uL (0-0.1); BASOPHILS % (AUTO) 1 % (0-1); EOSINOPHILS # (AUTO) 0.23 x10^3/uL (0-0.4); EOSINOPHILS % (AUTO) 3 % (1-7); LYMPHOCYTES # (AUTO) 2.97 x10^3/uL (1-3.4); LYMPHOCYTES % (AUTO) 35 % (22-44); MD NO; MEAN CORPUSCULAR HEMOGLOBIN 28.1 pg (27.0-34.8); MEAN CORPUSCULAR HGB CONC 32.4 g/dL (32.4-35.8); MEAN CORPUSCULAR VOLUME 86.6 fL (80-100); MEAN PLATELET VOLUME 8.3 fL (7.4-10.4); MONOCYTES # (AUTO) 0.95 x10^3/uL (0.2-0.8); MONOCYTES % (AUTO) 11 % (2-9); NEUTROPHILS # (AUTO) 4.27 x10^3/uL (1.8-6.8); NEUTROPHILS % (AUTO) 50 % (42-75); PLATELET COUNT 231 x10^3/uL (130-400); RED BLOOD COUNT 4.17 x10^6/uL (3.82-5.3); RED CELL DISTRIBUTION WIDTH 17.8 % (9.6-15.2)
[2018-11-05 06:02] LABS: ANION GAP 10 mmol/L (5-15); CALCIUM 8.3 mg/dL (8.5-10.1); CHLORIDE 92 mmol/L (98-107); CREATININE 4.21 mg/dL (0.55-1.02)
[2018-11-05 07:10] VITALS: BP 95/58
[2018-11-05] MEDS: INSULIN LISPRO 100 UNITS/ML, PEN SQ-INSULIN SCH ×4 (08:22→20:42)
[2018-11-05] MEDS: INSULIN GLARGINE 100 UNITS/ML, PEN SQ-INSULIN SCH (08:22)
[2018-11-05] MEDS: LACTOBACILLUS 1GM/ PACKET PO SCH ×3 (08:23→20:40)
[2018-11-05] MEDS: ASCORBIC ACID 500 MG TABLET PO SCH (08:24)
[2018-11-05] MEDS: CYANOCOBALAMIN 1,000 MCG TABLET PO SCH (08:24)
[2018-11-05] MEDS: CLOPIDOGREL 75 MG TABLET PO SCH (08:24)
[2018-11-05] MEDS: CALCIUM/VITAMIN D3 250-125 TABLET PO SCH ×2 (08:24→20:41)
[2018-11-05] MEDS: DULOXETINE 30 MG CAPSULE.DR PO SCH ×2 (08:24→20:41)
[2018-11-05] MEDS: MEXILETINE 150 MG CAPSULE PO SCH ×2 (08:24→20:40)
[2018-11-05 14:14] VITALS: BP 116/74
[2018-11-05 19:26] VITALS: BP 117/73
[2018-11-05] MEDS: ATORVASTATIN 20 MG TABLET PO SCH (19:41)
[2018-11-05 19:44] LABS: CLOSTRIDIUM DIFFICILE ANTIGEN NEGATIVE; CLOSTRIDIUM DIFFICILE TOXIN NEGATIVE (Negative)
[2018-11-05] MEDS: PANTOPROZOLE 40MG TABLET PO SCH (20:40)
[2018-11-05] MEDS: TERAZOSIN 5MG CAPSULE PO SCH (20:41)
[2018-11-05] MEDS: HYDROcodone/APAP 10/325 MG TABLET PO PRN (23:45)
[2018-11-06] MEDS: HEPARIN 5,000 UNITS/ML, 1ML SQ SCH ×2 (02:17→10:27)
[2018-11-06 02:21] VITALS: BP 116/74
[2018-11-06] MEDS: LEVOTHYROXINE 100 MCG TABLET PO SCH (05:01)
[2018-11-06 05:22] LABS: HCT (SEDRATE) 34.6 % (34.6-47.8)
[2018-11-06 05:26] LABS: BASOPHILS # (AUTO) 0.05 x10^3/uL (0-0.1); BASOPHILS % (AUTO) 1 % (0-1); EOSINOPHILS # (AUTO) 0.25 x10^3/uL (0-0.4); EOSINOPHILS % (AUTO) 3 % (1-7); LYMPHOCYTES % (AUTO) 36 % (22-44); MD NO; MEAN CORPUSCULAR HEMOGLOBIN 28.5 pg (27.0-34.8); MEAN CORPUSCULAR HGB CONC 32.8 g/dL (32.4-35.8); MEAN CORPUSCULAR VOLUME 86.7 fL (80-100); MEAN PLATELET VOLUME 8.3 fL (7.4-10.4); MONOCYTES # (AUTO) 0.96 x10^3/uL (0.2-0.8); MONOCYTES % (AUTO) 11 % (2-9); NEUTROPHILS # (AUTO) 4.34 x10^3/uL (1.8-6.8); NEUTROPHILS % (AUTO) 49 % (42-75); PLATELET COUNT 218 x10^3/uL (130-400); RED BLOOD COUNT 3.98 x10^6/uL (3.82-5.3); RED CELL DISTRIBUTION WIDTH 17.9 % (9.6-15.2)
[2018-11-06 05:34] LABS: ANION GAP 12 mmol/L (5-15); CALCIUM 7.7 mg/dL (8.5-10.1); CHLORIDE 91 mmol/L (98-107)
[2018-11-06 05:36] LABS: C-REACTIVE PROTEIN, QUANT 0.32 mg/dL (0.02-0.49); CREATININE 6.49 mg/dL (0.55-1.02)
[2018-11-06] MEDS: INSULIN LISPRO 100 UNITS/ML, PEN SQ-INSULIN SCH ×2 (07:00→12:10)
[2018-11-06 08:00] VITALS: BP 103/68
[2018-11-06] MEDS: LACTOBACILLUS 1GM/ PACKET PO SCH (09:02)
[2018-11-06] MEDS: CYANOCOBALAMIN 1,000 MCG TABLET PO SCH (09:04)
[2018-11-06] MEDS: CALCIUM/VITAMIN D3 250-125 TABLET PO SCH (09:04)
[2018-11-06] MEDS: MEXILETINE 150 MG CAPSULE PO SCH (09:04)
[2018-11-06] MEDS: CLOPIDOGREL 75 MG TABLET PO SCH (09:04)
[2018-11-06] MEDS: DULOXETINE 30 MG CAPSULE.DR PO SCH (09:04)
[2018-11-06] MEDS: INSULIN GLARGINE 100 UNITS/ML, PEN SQ-INSULIN SCH (09:05)
[2018-11-06] MEDS: ASCORBIC ACID 500 MG TABLET PO SCH (09:06)
== END 2018-11-06 14:18 | disposition home or self-care (01) | DRG 291 ==
LOC: ED 20:51 → EDIP 21:23 → 4WST 22:29 → DCLOUNGE 11-06 14:00
PROVIDERS: ADMIT Internal Medicine; ATTEND Internal Medicine
PROC: 5A1D70Z Performance of Urinary Filtration, Intermittent, Less than 6 Hours Per Day (ICD-10-PCS; principal; 2018-11-03)
PROC: 5A1D70Z Performance of Urinary Filtration, Intermittent, Less than 6 Hours Per Day (ICD-10-PCS; 2018-11-04)
PROC: 5A1D70Z Performance of Urinary Filtration, Intermittent, Less than 6 Hours Per Day (ICD-10-PCS; 2018-11-06)
DX: I13.2 Hypertensive heart and chronic kidney disease with heart failure and with stage 5 chronic kidney disease, or end stage renal disease (principal); N18.6 End stage renal disease; B15.9 Hepatitis A without hepatic coma; E46 Unspecified protein-calorie malnutrition; E11.22 Type 2 diabetes mellitus with diabetic chronic kidney disease; I50.9 Heart failure, unspecified; B19.20 Unspecified viral hepatitis C without hepatic coma; D63.1 Anemia in chronic kidney disease; D86.9 Sarcoidosis, unspecified; E03.9 Hypothyroidism, unspecified; E11.65 Type 2 diabetes mellitus with hyperglycemia; E11.649 Type 2 diabetes mellitus with hypoglycemia without coma; E87.5 Hyperkalemia; K52.9 Noninfective gastroenteritis and colitis, unspecified; E11.51 Type 2 diabetes mellitus with diabetic peripheral angiopathy without gangrene; E78.5 Hyperlipidemia, unspecified; E83.42 Hypomagnesemia; I25.10 Atherosclerotic heart disease of native coronary artery without angina pectoris; K21.9 Gastro-esophageal reflux disease without esophagitis; M79.7 Fibromyalgia; F32.9 Major depressive disorder, single episode, unspecified; N25.0 Renal osteodystrophy; Z99.2 Dependence on renal dialysis; Z83.3 Family history of diabetes mellitus; Z88.8 Allergy status to other drugs, medicaments and biological substances; Z79.4 Long term (current) use of insulin; Z82.49 Family history of ischemic heart disease and other diseases of the circulatory system; Z86.73 Personal history of transient ischemic attack (TIA), and cerebral infarction without residual deficits; Z89.512 Acquired absence of left leg below knee; Z87.01 Personal history of pneumonia (recurrent)
CPT/HCPCS: 36415; 71045; 80048; 80053; 82962; 83690; 83735; 84132; 85025; 85651; 86140; 86705; 86706; 86708; 86709; 86803; 87046; 87324; 87340; 87427; 89055; 93005; 96374; 96375; 99291; G0378; J1644; J3475; Q0162; J1815

== ENCOUNTER → 2018-12-29 | Outpatient (CLI) | payer OTHER ==
[~2018-12-29] MED LIST changes: -ROSU10TA PO; +ROSU10TA2 PO; +VERA240T10 PO; -VERA240T86 PO
== END | disposition home or self-care (01) ==
LOC: CFH 10:59
PROVIDERS: ATTEND Physician Assistant Surgical
DX: M85.88 Other specified disorders of bone density and structure, other site (principal); T87.89 Other complications of amputation stump

== ENCOUNTER 2019-08-01 17:17 | Emergency (ER) | payer OTHER ==
[~2019-08-01] VITALS: Ht 167.6 cm; Wt 70.1 kg
[~2019-08-01 17:17] MED LIST changes: -CYAN500T2 PO; +CYAN500T54 PO; -HYDR-3307 PO; +HYDR-36 PO
--- NOTE | 2019-08-01 17:45 | NUR ---
KIDNEY DIALYSIS FISTULA IN LEFT ARM.
[2019-08-01] MEDS ORDERED: ASPIRIN 81 MG TABLET CHEW ONE (18:14)
[2019-08-01] MEDS ORDERED: ASPIRIN 81 MG TABLET CHEW PO ONE (18:30)
[2019-08-01 18:38] LABS: ALANINE AMINOTRANSFERASE 15 U/L (12-78); ALBUMIN 3.4 g/dL (3.4-5.0); ANION GAP 7 mmol/L (5-15); CALCIUM 7.5 mg/dL (8.5-10.1); CHLORIDE 97 mmol/L (98-107); CREATININE 4.28 mg/dL (0.55-1.02)
[2019-08-01 18:42] LABS: ALKALINE PHOSPHATASE 85 U/L (45-117); BILIRUBIN,TOTAL 0.5 mg/dL (0.2-1.0); TOTAL PROTEIN 7.9 g/dL (6.4-8.2); TROPONIN I < 0.015 ng/mL (0.000-0.045)
[2019-08-01 19:14] LABS: BASOPHILS # (AUTO) 0.06 x10^3/uL (0-0.1); BASOPHILS % (AUTO) 1 % (0-1); EOSINOPHILS # (AUTO) 0.29 x10^3/uL (0-0.4); EOSINOPHILS % (AUTO) 3 % (1-7); LYMPHOCYTES # (AUTO) 1.95 x10^3/uL (1-3.4); LYMPHOCYTES % (AUTO) 21 % (22-44); MD NO; MEAN CORPUSCULAR HEMOGLOBIN 29.7 pg (27.0-34.8); MEAN CORPUSCULAR HGB CONC 32.4 g/dL (32.4-35.8); MEAN CORPUSCULAR VOLUME 91.5 fL (80-100); MEAN PLATELET VOLUME 8.6 fL (7.4-10.4); MONOCYTES # (AUTO) 0.73 x10^3/uL (0.2-0.8); MONOCYTES % (AUTO) 8 % (2-9); NEUTROPHILS # (AUTO) 6.09 x10^3/uL (1.8-6.8); NEUTROPHILS % (AUTO) 67 % (42-75); PLATELET COUNT 230 x10^3/uL (130-400); RED BLOOD COUNT 3.85 x10^6/uL (3.82-5.3); RED CELL DISTRIBUTION WIDTH 15.4 % (9.6-15.2)
--- NOTE | 2019-08-01 19:45 | NUR ---
DR CISNEROS REQUESTED IF NO CHANGE TO PT 2ND TROPONIN LEVEL TO DISCHARGE PT HOME WITH THE PAPERWORK PRINTED OUT AND PROVIDED.
[2019-08-01] MEDS ORDERED: ACETAMINOPHEN 325 MG TABLET PO ONE (20:00)
[2019-08-01] MEDS ORDERED: ACETAMINOPHEN 325 MG TABLET ONE (20:28)
[2019-08-01 21:33] LABS: TROPONIN I < 0.015 ng/mL (0.000-0.045)
--- NOTE | 2019-08-01 22:40 | NUR ---
pt resting in bed, pt a/o x4 and speaking full sentences. pt watching movie with no current complaints or needs.
[2019-08-01 22:55] VITALS: BP 168/78
== END 2019-08-01 22:59 | disposition home or self-care (01) ==
LOC: ED 18:34
DX: R07.89 Other chest pain (principal); E11.649 Type 2 diabetes mellitus with hypoglycemia without coma; E11.22 Type 2 diabetes mellitus with diabetic chronic kidney disease; I13.2 Hypertensive heart and chronic kidney disease with heart failure and with stage 5 chronic kidney disease, or end stage renal disease; I50.9 Heart failure, unspecified; N18.6 End stage renal disease; E03.9 Hypothyroidism, unspecified; E78.5 Hyperlipidemia, unspecified; Z99.2 Dependence on renal dialysis; Z91.15 Patient's noncompliance with renal dialysis; Z86.73 Personal history of transient ischemic attack (TIA), and cerebral infarction without residual deficits; Z89.512 Acquired absence of left leg below knee
CPT/HCPCS: 36415; 71045; 80053; 84484; 85025; 93005; 99284

== ENCOUNTER 2019-08-10 16:47 | Inpatient (IN) | payer OTHER ==
[~2019-08-10] VITALS: Ht 167.6 cm; Wt 75.9 kg
[~2019-08-10 16:47] MED LIST changes: +OMEP40CA42 PO; -OMEP40CA6 PO
[2019-08-10 17:42] LABS: ALANINE AMINOTRANSFERASE 15 U/L (12-78); ANION GAP 11 mmol/L (5-15); CALCIUM 8.9 mg/dL (8.5-10.1); CHLORIDE 99 mmol/L (98-107); CREATININE 4.12 mg/dL (0.55-1.02)
[2019-08-10 17:47] LABS: ALKALINE PHOSPHATASE 103 U/L (45-117); BILIRUBIN,TOTAL 0.6 mg/dL (0.2-1.0); TOTAL PROTEIN 9.6 g/dL (6.4-8.2); TROPONIN I < 0.015 ng/mL (0.000-0.045)
[2019-08-10 18:29] LABS: BASOPHILS # (AUTO) 0.06 x10^3/uL (0-0.1); BASOPHILS % (AUTO) 1 % (0-1); EOSINOPHILS # (AUTO) 0.29 x10^3/uL (0-0.4); EOSINOPHILS % (AUTO) 3 % (1-7); LYMPHOCYTES # (AUTO) 2.16 x10^3/uL (1-3.4); LYMPHOCYTES % (AUTO) 23 % (22-44); MD SCAN; MEAN CORPUSCULAR HEMOGLOBIN 29.8 pg (27.0-34.8); MEAN CORPUSCULAR HGB CONC 33.1 g/dL (32.4-35.8); MEAN CORPUSCULAR VOLUME 90.1 fL (80-100); MEAN PLATELET VOLUME 8.3 fL (7.4-10.4); MONOCYTES # (AUTO) 0.78 x10^3/uL (0.2-0.8); MONOCYTES % (AUTO) 8 % (2-9); NEUTROPHILS # (AUTO) 6.23 x10^3/uL (1.8-6.8); NEUTROPHILS % (AUTO) 66 % (42-75); PLATELET COUNT 221 x10^3/uL (130-400); RED BLOOD COUNT 4.16 x10^6/uL (3.82-5.3); RED CELL DISTRIBUTION WIDTH 16.6 % (9.6-15.2)
--- NOTE | 2019-08-10 18:57 | NUR ---
RECEIVED BS REPORT FROM KARLEE RIVERA.
[2019-08-10] MEDS ORDERED: LABETALOL 5MG/ML, 20ML IVPush ONE (19:00)
--- NOTE | 2019-08-10 19:09 | NUR ---
Provided bedside report to KARLEE Gan. All questions answered. REGIS. KARLEE Gan to assume care of pt at this time. No needs expressed at this time.
[2019-08-10] MEDS ORDERED: LABETALOL 5MG/ML, 20ML ONE (19:17)
--- NOTE | 2019-08-10 19:33 | NUR ---
PT PLACED ON 1L NC DUE TO 91% O2 SAT WHIEL RESTING ON GURNEY. PT REPORTS USING 2L NC HOME O2 AT NIGHT.
[2019-08-10] MEDS ORDERED: ATEN25TA PO (20:37)
[2019-08-10] MEDS ORDERED: MEXI150C PO (20:37)
[2019-08-10] MEDS ORDERED: DIPH25CA61 PO (20:37)
[2019-08-10] MEDS ORDERED: CALC300T4 PO (20:37)
[2019-08-10] MEDS ORDERED: INSU100V13 SC (20:37)
[2019-08-10] MEDS ORDERED: OXYC-295 PO (20:37)
[2019-08-10] MEDS ORDERED: ERGO400T3 PO (20:41)
--- NOTE | 2019-08-10 21:07 | NUR ---
PT. RESTING ON GURNEY WITH NO DISTRESS NOTED. PT. PROVIDED WITH ICE CHIPS PER REQUEST AND OK FROM DR. LEIVA. PT. AWAITING TRANSPORT UPSTARIRS. PT. DENIES OTHER NEEDS. DENIES PAIN.
--- NOTE | 2019-08-10 21:34 | NUR ---
REPORT GIVEN TO KARLEE GUTIÉRREZ.
[2019-08-10 21:57] VITALS: BP 193/87
[2019-08-10 21:59] VITALS: BP 193/87
[2019-08-10] MEDS: hydrALAzine 20 MG/ML, 1ML IV PRN (22:57)
[2019-08-10 23:42] VITALS: BP 179/85
[2019-08-11] VITALS (8 sets, daily range): BP systolic 124–195; BP diastolic 66–96
[2019-08-11] MEDS ORDERED: NITROGLYCERIN 0.4 MG BOTTLE (25 TABS) SL PRN (03:00)
[2019-08-11] MEDS ORDERED: morphine SULFATE 10 MG/ML, 1ML IVPush PRN (03:00)
[2019-08-11] MEDS ORDERED: DOCUSATE 100 MG CAPSULE PO PRN (03:00)
[2019-08-11] MEDS ORDERED: ACETAMINOPHEN 325 MG TABLET PO PRN (03:00)
[2019-08-11] MEDS ORDERED: POLYETHYLENE GLYCOL 17 GM PACKET PO PRN (03:00)
[2019-08-11] MEDS ORDERED: BISACODYL 10 MG SUPP PR PRN (03:00)
[2019-08-11] MEDS ORDERED: ONDANSETRON 2MG/ML, 2ML IVPush PRN (03:00)
[2019-08-11] MEDS ORDERED: ONDANSETRON ODT 4 MG PO PRN (03:00)
[2019-08-11] MEDS ORDERED: PROMETHAZINE 25 MG/ML, 1ML IM PRN (03:00)
[2019-08-11] MEDS: hydrALAzine 20 MG/ML, 1ML IV PRN ×2 (03:11→08:24)
[2019-08-11] MEDS: OXYcodone IR 5MG TABLET PO PRN ×2 (03:11→10:01)
[2019-08-11 03:32] LABS: FREE T4 (FREE THYROXINE) 0.93 ng/dL (0.76-1.46); TROPONIN I < 0.015 ng/mL (0.000-0.045)
[2019-08-11 03:45] LABS: HEMOGLOBIN A1C 9.4 % (4.2-6.3)
[2019-08-11] MEDS: HEPARIN 5,000 UNITS/ML, 1ML SQ SCH ×2 (04:15→11:16)
[2019-08-11 05:55] LABS: TROPONIN I < 0.015 ng/mL (0.000-0.045)
[2019-08-11] MEDS: MEXILETINE 150 MG CAPSULE PO SCH ×2 (08:08→20:41)
[2019-08-11] MEDS: LEVOTHYROXINE 100 MCG TABLET PO SCH (08:08)
[2019-08-11] MEDS: ASPIRIN 325 MG TABLET EC PO SCH (08:08)
[2019-08-11] MEDS: CLOPIDOGREL 75 MG TABLET PO SCH (08:09)
[2019-08-11] MEDS: ATENOLOL 25 MG TABLET PO SCH ×2 (08:09→20:41)
[2019-08-11] MEDS: CALCIUM/VITAMIN D3 250-125 TABLET PO SCH ×2 (08:09→20:40)
[2019-08-11] MEDS: DULOXETINE 30 MG CAPSULE.DR PO SCH ×2 (08:26→20:42)
[2019-08-11] MEDS: INSULIN LISPRO 100 UNITS/ML, PEN SQ-INSULIN SCH ×4 (08:59→21:19)
[2019-08-11] MEDS: CALCIUM CARBONATE PO SCH ×3 (08:59→21:00)
[2019-08-11] MEDS ORDERED: DEXTROSE 50%, 50ML SYRINGE IVPush STA (11:29)
[2019-08-11] MEDS ORDERED: GLUCAGON 1 MG IM PRN (11:30)
[2019-08-11] MEDS ORDERED: DEXTROSE 4 GM TAB.CHEW PO PRN (11:30)
[2019-08-11] MEDS ORDERED: REGADENOSON 0.4 MG/5 ML SYRINGE ONE (12:20)
[2019-08-11] MEDS ORDERED: HEPARIN 5,000 UNITS/ML, 1ML IV PRN (18:30)
[2019-08-11] MEDS ORDERED: HEPARIN 5,000 UNITS/ML, 1ML IV ONE (18:30)
[2019-08-11] MEDS ORDERED: HEPARIN 25,000 UNITS/500ML PMX 500 ML IV PRN (18:30)
[2019-08-11] MEDS: PANTOPROZOLE 40MG TABLET PO SCH (20:41)
[2019-08-11] MEDS: TERAZOSIN 5MG CAPSULE PO SCH (20:41)
[2019-08-11] MEDS ORDERED: ROSUVASTATIN CALCIUM PO SCH (21:00)
[2019-08-11] MEDS: SODIUM CHLORIDE FLUSH 10ML SYR IVF SCH (21:20)
[2019-08-12] MEDS ORDERED: ZOLPIDEM 10MG TABLET PO PRN
[2019-08-12 01:10] VITALS: BP 119/66
[2019-08-12] MEDS: OXYcodone IR 5MG TABLET PO PRN (06:31)
[2019-08-12 06:36] LABS: BASOPHILS # (AUTO) 0.07 x10^3/uL (0-0.1); BASOPHILS % (AUTO) 1 % (0-1); EOSINOPHILS # (AUTO) 0.32 x10^3/uL (0-0.4); EOSINOPHILS % (AUTO) 4 % (1-7); LYMPHOCYTES # (AUTO) 2.39 x10^3/uL (1-3.4); LYMPHOCYTES % (AUTO) 29 % (22-44); MD NO; MEAN CORPUSCULAR HEMOGLOBIN 29.5 pg (27.0-34.8); MEAN CORPUSCULAR HGB CONC 32.7 g/dL (32.4-35.8); MEAN CORPUSCULAR VOLUME 90.1 fL (80-100); MEAN PLATELET VOLUME 7.9 fL (7.4-10.4); MONOCYTES # (AUTO) 0.89 x10^3/uL (0.2-0.8); MONOCYTES % (AUTO) 11 % (2-9); NEUTROPHILS # (AUTO) 4.55 x10^3/uL (1.8-6.8); NEUTROPHILS % (AUTO) 55 % (42-75); PLATELET COUNT 225 x10^3/uL (130-400); RED BLOOD COUNT 3.48 x10^6/uL (3.82-5.3); RED CELL DISTRIBUTION WIDTH 16.6 % (9.6-15.2)
[2019-08-12 06:48] LABS: ALANINE AMINOTRANSFERASE 11 U/L (12-78); ALBUMIN 2.9 g/dL (3.4-5.0); ANION GAP 10 mmol/L (5-15); CALCIUM 6.9 mg/dL (8.5-10.1); CHLORIDE 100 mmol/L (98-107); CHOLESTEROL, TOTAL 174 mg/dL (140-239); CREATININE 6.51 mg/dL (0.55-1.02); TRIGLYCERIDES 126 mg/dL (50-200); VLDL CHOLESTEROL 25 mg/dL (0-25)
[2019-08-12 06:50] LABS: ALKALINE PHOSPHATASE 75 U/L (45-117); BILIRUBIN,TOTAL 0.4 mg/dL (0.2-1.0); HDL CHOL % 20 % (28-40); HDL CHOLESTEROL (DIRECT) 35 mg/dL (40-60); LDL CHOLESTEROL,CALCULATED 114 mg/dL (54-169); LDL/HDL RATIO 3.3 (0.5-3.0); TOTAL PROTEIN 7.2 g/dL (6.4-8.2)
[2019-08-12 07:42] VITALS: BP 128/61
[2019-08-12] MEDS: CALCIUM CARBONATE PO SCH ×3 (07:49→21:00)
[2019-08-12] MEDS: INSULIN LISPRO 100 UNITS/ML, PEN SQ-INSULIN SCH ×4 (08:05→20:43)
[2019-08-12] MEDS: MEXILETINE 150 MG CAPSULE PO SCH ×2 (09:00→20:39)
[2019-08-12] MEDS: ATENOLOL 25 MG TABLET PO SCH ×2 (09:00→20:38)
[2019-08-12] MEDS: FAMOTIDINE 20 MG TABLET PO SCH ×2 (09:00→20:41)
[2019-08-12] MEDS: ASPIRIN 325 MG TABLET EC PO SCH (09:00)
[2019-08-12] MEDS: CLOPIDOGREL 75 MG TABLET PO SCH (09:00)
[2019-08-12] MEDS: CALCIUM/VITAMIN D3 250-125 TABLET PO SCH ×2 (09:01→20:40)
[2019-08-12] MEDS: DULOXETINE 30 MG CAPSULE.DR PO SCH ×2 (09:01→20:40)
[2019-08-12] MEDS: LEVOTHYROXINE 100 MCG TABLET PO SCH (09:01)
[2019-08-12] MEDS: SODIUM CHLORIDE FLUSH 10ML SYR IVF SCH ×2 (09:02→20:51)
[2019-08-12] MEDS: DIPHENHYDRAMINE 50 MG CAPSULE PO SCH ×3 (11:40→20:41)
[2019-08-12] MEDS: SODIUM CHLORIDE 0.9% 1,000 ML IV SCH ×3 (11:41→20:51)
[2019-08-12] MEDS ORDERED: VERAPAMIL 2.5 MG/ML, 2ML ONE (11:48)
[2019-08-12] MEDS ORDERED: MIDAZOLAM 1 MG/ML, 5ML ONE (11:48)
[2019-08-12] MEDS ORDERED: FENTANYL PF 100 MCG/2ML ONE (11:48)
[2019-08-12] MEDS ORDERED: BIVALIRUDIN 250 MG ONE (11:49)
[2019-08-12] MEDS ORDERED: NITROGLYCERIN 5 MG/ML, 10ML ONE (11:49)
[2019-08-12] MEDS ORDERED: LIDOCAINE 1%, 20ML ONE (11:49)
[2019-08-12] MEDS ORDERED: methylPREDNISolone SOD SUCC 125 MG/2 ML ONE (11:55)
[2019-08-12] MEDS ORDERED: DIPHENHYDRAMINE 50 MG/ML, 1ML ONE (11:55)
[2019-08-12] MEDS ORDERED: ASPIRIN 325 MG TABLET EC ONE (13:12)
[2019-08-12] MEDS ORDERED: TICAGRELOR 90 MG TABLET ONE (13:12)
[2019-08-12] MEDS ORDERED: BIVALIRUDIN 250 MG in SODIUM CHLORIDE 0.9% 50 ML IV SCH (13:14)
[2019-08-12 13:37] VITALS: BP 132/80
[2019-08-12 19:40] VITALS: BP 118/73
[2019-08-12] MEDS: TERAZOSIN 5MG CAPSULE PO SCH (20:39)
[2019-08-12] MEDS: PANTOPROZOLE 40MG TABLET PO SCH (20:39)
[2019-08-12] MEDS ORDERED: TICAGRELOR 90 MG TABLET PO SCH (21:00)
[2019-08-12] MEDS ORDERED: TEMPLATE NON-FORMULARY MED. (Rosuvastatin Calcium** (Crestor**) 20 MG) PO SCH (21:00)
[2019-08-12 22:45] VITALS: BP 133/80
[2019-08-13 01:31] VITALS: BP 111/63
[2019-08-13] MEDS: SODIUM CHLORIDE 0.9% 1,000 ML IV SCH ×2 (03:00→05:00)
[2019-08-13 04:34] LABS: ANION GAP 8 mmol/L (5-15); CALCIUM 7.6 mg/dL (8.5-10.1); CHLORIDE 99 mmol/L (98-107)
[2019-08-13] MEDS: ASPIRIN 325 MG TABLET EC PO SCH (05:00)
[2019-08-13] MEDS: CALCIUM CARBONATE PO SCH (08:02)
[2019-08-13 08:07] VITALS: BP 118/66
[2019-08-13] MEDS: CALCIUM/VITAMIN D3 250-125 TABLET PO SCH (08:18)
[2019-08-13] MEDS: CLOPIDOGREL 75 MG TABLET PO SCH (08:19)
[2019-08-13] MEDS: SODIUM CHLORIDE FLUSH 10ML SYR IVF SCH (08:20)
[2019-08-13] MEDS: MEXILETINE 150 MG CAPSULE PO SCH (08:20)
[2019-08-13] MEDS: LEVOTHYROXINE 100 MCG TABLET PO SCH (08:20)
[2019-08-13] MEDS: DULOXETINE 30 MG CAPSULE.DR PO SCH (08:20)
[2019-08-13] MEDS: ATENOLOL 25 MG TABLET PO SCH (08:21)
[2019-08-13] MEDS: INSULIN LISPRO 100 UNITS/ML, PEN SQ-INSULIN SCH ×2 (08:22→11:42)
[2019-08-13] MEDS ORDERED: ASPI81TA45 PO (11:02)
[2019-08-14] MEDS ORDERED: ERGOCALCIFEROL 50,000 UNIT CAPSULE PO SCH (09:00)
== END 2019-08-13 13:28 | disposition home or self-care (01) | DRG 246 ==
LOC: ED 20:33 → EDIP 21:08 → 5SO 21:47 → DCLOUNGE 08-13 13:07
PROVIDERS: ADMIT Internal Medicine; ATTEND Internal Medicine
PROC: 5A1D70Z Performance of Urinary Filtration, Intermittent, Less than 6 Hours Per Day (ICD-10-PCS; principal; 2019-08-12)
PROC: 027034Z Dilation of Coronary Artery, One Artery with Drug-eluting Intraluminal Device, Percutaneous Approach (ICD-10-PCS; 2019-08-12)
PROC: 4A023N7 Measurement of Cardiac Sampling and Pressure, Left Heart, Percutaneous Approach (ICD-10-PCS; 2019-08-12)
PROC: B211YZZ Fluoroscopy of Multiple Coronary Arteries using Other Contrast (ICD-10-PCS; 2019-08-12)
PROC: B215YZZ Fluoroscopy of Left Heart using Other Contrast (ICD-10-PCS; 2019-08-12)
DX: I16.1 Hypertensive emergency (principal); N18.6 End stage renal disease; I25.110 Atherosclerotic heart disease of native coronary artery with unstable angina pectoris; I13.2 Hypertensive heart and chronic kidney disease with heart failure and with stage 5 chronic kidney disease, or end stage renal disease; D63.1 Anemia in chronic kidney disease; D86.9 Sarcoidosis, unspecified; E03.9 Hypothyroidism, unspecified; E11.22 Type 2 diabetes mellitus with diabetic chronic kidney disease; E11.51 Type 2 diabetes mellitus with diabetic peripheral angiopathy without gangrene; E78.5 Hyperlipidemia, unspecified; E87.6 Hypokalemia; I50.9 Heart failure, unspecified; M79.7 Fibromyalgia; N25.0 Renal osteodystrophy; Z82.49 Family history of ischemic heart disease and other diseases of the circulatory system; Z86.73 Personal history of transient ischemic attack (TIA), and cerebral infarction without residual deficits; Z87.891 Personal history of nicotine dependence; Z89.512 Acquired absence of left leg below knee; Z98.62 Peripheral vascular angioplasty status; Z99.2 Dependence on renal dialysis; Z91.041 Radiographic dye allergy status
CPT/HCPCS: 36415; 93458; C9600; J3490; 71045; 78452; 80048; 80053; 80061; 82962; 83036; 83735; 83880; 84439; 84443; 84484; 85025; 85520; 90935; 93005; 93015; 93306; 99156; 99157; C1769; C1894; G0378; J0583; J1644; J2250; J2785; J3010; Q0162; A9502; C1725; C1874; C1887; J0360; J1200; J1815; J2270; J2930; J7030; J7512; Q9967

== ENCOUNTER 2019-08-23 18:32 | Inpatient (IN) | payer OTHER ==
[~2019-08-23] VITALS: Ht 167.6 cm; Wt 74.0 kg
[~2019-08-23 18:32] MED LIST changes: +ASPI81TA45 PO; +ATEN25TA PO; +ERGO400T3 PO; +OXYC-295 PO
--- NOTE | 2019-08-23 18:44 | NUR ---
Patient brought in by EMS for reported left sided chest pain radiating down her left arm without associated symptoms. No interventions by EMS en route. EKG performed. Continuous blood pressure, SPO2 and cardiac monitoring in place.
[2019-08-23] MEDS ORDERED: ONDANSETRON 2MG/ML, 2ML IVPush ONE (19:00)
[2019-08-23] MEDS ORDERED: SODIUM CHLORIDE FLUSH 10ML SYR IVF ONE (19:00)
[2019-08-23] MEDS ORDERED: MORPHINE SULFATE 4 MG/ML, 1ML IVPush PRN (19:00)
--- NOTE | 2019-08-23 19:03 | NUR ---
Dr. Carlisle notified of patient's suicide risk score. Bedside report to KARLEE Ocampo
[2019-08-23] MEDS ORDERED: ASPIRIN 81 MG TABLET EC ONE (19:09)
[2019-08-23] MEDS ORDERED: ONDANSETRON 2MG/ML, 2ML ONE (19:10)
[2019-08-23] MEDS ORDERED: MORPHINE SULFATE 4 MG/ML, 1ML ONE (19:10)
[2019-08-23 19:18] LABS: BASOPHILS # (AUTO) 0.02 x10^3/uL (0-0.1); BASOPHILS % (AUTO) 0 % (0-1); EOSINOPHILS # (AUTO) 0.25 x10^3/uL (0-0.4); EOSINOPHILS % (AUTO) 2 % (1-7); LYMPHOCYTES # (AUTO) 1.83 x10^3/uL (1-3.4); LYMPHOCYTES % (AUTO) 17 % (22-44); MD NO; MEAN CORPUSCULAR HEMOGLOBIN 29.2 pg (27.0-34.8); MEAN CORPUSCULAR HGB CONC 32.5 g/dL (32.4-35.8); MEAN CORPUSCULAR VOLUME 89.8 fL (80-100); MEAN PLATELET VOLUME 7.6 fL (7.4-10.4); MONOCYTES # (AUTO) 1.06 x10^3/uL (0.2-0.8); MONOCYTES % (AUTO) 10 % (2-9); NEUTROPHILS # (AUTO) 7.97 x10^3/uL (1.8-6.8); NEUTROPHILS % (AUTO) 72 % (42-75); PLATELET COUNT 329 x10^3/uL (130-400); RED BLOOD COUNT 3.58 x10^6/uL (3.82-5.3); RED CELL DISTRIBUTION WIDTH 15.8 % (9.6-15.2)
[2019-08-23 19:28] LABS: ALANINE AMINOTRANSFERASE 15 U/L (12-78); ANION GAP 8 mmol/L (5-15); CHLORIDE 96 mmol/L (98-107); CREATININE 5.59 mg/dL (0.55-1.02)
[2019-08-23 19:32] LABS: ALKALINE PHOSPHATASE 98 U/L (45-117); BILIRUBIN,TOTAL 0.4 mg/dL (0.2-1.0); TOTAL PROTEIN 8.4 g/dL (6.4-8.2); TROPONIN I < 0.015 ng/mL (0.000-0.045)
[2019-08-23] MEDS: ASPIRIN 81 MG TABLET CHEW PO ONE ×2 (20:12→20:19)
[2019-08-23] MEDS ORDERED: ASPIRIN 81 MG TABLET CHEW ONE (20:18)
--- NOTE | 2019-08-23 20:23 | NUR ---
pt medicate dpvy mar, iv site started by ed sup, monitors in place, siderails up x2, call light within reach
[2019-08-23] MEDS ORDERED: SODIUM CHLORIDE FLUSH 10ML SYR IVF PRN (20:30)
[2019-08-23] MEDS ORDERED: PRED50TA PO (20:45)
[2019-08-23] MEDS ORDERED: PRO AIR INHALER INH (20:45)
[2019-08-23] MEDS ORDERED: CALCITROL PO (20:45)
[2019-08-23] MEDS ORDERED: OXYC-432 PO (20:45)
[2019-08-23] MEDS ORDERED: CYCLOBENZAPRINE 10 MG TABLET PO PRN (21:00)
[2019-08-23] MEDS ORDERED: NITROGLYCERIN OINT 2%, 1GM TP ONE (21:00)
[2019-08-23] MEDS ORDERED: DIPHENHYDRAMINE 25 MG CAPSULE PO PRN (21:00)
[2019-08-23] MEDS ORDERED: MECLIZINE 25 MG TABLET PO PRN (21:00)
[2019-08-23] MEDS ORDERED: ONDANSETRON ODT 4 MG SL PRN (21:00)
[2019-08-23] MEDS ORDERED: CARISOPRODOL 350 MG TABLET PO PRN (21:00)
[2019-08-23] MEDS ORDERED: ATENOLOL 50 MG TABLET PO SCH (21:00)
[2019-08-23] MEDS ORDERED: hydrALAzine 20 MG/ML, 1ML IV PRN (21:00)
[2019-08-23] MEDS ORDERED: ATENOLOL MC SCH (21:30)
[2019-08-23 22:00] VITALS: BP 185/93
[2019-08-23] MEDS: MEXILETINE 150 MG CAPSULE PO SCH (22:21)
[2019-08-23] MEDS: PANTOPROZOLE 40MG TABLET PO SCH (22:22)
[2019-08-23] MEDS: TERAZOSIN 5MG CAPSULE PO SCH (22:22)
[2019-08-23] MEDS: INSULIN LISPRO 100 UNITS/ML, PEN SQ-INSULIN SCH (23:06)
[2019-08-23] MEDS: INSULIN GLARGINE 100 UNITS/ML, PEN SQ-INSULIN SCH (23:06)
[2019-08-24] VITALS (11 sets, daily range): BP systolic 99–185; BP diastolic 61–93
[2019-08-24] MEDS ORDERED: DEXTROSE 4 GM TAB.CHEW PO PRN (05:00)
[2019-08-24] MEDS ORDERED: GLUCAGON 1 MG IM PRN (05:00)
[2019-08-24] MEDS ORDERED: DEXTROSE 50%, 50ML SYRINGE IVPush PRN (05:00)
[2019-08-24 05:29] LABS: BASOPHILS # (AUTO) 0.08 x10^3/uL (0-0.1); BASOPHILS % (AUTO) 1 % (0-1); EOSINOPHILS # (AUTO) 0.31 x10^3/uL (0-0.4); EOSINOPHILS % (AUTO) 3 % (1-7); LYMPHOCYTES # (AUTO) 2.02 x10^3/uL (1-3.4); LYMPHOCYTES % (AUTO) 17 % (22-44); MD NO; MEAN CORPUSCULAR HEMOGLOBIN 29.4 pg (27.0-34.8); MEAN CORPUSCULAR HGB CONC 32.2 g/dL (32.4-35.8); MEAN CORPUSCULAR VOLUME 91.4 fL (80-100); MEAN PLATELET VOLUME 7.7 fL (7.4-10.4); MONOCYTES # (AUTO) 1.28 x10^3/uL (0.2-0.8); MONOCYTES % (AUTO) 11 % (2-9); NEUTROPHILS # (AUTO) 8.21 x10^3/uL (1.8-6.8); NEUTROPHILS % (AUTO) 69 % (42-75); PLATELET COUNT 288 x10^3/uL (130-400); RED BLOOD COUNT 3.42 x10^6/uL (3.82-5.3); RED CELL DISTRIBUTION WIDTH 16.1 % (9.6-15.2)
[2019-08-24] MEDS: ACETAMINOPHEN 325 MG TABLET PO PRN ×2 (05:29→15:33)
[2019-08-24 05:43] LABS: ANION GAP 9 mmol/L (5-15); CALCIUM 6.7 mg/dL (8.5-10.1); CHLORIDE 101 mmol/L (98-107)
[2019-08-24 05:48] LABS: TROPONIN I < 0.015 ng/mL (0.000-0.045)
[2019-08-24] MEDS: INSULIN LISPRO 100 UNITS/ML, PEN SQ-INSULIN SCH ×4 (07:00→21:47)
[2019-08-24] MEDS ORDERED: ATENOLOL 50 MG TABLET PO SCH (09:00)
[2019-08-24] MEDS: INSULIN GLARGINE 100 UNITS/ML, PEN SQ-INSULIN SCH ×2 (09:00→21:00)
[2019-08-24] MEDS: SODIUM CHLORIDE FLUSH 10ML SYR IVF SCH ×2 (10:36→21:00)
[2019-08-24] MEDS: ASPIRIN 81 MG TABLET EC PO SCH (10:38)
[2019-08-24] MEDS: MEXILETINE 150 MG CAPSULE PO SCH ×2 (10:39→21:46)
[2019-08-24] MEDS: LEVOTHYROXINE 100 MCG TABLET PO SCH (10:39)
[2019-08-24] MEDS: CLOPIDOGREL 75 MG TABLET PO SCH (10:39)
[2019-08-24] MEDS: ATENOLOL 50 MG TABLET PO SCH ×2 (10:39→21:46)
[2019-08-24] MEDS ORDERED: NITROGLYCERIN 0.4 MG BOTTLE (25 TABS) SL ONE (11:31)
[2019-08-24] MEDS: ONDANSETRON 2MG/ML, 2ML IVPush PRN ×2 (11:34→23:13)
[2019-08-24] MEDS: NITROGLYCERIN SINGLE TAB 0.4 MG SL PRN ×2 (11:40→11:45)
[2019-08-24] MEDS: PANTOPROZOLE 40MG TABLET PO SCH (21:46)
[2019-08-24] MEDS: TERAZOSIN 5MG CAPSULE PO SCH (21:46)
[2019-08-25 05:12] LABS: BASOPHILS # (AUTO) 0.07 x10^3/uL (0-0.1); BASOPHILS % (AUTO) 1 % (0-1); EOSINOPHILS # (AUTO) 0.24 x10^3/uL (0-0.4); EOSINOPHILS % (AUTO) 2 % (1-7); LYMPHOCYTES # (AUTO) 2.23 x10^3/uL (1-3.4); LYMPHOCYTES % (AUTO) 19 % (22-44); MD NO; MEAN CORPUSCULAR HEMOGLOBIN 29.4 pg (27.0-34.8); MEAN CORPUSCULAR HGB CONC 32.3 g/dL (32.4-35.8); MEAN PLATELET VOLUME 7.9 fL (7.4-10.4); MONOCYTES # (AUTO) 1.21 x10^3/uL (0.2-0.8); MONOCYTES % (AUTO) 10 % (2-9); NEUTROPHILS # (AUTO) 8.11 x10^3/uL (1.8-6.8); NEUTROPHILS % (AUTO) 68 % (42-75); PLATELET COUNT 289 x10^3/uL (130-400); RED BLOOD COUNT 3.56 x10^6/uL (3.82-5.3); RED CELL DISTRIBUTION WIDTH 15.9 % (9.6-15.2)
[2019-08-25 05:26] LABS: CHLORIDE 97 mmol/L (98-107)
[2019-08-25 05:27] LABS: ALBUMIN 2.7 g/dL (3.4-5.0); ANION GAP 8 mmol/L (5-15); CALCIUM 7.3 mg/dL (8.5-10.1)
[2019-08-25 05:28] LABS: CREATININE 4.17 mg/dL (0.55-1.02)
[2019-08-25] MEDS ORDERED: CALCIUM GLUCONATE 4.6 MEQ in SODIUM CHLORIDE 0.9% 50 ML IV ONE (07:30)
[2019-08-25] MEDS ORDERED: POTASSIUM PHOSPHATE 44 MEQ in SODIUM CHLORIDE 0.9% 500 ML IV ONE (07:30)
[2019-08-25 07:36] VITALS: BP 110/66
[2019-08-25] MEDS: CLOPIDOGREL 75 MG TABLET PO SCH (08:20)
[2019-08-25] MEDS: ATENOLOL 50 MG TABLET PO SCH (08:20)
[2019-08-25] MEDS: ASPIRIN 81 MG TABLET EC PO SCH (08:20)
[2019-08-25] MEDS: LEVOTHYROXINE 100 MCG TABLET PO SCH (08:20)
[2019-08-25] MEDS: MEXILETINE 150 MG CAPSULE PO SCH (08:21)
[2019-08-25] MEDS: SODIUM CHLORIDE FLUSH 10ML SYR IVF SCH (08:21)
[2019-08-25] MEDS: INSULIN LISPRO 100 UNITS/ML, PEN SQ-INSULIN SCH (08:40)
[2019-08-25] MEDS: INSULIN GLARGINE 100 UNITS/ML, PEN SQ-INSULIN SCH (08:40)
[2019-08-25] MEDS ORDERED: CALCIUM CARBONATE 500 MG TAB.CHEW PO ONE (09:00)
== END 2019-08-25 10:40 | disposition home or self-care (01) | DRG 304 ==
LOC: ED 18:55 → EDIP 20:11 → 5SO 21:19 → DCLOUNGE 08-25 10:34
PROVIDERS: ADMIT Internal Medicine; ATTEND Family Medicine
PROC: 5A1D70Z Performance of Urinary Filtration, Intermittent, Less than 6 Hours Per Day (ICD-10-PCS; principal; 2019-08-24)
DX: I16.0 Hypertensive urgency (principal); N18.6 End stage renal disease; D63.1 Anemia in chronic kidney disease; I13.2 Hypertensive heart and chronic kidney disease with heart failure and with stage 5 chronic kidney disease, or end stage renal disease; E03.9 Hypothyroidism, unspecified; E11.22 Type 2 diabetes mellitus with diabetic chronic kidney disease; E11.51 Type 2 diabetes mellitus with diabetic peripheral angiopathy without gangrene; E11.65 Type 2 diabetes mellitus with hyperglycemia; E78.5 Hyperlipidemia, unspecified; I25.111 Atherosclerotic heart disease of native coronary artery with angina pectoris with documented spasm; I50.9 Heart failure, unspecified; M79.7 Fibromyalgia; N25.0 Renal osteodystrophy; Z79.02 Long term (current) use of antithrombotics/antiplatelets; Z79.4 Long term (current) use of insulin; Z79.82 Long term (current) use of aspirin; Z79.890 Hormone replacement therapy; Z79.899 Other long term (current) drug therapy; Z82.49 Family history of ischemic heart disease and other diseases of the circulatory system; Z89.512 Acquired absence of left leg below knee; Z91.041 Radiographic dye allergy status; Z95.5 Presence of coronary angioplasty implant and graft; Z99.2 Dependence on renal dialysis; Z88.8 Allergy status to other drugs, medicaments and biological substances
CPT/HCPCS: 36415; 71045; 80048; 80053; 80069; 82962; 84484; 85025; 90935; 93005; 96374; 96375; 99285; G0378; J0610; J2405; J1815; J2270

== ENCOUNTER 2019-12-14 17:35 | Inpatient (IN) | payer OTHER ==
[~2019-12-14] VITALS: Ht 167.6 cm; Wt 82.0 kg
[~2019-12-14 17:35] MED LIST changes: +CALCITROL PO; +MECL-101 PO; -MECL25TA4 PO; +OXYC-432 PO; +PRED50TA PO; +PRO AIR INHALER INH
[2019-12-14] MEDS ORDERED: ADENOSINE 60 MG/20 ML IVPush ONE (18:08)
[2019-12-14] MEDS ORDERED: SODIUM CHLORIDE FLUSH 10ML SYR IVF ONE (18:30)
[2019-12-14] MEDS ORDERED: ADENOSINE 6 MG/2 ML ONE ×2 (18:33→18:39)
[2019-12-14 18:40] LABS: BASOPHILS # (AUTO) 0.05 x10^3/uL (0-0.1); BASOPHILS % (AUTO) 0 % (0-1); EOSINOPHILS # (AUTO) 0.11 x10^3/uL (0-0.4); EOSINOPHILS % (AUTO) 1 % (1-7); LYMPHOCYTES # (AUTO) 1.01 x10^3/uL (1-3.4); LYMPHOCYTES % (AUTO) 8 % (22-44); MD NO; MEAN CORPUSCULAR HEMOGLOBIN 28.8 pg (27.0-34.8); MEAN CORPUSCULAR VOLUME 87.5 fL (80-100); MEAN PLATELET VOLUME 8.2 fL (7.4-10.4); MONOCYTES # (AUTO) 1.12 x10^3/uL (0.2-0.8); MONOCYTES % (AUTO) 9 % (2-9); NEUTROPHILS # (AUTO) 10.32 x10^3/uL (1.8-6.8); NEUTROPHILS % (AUTO) 82 % (42-75); PLATELET COUNT 226 x10^3/uL (130-400); RED BLOOD COUNT 3.42 x10^6/uL (3.82-5.3)
--- NOTE | 2019-12-14 18:44 | NUR ---
DR CUADRA AT BEDSIDE. DEFIB PADS IN PLACE AND MONITOR ON AND IN SYNC MODE. PT MED WITH 6MG ADENOSINE FAST FLUSH. BRIEF PAUSE WITH SLOWING OF HR INTO 80'S +NSR BUT HR RTD TO RATE OF 127. PT TOLLERATED PROCEDURE WELL.
[2019-12-14 18:47] LABS: ALANINE AMINOTRANSFERASE 67 U/L (12-78); ALBUMIN 3.4 g/dL (3.4-5.0); ANION GAP 19 mmol/L (5-15); CALCIUM 9.4 mg/dL (8.5-10.1); CHLORIDE 97 mmol/L (98-107)
[2019-12-14 18:52] LABS: ALKALINE PHOSPHATASE 143 U/L (45-117); BILIRUBIN,TOTAL 2.3 mg/dL (0.2-1.0); CREATININE 3.13 mg/dL (0.55-1.02); TOTAL PROTEIN 8.2 g/dL (6.4-8.2)
--- NOTE | 2019-12-14 19:00 | NUR ---
SBAR RPT TO RN. [place] TO COMPLETE PHYSICAL ASSESSMENT. PT VSS AND HR CONTINUES ST 120'S
[2019-12-14 19:05] LABS: TROPONIN I 0.186 ng/mL (0.000-0.045)
[2019-12-14] MEDS ORDERED: METO-95 PO (19:12)
[2019-12-14] MEDS ORDERED: FUROSEMIDE 20 MG/2 ML IV ONE (19:21)
[2019-12-14] MEDS ORDERED: METOPROLOL 1 MG/ML, 5ML IVPush ONE (19:40)
[2019-12-14] MEDS ORDERED: METOPROLOL 1 MG/ML, 5ML ONE (19:41)
[2019-12-14] MEDS ORDERED: FUROSEMIDE 20 MG/2 ML ONE (19:47)
--- NOTE | 2019-12-14 19:50 | NUR ---
2ND EKG DONE PT'S HEART rhythm ST HR from 120-150's notified to dr lopez obtained metoprolol ivp thenhr back doen up to 100's bp stable given lasix ivp pt is sleeping no needs
--- NOTE | 2019-12-14 19:55 | NUR ---
pt stated no pee eventhough using lasix pt is on dialysis for 20yrs now
--- NOTE | 2019-12-14 20:30 | NUR ---
given report to albert jimenez at bedside for admit eval pt is ready to go
[2019-12-14 21:00] VITALS: BP 145/83
[2019-12-14] MEDS ORDERED: CLON1PAT2 TD (21:51)
[2019-12-14] MEDS ORDERED: ACET-1600 PO (22:00)
[2019-12-14] MEDS: CLONIDINE PATCH MC SCH (23:45)
[2019-12-14 23:52] LABS: RAPID INFLUENZA A Negative (Negative); RAPID INFLUENZA B Negative (Negative)
[2019-12-15 00:07] VITALS: BP 156/89
[2019-12-15] MEDS: ASPIRIN 81 MG TABLET EC PO SCH (04:17)
[2019-12-15] MEDS ORDERED: HEPARIN 25,000 UNITS/250ML PMX 250 ML IV PRN (04:30)
[2019-12-15] MEDS ORDERED: HEPARIN 5,000 UNITS/ML, 1ML IV PRN (04:30)
[2019-12-15] MEDS ORDERED: ASPIRIN 325 MG TABLET PO ONE (04:30)
[2019-12-15] MEDS ORDERED: HEPARIN 5,000 UNITS/ML, 1ML IV ONE (04:30)
[2019-12-15] MEDS: INSULIN LISPRO 100 UNITS/ML, PEN SQ-INSULIN SCH ×5 (07:00→21:31)
[2019-12-15 07:08] VITALS: BP 151/75
[2019-12-15] MEDS: CLONIDINE PATCH MC SCH ×3 (07:45→23:45)
[2019-12-15] MEDS ORDERED: FUROSEMIDE 20 MG/2 ML IV SCH (09:00)
[2019-12-15] MEDS ORDERED: LEVALBUTEROL TARTRATE INH PRN (10:00)
[2019-12-15] MEDS ORDERED: ERGOCALCIFEROL 50,000 UNIT CAPSULE PO SCH (10:00)
[2019-12-15] MEDS ORDERED: ALBUTEROL SULFATE 2.5 MG/3 ML NEB PRN (10:00)
[2019-12-15] MEDS: CALCITRIOL 0.5 MCG CAPSULE PO SCH (10:00)
[2019-12-15] MEDS: Cyclosporine (Restasis) 1 DROP EACHEYE SCH ×2 (10:00→21:29)
[2019-12-15] MEDS ORDERED: METOPROLOL SUCCINATE 100 MG TAB.ER.24H PO SCH (10:00)
[2019-12-15] MEDS: INSULIN GLARGINE 100 UNITS/ML, PEN SQ-INSULIN SCH ×2 (10:00→21:32)
[2019-12-15] MEDS: CALCIUM CARBONATE 500 MG TAB.CHEW PO SCH ×3 (12:07→21:27)
[2019-12-15] MEDS: LEVOTHYROXINE 100 MCG TABLET PO SCH (12:07)
[2019-12-15] MEDS: MEXILETINE 150 MG CAPSULE PO SCH ×2 (12:08→21:57)
[2019-12-15] MEDS: DULOXETINE 30 MG CAPSULE.DR PO SCH ×2 (12:09→21:27)
[2019-12-15] MEDS: CLOPIDOGREL 75 MG TABLET PO SCH (12:09)
[2019-12-15 12:40] VITALS: BP 171/75
[2019-12-15 13:55] VITALS: BP 104/66
[2019-12-15] MEDS ORDERED: DIPHENHYDRAMINE 50 MG/ML, 1ML IVPush ONE (14:00)
[2019-12-15] MEDS ORDERED: methylPREDNISolone SOD SUCC 125 MG/2 ML IVPush SCH (14:00)
[2019-12-15] MEDS ORDERED: ATROPINE SYRINGE 0.1 MG/ML, 10ML ONE (14:35)
[2019-12-15] MEDS ORDERED: SODIUM CHLORIDE 0.9%, 250ML IVBOLUS ONE (15:00)
[2019-12-15] MEDS: SODIUM CHLORIDE 0.9% 1,000 ML IV SCH ×2 (15:00→23:00)
[2019-12-15] MEDS ORDERED: BIVALIRUDIN 250 MG ONE (15:18)
[2019-12-15] MEDS ORDERED: VERAPAMIL 2.5 MG/ML, 2ML ONE (15:18)
[2019-12-15] MEDS ORDERED: MIDAZOLAM 1 MG/ML, 5ML ONE (15:18)
[2019-12-15] MEDS ORDERED: HEPARIN 1,000 UNITS/ML, 10ML ONE (15:18)
[2019-12-15] MEDS ORDERED: TICAGRELOR 90 MG TABLET ONE (15:18)
[2019-12-15] MEDS ORDERED: LIDOCAINE-MPF 1%, 5ML ONE (15:18)
[2019-12-15] MEDS ORDERED: FENTANYL PF 100 MCG/2ML ONE (15:18)
[2019-12-15] MEDS ORDERED: ONDANSETRON 2MG/ML, 2ML ONE (15:29)
[2019-12-15 16:43] VITALS: BP 100/51
[2019-12-15] MEDS ORDERED: ATROPINE SYRINGE 0.1 MG/ML, 10ML IVPush ONE (17:00)
[2019-12-15 18:06] LABS: BASOPHILS # (AUTO) 0.06 x10^3/uL (0-0.1); BASOPHILS % (AUTO) 0 % (0-1); EOSINOPHILS # (AUTO) 0.13 x10^3/uL (0-0.4); EOSINOPHILS % (AUTO) 1 % (1-7); LYMPHOCYTES # (AUTO) 2.73 x10^3/uL (1-3.4); LYMPHOCYTES % (AUTO) 19 % (22-44); MD NO; MEAN CORPUSCULAR HEMOGLOBIN 28.8 pg (27.0-34.8); MEAN CORPUSCULAR HGB CONC 32.5 g/dL (32.4-35.8); MEAN CORPUSCULAR VOLUME 88.4 fL (80-100); MEAN PLATELET VOLUME 8.5 fL (7.4-10.4); MONOCYTES # (AUTO) 0.73 x10^3/uL (0.2-0.8); MONOCYTES % (AUTO) 5 % (2-9); NEUTROPHILS # (AUTO) 11.04 x10^3/uL (1.8-6.8); NEUTROPHILS % (AUTO) 75 % (42-75); PLATELET COUNT 207 x10^3/uL (130-400); RED BLOOD COUNT 3.59 x10^6/uL (3.82-5.3); RED CELL DISTRIBUTION WIDTH 16.6 % (9.6-15.2)
[2019-12-15 18:18] LABS: ANION GAP 19 mmol/L (5-15); CALCIUM 8.8 mg/dL (8.5-10.1); CHLORIDE 99 mmol/L (98-107); CREATININE 4.44 mg/dL (0.55-1.02)
[2019-12-15 20:48] VITALS: BP 108/61
[2019-12-15] MEDS: PANTOPRAZOLE 40MG TABLET PO SCH (21:27)
[2019-12-15] MEDS ORDERED: DEXTROSE 50%, 50ML SYRINGE ONE (21:51)
[2019-12-15] MEDS: TERAZOSIN 5MG CAPSULE PO SCH (21:58)
[2019-12-15] MEDS: SODIUM CHLORIDE FLUSH 10ML SYR IVF SCH (21:59)
[2019-12-15] MEDS ORDERED: DEXTROSE 50%, 50ML SYRINGE IVPush PRN (22:00)
[2019-12-15] MEDS ORDERED: GLUCAGON 1 MG IM PRN (22:00)
[2019-12-15] MEDS ORDERED: DEXTROSE 4 GM TAB.CHEW PO PRN (22:00)
[2019-12-16 01:50] VITALS: BP 105/59
[2019-12-16 06:19] LABS: BASOPHILS # (AUTO) 0.02 x10^3/uL (0-0.1); BASOPHILS % (AUTO) 0 % (0-1); EOSINOPHILS % (AUTO) 0 % (1-7); LYMPHOCYTES # (AUTO) 1.39 x10^3/uL (1-3.4); LYMPHOCYTES % (AUTO) 14 % (22-44); MD NO; MEAN CORPUSCULAR HEMOGLOBIN 29.1 pg (27.0-34.8); MEAN CORPUSCULAR HGB CONC 32.8 g/dL (32.4-35.8); MEAN CORPUSCULAR VOLUME 88.6 fL (80-100); MONOCYTES % (AUTO) 6 % (2-9); NEUTROPHILS # (AUTO) 8.05 x10^3/uL (1.8-6.8); NEUTROPHILS % (AUTO) 80 % (42-75); PLATELET COUNT 154 x10^3/uL (130-400); RED BLOOD COUNT 2.93 x10^6/uL (3.82-5.3); RED CELL DISTRIBUTION WIDTH 16.6 % (9.6-15.2)
[2019-12-16 06:20] LABS: ANION GAP 24 mmol/L (5-15); CALCIUM 7.9 mg/dL (8.5-10.1); CHLORIDE 92 mmol/L (98-107)
[2019-12-16 06:24] LABS: ALANINE AMINOTRANSFERASE 280 U/L (12-78); ALKALINE PHOSPHATASE 191 U/L (45-117); BILIRUBIN,TOTAL 0.8 mg/dL (0.2-1.0); CREATININE 5.11 mg/dL (0.55-1.02)
[2019-12-16] MEDS: SODIUM CHLORIDE 0.9% 1,000 ML IV SCH (07:00)
[2019-12-16] MEDS: INSULIN LISPRO 100 UNITS/ML, PEN SQ-INSULIN SCH ×4 (07:49→21:18)
[2019-12-16 07:50] VITALS: BP 100/57
[2019-12-16] MEDS: Cyclosporine (Restasis) 1 DROP EACHEYE SCH ×2 (09:00→21:12)
[2019-12-16] MEDS: MEXILETINE 150 MG CAPSULE PO SCH ×2 (09:00→21:00)
[2019-12-16] MEDS: SODIUM CHLORIDE FLUSH 10ML SYR IVF SCH ×2 (09:00→21:13)
[2019-12-16] MEDS: DULOXETINE 30 MG CAPSULE.DR PO SCH ×2 (09:00→21:13)
[2019-12-16] MEDS: CLOPIDOGREL 75 MG TABLET PO SCH (09:21)
[2019-12-16] MEDS: ASPIRIN 81 MG TABLET EC PO SCH (09:21)
[2019-12-16] MEDS: CALCIUM CARBONATE 500 MG TAB.CHEW PO SCH ×3 (09:21→21:12)
[2019-12-16] MEDS: CALCITRIOL 0.5 MCG CAPSULE PO SCH (09:21)
[2019-12-16] MEDS: LEVOTHYROXINE 100 MCG TABLET PO SCH (09:21)
[2019-12-16] MEDS: INSULIN GLARGINE 100 UNITS/ML, PEN SQ-INSULIN SCH ×2 (12:04→21:19)
[2019-12-16] MEDS: CLONIDINE PATCH MC SCH (19:36)
[2019-12-16] MEDS: TERAZOSIN 5MG CAPSULE PO SCH (21:00)
[2019-12-16 21:10] VITALS: BP 96/60
[2019-12-16] MEDS: PANTOPRAZOLE 40MG TABLET PO SCH (21:13)
[2019-12-17 03:28] VITALS: BP 115/70
[2019-12-17 05:31] LABS: BASOPHILS # (AUTO) 0.03 x10^3/uL (0-0.1); BASOPHILS % (AUTO) 0 % (0-1); EOSINOPHILS # (AUTO) 0.01 x10^3/uL (0-0.4); EOSINOPHILS % (AUTO) 0 % (1-7); LYMPHOCYTES # (AUTO) 1.47 x10^3/uL (1-3.4); LYMPHOCYTES % (AUTO) 15 % (22-44); MD NO; MEAN CORPUSCULAR HGB CONC 32.7 g/dL (32.4-35.8); MEAN CORPUSCULAR VOLUME 88.5 fL (80-100); MEAN PLATELET VOLUME 8.5 fL (7.4-10.4); MONOCYTES # (AUTO) 0.76 x10^3/uL (0.2-0.8); MONOCYTES % (AUTO) 8 % (2-9); NEUTROPHILS # (AUTO) 7.86 x10^3/uL (1.8-6.8); NEUTROPHILS % (AUTO) 78 % (42-75); PLATELET COUNT 185 x10^3/uL (130-400); RED BLOOD COUNT 2.81 x10^6/uL (3.82-5.3); RED CELL DISTRIBUTION WIDTH 15.6 % (9.6-15.2)
[2019-12-17 05:40] LABS: ANION GAP 5 mmol/L (5-15); CALCIUM 8.2 mg/dL (8.5-10.1); CHLORIDE 101 mmol/L (98-107)
[2019-12-17 05:58] LABS: % IRON SATURATION 57 % (20-55); ALANINE AMINOTRANSFERASE 739 U/L (12-78); ALKALINE PHOSPHATASE 167 U/L (45-117); BILIRUBIN,TOTAL 0.6 mg/dL (0.2-1.0); CREATININE 3.19 mg/dL (0.55-1.02); IRON LEVEL 139 mcg/dL (50-170); TOTAL IRON BINDING CAPACITY 244 mcg/dL (250-450); TOTAL PROTEIN 6.9 g/dL (6.4-8.2)
[2019-12-17 06:49] VITALS: BP 137/78
[2019-12-17] MEDS: INSULIN LISPRO 100 UNITS/ML, PEN SQ-INSULIN SCH ×4 (08:06→21:00)
[2019-12-17] MEDS: MEXILETINE 150 MG CAPSULE PO SCH ×2 (08:16→21:00)
[2019-12-17] MEDS: SODIUM CHLORIDE FLUSH 10ML SYR IVF SCH ×2 (09:00→21:05)
[2019-12-17] MEDS: DULOXETINE 30 MG CAPSULE.DR PO SCH ×2 (09:00→21:04)
[2019-12-17] MEDS: Cyclosporine (Restasis) 1 DROP EACHEYE SCH ×2 (09:00→21:00)
[2019-12-17] MEDS: CALCIUM CARBONATE 500 MG TAB.CHEW PO SCH ×3 (09:43→21:03)
[2019-12-17] MEDS: CALCITRIOL 0.5 MCG CAPSULE PO SCH (09:44)
[2019-12-17] MEDS: ASPIRIN 81 MG TABLET EC PO SCH (09:44)
[2019-12-17] MEDS: LEVOTHYROXINE 100 MCG TABLET PO SCH (09:44)
[2019-12-17] MEDS: CLOPIDOGREL 75 MG TABLET PO SCH (09:44)
[2019-12-17] MEDS: INSULIN GLARGINE 100 UNITS/ML, PEN SQ-INSULIN SCH ×2 (12:55→21:00)
[2019-12-17 14:40] VITALS: BP 128/74
[2019-12-17] MEDS: TERAZOSIN 5MG CAPSULE PO SCH (21:04)
[2019-12-17] MEDS: PANTOPRAZOLE 40MG TABLET PO SCH (21:04)
[2019-12-17 21:10] VITALS: BP 128/73
[2019-12-18 00:20] VITALS: BP 120/83
[2019-12-18 03:05] VITALS: BP 119/68
[2019-12-18 05:55] LABS: BASOPHILS # (AUTO) 0.04 x10^3/uL (0-0.1); BASOPHILS % (AUTO) 0 % (0-1); EOSINOPHILS % (AUTO) 2 % (1-7); LYMPHOCYTES # (AUTO) 1.96 x10^3/uL (1-3.4); LYMPHOCYTES % (AUTO) 20 % (22-44); MD NO; MEAN CORPUSCULAR HEMOGLOBIN 29.2 pg (27.0-34.8); MEAN CORPUSCULAR HGB CONC 33.1 g/dL (32.4-35.8); MEAN PLATELET VOLUME 8.9 fL (7.4-10.4); MONOCYTES # (AUTO) 0.89 x10^3/uL (0.2-0.8); MONOCYTES % (AUTO) 9 % (2-9); NEUTROPHILS # (AUTO) 6.78 x10^3/uL (1.8-6.8); NEUTROPHILS % (AUTO) 69 % (42-75); PLATELET COUNT 184 x10^3/uL (130-400); RED BLOOD COUNT 2.78 x10^6/uL (3.82-5.3); RED CELL DISTRIBUTION WIDTH 16.2 % (9.6-15.2)
[2019-12-18 06:01] LABS: ANION GAP 7 mmol/L (5-15); CALCIUM 7.9 mg/dL (8.5-10.1); CHLORIDE 102 mmol/L (98-107); CREATININE 4.39 mg/dL (0.55-1.02)
[2019-12-18] MEDS: INSULIN LISPRO 100 UNITS/ML, PEN SQ-INSULIN SCH ×4 (07:00→22:44)
[2019-12-18 07:50] VITALS: BP 138/71
[2019-12-18] MEDS: LEVOTHYROXINE 100 MCG TABLET PO SCH (07:52)
[2019-12-18] MEDS: ASPIRIN 81 MG TABLET EC PO SCH (07:52)
[2019-12-18] MEDS: CALCITRIOL 0.5 MCG CAPSULE PO SCH (07:52)
[2019-12-18] MEDS: CLOPIDOGREL 75 MG TABLET PO SCH (07:53)
[2019-12-18] MEDS: Cyclosporine (Restasis) 1 DROP EACHEYE SCH ×2 (07:53→21:00)
[2019-12-18] MEDS: DULOXETINE 30 MG CAPSULE.DR PO SCH ×2 (07:53→22:29)
[2019-12-18] MEDS: SODIUM CHLORIDE FLUSH 10ML SYR IVF SCH ×2 (07:53→22:34)
[2019-12-18] MEDS: CALCIUM CARBONATE 500 MG TAB.CHEW PO SCH ×4 (07:53→22:29)
[2019-12-18 07:55] LABS: ALBUMIN 2.6 g/dL (3.4-5.0); BILIRUBIN, DIRECT 0.1 mg/dL (0.1-0.2)
[2019-12-18 07:57] LABS: BILIRUBIN,INDIRECT 0.3 mg/dL (0.0-2.0); BILIRUBIN,TOTAL 0.4 mg/dL (0.2-1.0); TOTAL PROTEIN 6.2 g/dL (6.4-8.2)
[2019-12-18] MEDS: INSULIN GLARGINE 100 UNITS/ML, PEN SQ-INSULIN SCH ×2 (09:11→22:44)
[2019-12-18] MEDS: NEUTRA PHOS K 250 MG TABLET PO SCH ×3 (09:22→23:48)
[2019-12-18] MEDS: MEXILETINE 150 MG CAPSULE PO SCH ×2 (09:59→22:28)
[2019-12-18] MEDS ORDERED: ARANESP 100 MCG/ML **ESRD SQ SCH (10:00)
[2019-12-18 15:07] VITALS: BP 126/70
[2019-12-18] MEDS: METOPROLOL TARTRATE 25 MG TAB PO SCH (18:01)
[2019-12-18 19:02] VITALS: BP 153/71
[2019-12-18 22:24] VITALS: BP 118/95
[2019-12-18] MEDS: PANTOPRAZOLE 40MG TABLET PO SCH (22:29)
[2019-12-18] MEDS: TERAZOSIN 5MG CAPSULE PO SCH (22:30)
[2019-12-19 01:10] VITALS: BP 142/66
[2019-12-19 05:23] LABS: BASOPHILS # (AUTO) 0.06 x10^3/uL (0-0.1); BASOPHILS % (AUTO) 1 % (0-1); EOSINOPHILS # (AUTO) 0.33 x10^3/uL (0-0.4); EOSINOPHILS % (AUTO) 3 % (1-7); LYMPHOCYTES # (AUTO) 3.07 x10^3/uL (1-3.4); LYMPHOCYTES % (AUTO) 26 % (22-44); MD NO; MEAN CORPUSCULAR HEMOGLOBIN 28.6 pg (27.0-34.8); MEAN CORPUSCULAR HGB CONC 32.2 g/dL (32.4-35.8); MEAN PLATELET VOLUME 8.4 fL (7.4-10.4); MONOCYTES # (AUTO) 1.14 x10^3/uL (0.2-0.8); MONOCYTES % (AUTO) 10 % (2-9); NEUTROPHILS # (AUTO) 7.34 x10^3/uL (1.8-6.8); NEUTROPHILS % (AUTO) 62 % (42-75); PLATELET COUNT 211 x10^3/uL (130-400); RED BLOOD COUNT 3.14 x10^6/uL (3.82-5.3)
[2019-12-19 05:24] LABS: ALBUMIN 2.7 g/dL (3.4-5.0); ANION GAP 7 mmol/L (5-15); CALCIUM 8.1 mg/dL (8.5-10.1); CHLORIDE 101 mmol/L (98-107)
[2019-12-19 05:28] LABS: ALANINE AMINOTRANSFERASE 400 U/L (12-78); ALKALINE PHOSPHATASE 147 U/L (45-117); BILIRUBIN,TOTAL 0.7 mg/dL (0.2-1.0); CREATININE 2.96 mg/dL (0.55-1.02); TOTAL PROTEIN 6.8 g/dL (6.4-8.2)
[2019-12-19] MEDS: METOPROLOL TARTRATE 25 MG TAB PO SCH ×2 (06:21→17:51)
[2019-12-19] MEDS: INSULIN LISPRO 100 UNITS/ML, PEN SQ-INSULIN SCH ×4 (07:00→22:11)
[2019-12-19 08:02] VITALS: BP 97/58
[2019-12-19] MEDS: Cyclosporine (Restasis) 1 DROP EACHEYE SCH ×2 (09:00→21:00)
[2019-12-19] MEDS: ASPIRIN 81 MG TABLET EC PO SCH (09:27)
[2019-12-19] MEDS: LEVOTHYROXINE 100 MCG TABLET PO SCH (09:27)
[2019-12-19] MEDS: CALCIUM CARBONATE 500 MG TAB.CHEW PO SCH ×3 (09:27→21:53)
[2019-12-19] MEDS: CALCITRIOL 0.5 MCG CAPSULE PO SCH (09:28)
[2019-12-19] MEDS: CLOPIDOGREL 75 MG TABLET PO SCH (09:28)
[2019-12-19] MEDS: SODIUM CHLORIDE FLUSH 10ML SYR IVF SCH ×2 (09:29→21:56)
[2019-12-19] MEDS: INSULIN GLARGINE 100 UNITS/ML, PEN SQ-INSULIN SCH ×2 (09:30→22:12)
[2019-12-19] MEDS: NEUTRA PHOS K 250 MG TABLET PO SCH ×2 (09:45→22:13)
[2019-12-19] MEDS: DULOXETINE 30 MG CAPSULE.DR PO SCH ×2 (09:45→21:54)
[2019-12-19 14:10] VITALS: BP 101/61
[2019-12-19 17:52] VITALS: BP 118/58
[2019-12-19 21:44] VITALS: BP 118/63
[2019-12-19] MEDS: TERAZOSIN 5MG CAPSULE PO SCH (21:52)
[2019-12-19] MEDS: PANTOPRAZOLE 40MG TABLET PO SCH (21:55)
[2019-12-20 00:30] VITALS: BP 138/74
[2019-12-20] MEDS ORDERED: GABAPENTIN 300 MG CAPSULE PO ONE (00:30)
[2019-12-20] MEDS ORDERED: MORPHINE SULFATE 4 MG/ML, 1ML IVPush PRN (01:30)
[2019-12-20 01:54] LABS: TROPONIN I 0.736 ng/mL (0.000-0.045)
[2019-12-20] MEDS ORDERED: NITROGLYCERIN 0.4 MG/SPRAY SL PRN (03:00)
[2019-12-20] MEDS ORDERED: NITROGLYCERIN 0.4 MG BOTTLE (25 TABS) SL PRN (03:00)
[2019-12-20 05:31] VITALS: BP 116/70
[2019-12-20] MEDS: METOPROLOL TARTRATE 25 MG TAB PO SCH ×2 (05:31→17:29)
[2019-12-20 07:08] VITALS: BP 126/74
[2019-12-20 07:36] LABS: BASOPHILS # (AUTO) 0.06 x10^3/uL (0-0.1); BASOPHILS % (AUTO) 1 % (0-1); EOSINOPHILS # (AUTO) 0.36 x10^3/uL (0-0.4); EOSINOPHILS % (AUTO) 3 % (1-7); LYMPHOCYTES # (AUTO) 2.59 x10^3/uL (1-3.4); LYMPHOCYTES % (AUTO) 20 % (22-44); MD NO; MEAN CORPUSCULAR HEMOGLOBIN 28.7 pg (27.0-34.8); MEAN CORPUSCULAR HGB CONC 32.3 g/dL (32.4-35.8); MEAN PLATELET VOLUME 8.3 fL (7.4-10.4); MONOCYTES # (AUTO) 1.07 x10^3/uL (0.2-0.8); MONOCYTES % (AUTO) 8 % (2-9); NEUTROPHILS # (AUTO) 8.72 x10^3/uL (1.8-6.8); NEUTROPHILS % (AUTO) 68 % (42-75); PLATELET COUNT 240 x10^3/uL (130-400); RED BLOOD COUNT 3.06 x10^6/uL (3.82-5.3)
[2019-12-20 07:43] LABS: ALBUMIN 2.7 g/dL (3.4-5.0); ANION GAP 5 mmol/L (5-15); CHLORIDE 101 mmol/L (98-107)
[2019-12-20 07:48] LABS: CREATININE 4.41 mg/dL (0.55-1.02); TROPONIN I 0.869 ng/mL (0.000-0.045)
[2019-12-20] MEDS: INSULIN LISPRO 100 UNITS/ML, PEN SQ-INSULIN SCH ×4 (08:38→21:00)
[2019-12-20] MEDS ORDERED: POTASSIUM PHOSPHATE 44 MEQ in SODIUM CHLORIDE 0.9% 500 ML IV ONE (09:00)
[2019-12-20] MEDS: PREGABALIN 75 MG CAPSULE PO SCH (09:32)
[2019-12-20] MEDS: LEVOTHYROXINE 100 MCG TABLET PO SCH (09:32)
[2019-12-20] MEDS: CLOPIDOGREL 75 MG TABLET PO SCH (09:32)
[2019-12-20] MEDS: DULOXETINE 30 MG CAPSULE.DR PO SCH ×2 (09:32→21:39)
[2019-12-20] MEDS: CALCITRIOL 0.5 MCG CAPSULE PO SCH (09:32)
[2019-12-20] MEDS: CALCIUM CARBONATE 500 MG TAB.CHEW PO SCH ×3 (09:32→21:40)
[2019-12-20] MEDS: ASPIRIN 81 MG TABLET EC PO SCH (09:33)
[2019-12-20] MEDS: SODIUM CHLORIDE FLUSH 10ML SYR IVF SCH ×2 (09:33→21:42)
[2019-12-20] MEDS: Cyclosporine (Restasis) 1 DROP EACHEYE SCH ×2 (09:33→21:00)
[2019-12-20] MEDS: NEUTRA PHOS K 250 MG TABLET PO SCH ×2 (11:05→21:39)
[2019-12-20 14:37] VITALS: BP 103/64
[2019-12-20] MEDS: LACTOBACILLUS CHEW TABLET PO SCH ×2 (17:29→21:39)
[2019-12-20] MEDS: INSULIN GLARGINE 100 UNITS/ML, PEN SQ-INSULIN SCH (21:39)
[2019-12-20] MEDS: TERAZOSIN 5MG CAPSULE PO SCH (21:40)
[2019-12-20] MEDS: PANTOPRAZOLE 40MG TABLET PO SCH (21:40)
[2019-12-20 21:50] VITALS: BP 109/72
[2019-12-21 02:00] VITALS: BP 98/61
[2019-12-21] MEDS: METOPROLOL TARTRATE 25 MG TAB PO SCH (06:11)
[2019-12-21] MEDS: INSULIN LISPRO 100 UNITS/ML, PEN SQ-INSULIN SCH ×3 (07:00→17:00)
[2019-12-21 07:08] VITALS: BP 110/72
[2019-12-21] MEDS: CLOPIDOGREL 75 MG TABLET PO SCH (08:15)
[2019-12-21] MEDS: CALCIUM CARBONATE 500 MG TAB.CHEW PO SCH ×2 (08:15→16:55)
[2019-12-21] MEDS: LACTOBACILLUS CHEW TABLET PO SCH ×2 (08:16→16:55)
[2019-12-21] MEDS: SODIUM CHLORIDE FLUSH 10ML SYR IVF SCH (08:16)
[2019-12-21] MEDS: LEVOTHYROXINE 100 MCG TABLET PO SCH (08:16)
[2019-12-21] MEDS: PREGABALIN 75 MG CAPSULE PO SCH (08:16)
[2019-12-21] MEDS: DULOXETINE 30 MG CAPSULE.DR PO SCH (08:16)
[2019-12-21] MEDS: CALCITRIOL 0.5 MCG CAPSULE PO SCH (08:16)
[2019-12-21] MEDS: ASPIRIN 81 MG TABLET EC PO SCH (08:16)
[2019-12-21] MEDS: Cyclosporine (Restasis) 1 DROP EACHEYE SCH (08:19)
[2019-12-21] MEDS: INSULIN GLARGINE 100 UNITS/ML, PEN SQ-INSULIN SCH (09:00)
[2019-12-21] MEDS: NEUTRA PHOS K 250 MG TABLET PO SCH (10:00)
[2019-12-21 15:35] VITALS: BP 116/68
[2019-12-21] MEDS ORDERED: ACID1TAB7 PO (15:51)
[2019-12-21] MEDS ORDERED: PHOS250T3 PO (15:51)
[2019-12-21] MEDS ORDERED: CARV3.1212 PO (15:51)
[2019-12-21] MEDS ORDERED: CLOP75TA PO (15:51)
[2019-12-21] MEDS ORDERED: NITR0.4T41 SL (15:51)
[2019-12-21] MEDS ORDERED: CARVEDILOL 3.125 MG TABLET PO SCH (18:00)
== END 2019-12-21 18:44 | DRG 246 ==
LOC: ED 20:55 → OBSVTOIN 20:56 → EDIP 20:56 → INTOOBSV 20:56 → 5SO 21:09
PROVIDERS: ADMIT Family Medicine; ATTEND Internal Medicine
PROC: 027034Z Dilation of Coronary Artery, One Artery with Drug-eluting Intraluminal Device, Percutaneous Approach (ICD-10-PCS; principal; 2019-12-14)
PROC: B211YZZ Fluoroscopy of Multiple Coronary Arteries using Other Contrast (ICD-10-PCS; 2019-12-14)
PROC: 5A1D70Z Performance of Urinary Filtration, Intermittent, Less than 6 Hours Per Day (ICD-10-PCS; 2019-12-16)
PROC: 5A1D70Z Performance of Urinary Filtration, Intermittent, Less than 6 Hours Per Day (ICD-10-PCS; 2019-12-18)
PROC: 5A1D70Z Performance of Urinary Filtration, Intermittent, Less than 6 Hours Per Day (ICD-10-PCS; 2019-12-21)
DX: I21.4 Non-ST elevation (NSTEMI) myocardial infarction (principal); N18.6 End stage renal disease; I50.41 Acute combined systolic (congestive) and diastolic (congestive) heart failure; E87.1 Hypo-osmolality and hyponatremia; E87.2 Acidosis; I13.2 Hypertensive heart and chronic kidney disease with heart failure and with stage 5 chronic kidney disease, or end stage renal disease; I47.1 Supraventricular tachycardia; D63.1 Anemia in chronic kidney disease; E03.9 Hypothyroidism, unspecified; E11.22 Type 2 diabetes mellitus with diabetic chronic kidney disease; E11.40 Type 2 diabetes mellitus with diabetic neuropathy, unspecified; E11.51 Type 2 diabetes mellitus with diabetic peripheral angiopathy without gangrene; E11.65 Type 2 diabetes mellitus with hyperglycemia; E21.1 Secondary hyperparathyroidism, not elsewhere classified; E78.5 Hyperlipidemia, unspecified; E87.5 Hyperkalemia; G47.30 Sleep apnea, unspecified; I25.119 Atherosclerotic heart disease of native coronary artery with unspecified angina pectoris; K80.20 Calculus of gallbladder without cholecystitis without obstruction; D86.9 Sarcoidosis, unspecified; I27.20 Pulmonary hypertension, unspecified; M79.7 Fibromyalgia; Z79.4 Long term (current) use of insulin; Z86.73 Personal history of transient ischemic attack (TIA), and cerebral infarction without residual deficits; Z87.891 Personal history of nicotine dependence; Z89.512 Acquired absence of left leg below knee; Z99.2 Dependence on renal dialysis; Z90.49 Acquired absence of other specified parts of digestive tract; Z79.899 Other long term (current) drug therapy; Z88.8 Allergy status to other drugs, medicaments and biological substances; Z91.041 Radiographic dye allergy status
CPT/HCPCS: 36415; 87400; 93454; 93571; C9600; 71045; 76705; 80048; 80053; 80069; 80074; 80076; 82728; 82947; 82962; 83036; 83540; 83550; 83605; 83735; 83880; 84100; 84484; 85025; 85520; 90935; 93005; 93306; 99156; C1760; C1769; C1894; G0378; J0153; J0461; J0583; J0882; J1644; J2250; J2405; J3010; C1874; C1887; J1815; J1940; J2270; J7040; J7050; Q9967

== ENCOUNTER 2019-12-23 04:31 | Inpatient (IN) | payer OTHER ==
[~2019-12-23] VITALS: Ht 167.6 cm; Wt 74.3 kg
[~2019-12-23 04:31] MED LIST changes: +ACET-1600 PO; +ACID1TAB7 PO; +CLON1PAT2 TD; +CLOP75TA PO; +METO-95 PO; +NITR0.4T41 SL; +PHOS250T3 PO
[2019-12-23] MEDS ORDERED: TERA10CA3 PO (04:55)
[2019-12-23] MEDS ORDERED: NITR0.4T41 SL (04:55)
[2019-12-23] MEDS ORDERED: RESTASIS (04:55)
[2019-12-23] MEDS ORDERED: ALPR0.5T7 PO (04:55)
[2019-12-23] MEDS ORDERED: LEVEMIR (04:55)
[2019-12-23] MEDS ORDERED: PROAIR (04:55)
[2019-12-23] MEDS ORDERED: ONDA4TAB7 PO (04:55)
[2019-12-23] MEDS ORDERED: LEVO100T5 PO (04:55)
[2019-12-23] MEDS ORDERED: PHOSPHA PO (04:55)
[2019-12-23] MEDS ORDERED: MECL-101 PO (04:55)
[2019-12-23] MEDS ORDERED: DULO60CA7 PO (04:55)
[2019-12-23] MEDS ORDERED: MEXI150C PO (04:55)
[2019-12-23] MEDS ORDERED: CLOP75TA PO (04:55)
[2019-12-23] MEDS ORDERED: ASCO-96 PO (04:55)
[2019-12-23] MEDS ORDERED: PANT40TA5 PO (04:55)
[2019-12-23] MEDS ORDERED: CARV3.1212 PO (04:55)
[2019-12-23] MEDS ORDERED: CALCITROL PO ×2 (04:55)
[2019-12-23] MEDS ORDERED: INSU100C SQ-INSULIN (04:55)
[2019-12-23] MEDS ORDERED: ZOLP10TA PO (04:55)
[2019-12-23] MEDS ORDERED: CARI350T14 PO (04:55)
[2019-12-23] MEDS ORDERED: LEVA15HF4 INH (04:55)
[2019-12-23] MEDS ORDERED: PRED50TA PO (04:55)
[2019-12-23] MEDS ORDERED: DIPH25CA61 PO (04:55)
[2019-12-23] MEDS ORDERED: ERGO400T3 PO (04:55)
[2019-12-23] MEDS ORDERED: CALC500T29 PO (04:55)
[2019-12-23] MEDS ORDERED: ASPI-496 PO (04:55)
--- NOTE | 2019-12-23 04:59 | NUR ---
CODE CARDIAC CANCELLED BY RONALD DARDEN
[2019-12-23 05:00] LABS: MEAN CORPUSCULAR HEMOGLOBIN 29.1 pg (27.0-34.8); MEAN CORPUSCULAR HGB CONC 33.3 g/dL (32.4-35.8); MEAN CORPUSCULAR VOLUME 87.4 fL (80-100); PLATELET COUNT 236 x10^3/uL (130-400); RED BLOOD COUNT 2.71 x10^6/uL (3.82-5.3); RED CELL DISTRIBUTION WIDTH 16.5 % (9.6-15.2)
--- NOTE | 2019-12-23 05:00 | NUR ---
Code cardiac called @0421 after [facility] prealert. Cardiology called @0423. Gomez called back @0425. All oil field laborer in route per code phone @3025.
[2019-12-23 05:13] LABS: ALANINE AMINOTRANSFERASE 111 U/L (12-78); ALBUMIN 2.5 g/dL (3.4-5.0); ANION GAP 10 mmol/L (5-15); CALCIUM 7.8 mg/dL (8.5-10.1); CHLORIDE 96 mmol/L (98-107); CREATININE 4.73 mg/dL (0.55-1.02)
[2019-12-23 05:17] LABS: ALKALINE PHOSPHATASE 153 U/L (45-117); BILIRUBIN,TOTAL 0.5 mg/dL (0.2-1.0); TOTAL PROTEIN 7.2 g/dL (6.4-8.2)
--- NOTE | 2019-12-23 05:25 | NUR ---
CODE CARDIAC REPAGED AFTER ER MD SPOKE WITH CARDIO ABOUT TROP.
--- NOTE | 2019-12-23 05:27 | NUR ---
POC DISCUSSED. PT DENIES CURRENT NEEDS. AWAITING HISTOLOGICAL ILLUSTRATOR
[2019-12-23] MEDS ORDERED: MIDAZOLAM 1 MG/ML, 5ML ONE (05:45)
[2019-12-23] MEDS ORDERED: FENTANYL PF 100 MCG/2ML ONE (05:45)
[2019-12-23] MEDS ORDERED: VERAPAMIL 2.5 MG/ML, 2ML ONE (05:46)
[2019-12-23] MEDS ORDERED: BIVALIRUDIN 250 MG ONE (05:46)
[2019-12-23] MEDS ORDERED: HEPARIN 1,000 UNITS/ML, 10ML ONE (05:46)
[2019-12-23] MEDS ORDERED: TICAGRELOR 90 MG TABLET ONE (05:46)
[2019-12-23] MEDS ORDERED: LIDOCAINE 2%, 20ML ONE (05:46)
[2019-12-23 05:48] LABS: BASOPHILS # (AUTO) 0.02 x10^3/uL (0-0.1); BASOPHILS % (AUTO) 0 % (0-1); EOSINOPHILS # (AUTO) 0.06 x10^3/uL (0-0.4); EOSINOPHILS % (AUTO) 1 % (1-7); LYMPHOCYTES # (AUTO) 1.47 x10^3/uL (1-3.4); LYMPHOCYTES % (AUTO) 10 % (22-44); MD SCAN; MONOCYTES # (AUTO) 2.27 x10^3/uL (0.2-0.8); MONOCYTES % (AUTO) 16 % (2-9); NEUTROPHILS # (AUTO) 10.42 x10^3/uL (1.8-6.8); NEUTROPHILS % (AUTO) 73 % (42-75)
[2019-12-23] MEDS ORDERED: methylPREDNISolone SOD SUCC 125 MG/2 ML ONE (06:05)
[2019-12-23] MEDS ORDERED: DIPHENHYDRAMINE 50 MG/ML, 1ML ONE (06:05)
[2019-12-23] MEDS ORDERED: EPINEPHRINE 1 MG/ML, 1ML ONE (07:11)
[2019-12-23] MEDS ORDERED: PHENYLEPHRINE 10 MG/ML ONE (07:11)
[2019-12-23] MEDS: DOPAMINE/D5W PMX 250 ML IV PRN ×2 (07:30→20:01)
[2019-12-23] MEDS: SODIUM CHLORIDE 0.9% 1,000 ML IV SCH (11:25)
[2019-12-23] MEDS ORDERED: CEFAZOLIN PMX 1GM/50ML 50 ML IVPB ONE (11:30)
[2019-12-23] MEDS ORDERED: ARANESP 40 MCG/ML **ESRD SQ SCH (12:30)
[2019-12-23] MEDS ORDERED: POTASSIUM PHOSPHATE 22 MEQ in SODIUM CHLORIDE 0.9% 500 ML IV ONE (13:00)
[2019-12-23] MEDS ORDERED: ONDANSETRON ODT 4 MG SL PRN (15:00)
[2019-12-23] MEDS: INSULIN LISPRO 100 UNITS/ML, PEN SQ-INSULIN SCH ×2 (16:00→21:05)
[2019-12-23] MEDS: LACTOBACILLUS CHEW TABLET PO SCH ×2 (16:00→20:53)
[2019-12-23] MEDS: CALCIUM CARBONATE 500 MG TAB.CHEW PO SCH ×3 (16:00→20:54)
[2019-12-23] MEDS: MECLIZINE 25 MG TABLET PO SCH (20:53)
[2019-12-23] MEDS: TERAZOSIN 5MG CAPSULE PO SCH (20:53)
[2019-12-23] MEDS: PANTOPRAZOLE 40MG TABLET PO SCH (20:53)
[2019-12-23] MEDS ORDERED: VITAMIN D3 PO SCH (21:00)
[2019-12-23] MEDS ORDERED: CALCIUM CARBONATE PO SCH (21:00)
[2019-12-23] MEDS ORDERED: [UNRECOGNIZED DRUG - OTHER] PO SCH (21:00)
[2019-12-23] MEDS: TEMPLATE NON-FORMULARY MED. (Cyclosporine (Restasis) 1 DROP) OP SCH (21:05)
[2019-12-23] MEDS: INSULIN GLARGINE 100 UNITS/ML, PEN SQ-INSULIN SCH (21:05)
[2019-12-24] MEDS: SODIUM CHLORIDE 0.9% 1,000 ML IV SCH ×4 (03:11→19:11)
[2019-12-24 04:30] VITALS: BP 110/55
[2019-12-24] MEDS: LEVOTHYROXINE 100 MCG TABLET PO SCH (05:43)
[2019-12-24] MEDS: DOPAMINE/D5W PMX 250 ML IV PRN (05:44)
[2019-12-24 05:52] LABS: MEAN CORPUSCULAR HEMOGLOBIN 28.5 pg (27.0-34.8); MEAN CORPUSCULAR HGB CONC 32.3 g/dL (32.4-35.8); MEAN CORPUSCULAR VOLUME 88.1 fL (80-100); MEAN PLATELET VOLUME 9.1 fL (7.4-10.4); PLATELET COUNT 246 x10^3/uL (130-400); RED BLOOD COUNT 2.76 x10^6/uL (3.82-5.3)
[2019-12-24 06:04] LABS: ALBUMIN 2.4 g/dL (3.4-5.0); ANION GAP 8 mmol/L (5-15); CALCIUM 7.6 mg/dL (8.5-10.1); CHLORIDE 99 mmol/L (98-107)
[2019-12-24 06:09] LABS: ALANINE AMINOTRANSFERASE 152 U/L (12-78); ALKALINE PHOSPHATASE 270 U/L (45-117); BILIRUBIN,TOTAL 0.5 mg/dL (0.2-1.0); CREATININE 3.43 mg/dL (0.55-1.02); TOTAL PROTEIN 7.4 g/dL (6.4-8.2)
[2019-12-24 06:53] LABS: BASOPHILS % (AUTO) 0 % (0-1); EOSINOPHILS # (AUTO) 0.04 x10^3/uL (0-0.4); EOSINOPHILS % (AUTO) 0 % (1-7); LYMPHOCYTES # (AUTO) 1.29 x10^3/uL (1-3.4); LYMPHOCYTES % (AUTO) 9 % (22-44); MD SCAN; MONOCYTES # (AUTO) 1.78 x10^3/uL (0.2-0.8); MONOCYTES % (AUTO) 13 % (2-9); NEUTROPHILS # (AUTO) 10.53 x10^3/uL (1.8-6.8); NEUTROPHILS % (AUTO) 77 % (42-75)
[2019-12-24] MEDS: NITROGLYCERIN SINGLE TAB 0.4 MG SL SCH (09:00)
[2019-12-24] MEDS: predniSONE 50MG TABLET PO SCH (09:19)
[2019-12-24] MEDS: CLOPIDOGREL 75 MG TABLET PO SCH (09:19)
[2019-12-24] MEDS: ASPIRIN 81 MG TABLET EC PO SCH (09:19)
[2019-12-24] MEDS: CALCIUM CARBONATE 500 MG TAB.CHEW PO SCH ×3 (09:19→21:04)
[2019-12-24] MEDS: CHOLECALCIFEROL 400 UNITS TABLET PO SCH (09:19)
[2019-12-24] MEDS: LACTOBACILLUS CHEW TABLET PO SCH ×3 (09:19→21:04)
[2019-12-24] MEDS: DULOXETINE 30 MG CAPSULE.DR PO SCH (09:20)
[2019-12-24] MEDS: CYANOCOBALAMIN 1,000 MCG TABLET PO SCH (09:20)
[2019-12-24] MEDS: ASCORBIC ACID 500 MG TABLET PO SCH (09:20)
[2019-12-24] MEDS: MECLIZINE 25 MG TABLET PO SCH ×2 (09:20→21:04)
[2019-12-24] MEDS: TEMPLATE NON-FORMULARY MED. (Cyclosporine (Restasis) 1 DROP) OP SCH ×2 (09:21→21:00)
[2019-12-24] MEDS: INSULIN LISPRO 100 UNITS/ML, PEN SQ-INSULIN SCH ×4 (09:26→21:05)
[2019-12-24] MEDS ORDERED: MIDAZOLAM 1 MG/ML, 5ML ONE (12:36)
[2019-12-24] MEDS ORDERED: FENTANYL PF 100 MCG/2ML ONE ×2 (12:36→15:00)
[2019-12-24] MEDS ORDERED: CEFAZOLIN PMX 1GM/50ML 50 ML ONE (12:36)
[2019-12-24] MEDS ORDERED: CEFAZOLIN 1,000 MG ONE (12:36)
[2019-12-24] MEDS ORDERED: LIDOCAINE 2%, 20ML ONE (12:36)
[2019-12-24] MEDS ORDERED: MIDAZOLAM 1 MG/ML, 2ML ONE (14:59)
[2019-12-24] MEDS ORDERED: LIDOCAINE 1%, 20ML ONE (15:00)
[2019-12-24] MEDS ORDERED: HOLD MEDICATION MC PRN (16:30)
[2019-12-24] MEDS ORDERED: HYDROcodone/APAP 5/325 TABLET PO PRN (16:30)
[2019-12-24] MEDS ORDERED: FILTER 0.22 MICRON IV PRN (19:30)
[2019-12-24] MEDS ORDERED: AMIODARONE 150 MG in DEXTROSE 5% 100 ML IV ONE (19:30)
[2019-12-24] MEDS: AMIODARONE 450 MG in DEXTROSE 5% 241 ML IV PRN (19:55)
[2019-12-24] MEDS: CEFAZOLIN PMX 1GM/50ML 50 ML IVPB SCH (21:04)
[2019-12-24] MEDS: PANTOPRAZOLE 40MG TABLET PO SCH (21:04)
[2019-12-24] MEDS: TERAZOSIN 5MG CAPSULE PO SCH (21:05)
[2019-12-24] MEDS: INSULIN GLARGINE 100 UNITS/ML, PEN SQ-INSULIN SCH (21:06)
[2019-12-24] MEDS: ACETAMINOPHEN 500 MG TABLET PO PRN (21:24)
[2019-12-25] MEDS ORDERED: SODIUM CHLORIDE 0.9% 1,000ML IVBOLUS ONE (03:00)
[2019-12-25 04:00] VITALS: BP 97/34
[2019-12-25] MEDS ORDERED: SODIUM CHLORIDE 0.9%, 500ML IVBOLUS ONE (04:30)
[2019-12-25 04:49] LABS: BASOPHILS # (AUTO) 0.01 x10^3/uL (0-0.1); BASOPHILS % (AUTO) 0 % (0-1); EOSINOPHILS # (AUTO) 0.08 x10^3/uL (0-0.4); EOSINOPHILS % (AUTO) 1 % (1-7); LYMPHOCYTES # (AUTO) 1.14 x10^3/uL (1-3.4); LYMPHOCYTES % (AUTO) 12 % (22-44); MD NO; MEAN CORPUSCULAR HEMOGLOBIN 28.6 pg (27.0-34.8); MEAN CORPUSCULAR HGB CONC 32.2 g/dL (32.4-35.8); MEAN CORPUSCULAR VOLUME 88.9 fL (80-100); MONOCYTES # (AUTO) 1.22 x10^3/uL (0.2-0.8); MONOCYTES % (AUTO) 13 % (2-9); NEUTROPHILS # (AUTO) 7.18 x10^3/uL (1.8-6.8); NEUTROPHILS % (AUTO) 75 % (42-75); PLATELET COUNT 231 x10^3/uL (130-400); RED BLOOD COUNT 2.62 x10^6/uL (3.82-5.3); RED CELL DISTRIBUTION WIDTH 17.6 % (9.6-15.2)
[2019-12-25 04:58] LABS: ALBUMIN 2.3 g/dL (3.4-5.0); ANION GAP 11 mmol/L (5-15); CALCIUM 7.2 mg/dL (8.5-10.1); CHLORIDE 99 mmol/L (98-107); CREATININE 4.29 mg/dL (0.55-1.02)
[2019-12-25] MEDS: CEFAZOLIN PMX 1GM/50ML 50 ML IVPB SCH ×2 (05:37→12:43)
[2019-12-25] MEDS: LEVOTHYROXINE 100 MCG TABLET PO SCH (05:37)
[2019-12-25] MEDS: AMIODARONE 450 MG in DEXTROSE 5% 241 ML IV PRN (05:37)
[2019-12-25] MEDS: INSULIN LISPRO 100 UNITS/ML, PEN SQ-INSULIN SCH ×4 (07:00→22:15)
[2019-12-25] MEDS: NITROGLYCERIN SINGLE TAB 0.4 MG SL SCH (07:43)
[2019-12-25] MEDS ORDERED: INSULIN LISPRO 100 UNITS/ML, PEN SQ-INSULIN ONE (08:00)
[2019-12-25] MEDS ORDERED: ALBUMIN HUMAN 25% 50 ML IV PRN (08:00)
[2019-12-25] MEDS: INSULIN GLARGINE 100 UNITS/ML, PEN SQ-INSULIN SCH ×2 (08:07→22:15)
[2019-12-25] MEDS: AMIODARONE 200 MG TABLET PO SCH ×2 (08:42→20:46)
[2019-12-25] MEDS: CLOPIDOGREL 75 MG TABLET PO SCH (08:42)
[2019-12-25] MEDS: ASPIRIN 81 MG TABLET EC PO SCH (08:42)
[2019-12-25] MEDS: ASCORBIC ACID 500 MG TABLET PO SCH (08:43)
[2019-12-25] MEDS: predniSONE 50MG TABLET PO SCH (08:43)
[2019-12-25] MEDS: CYANOCOBALAMIN 1,000 MCG TABLET PO SCH (08:43)
[2019-12-25] MEDS: LACTOBACILLUS CHEW TABLET PO SCH ×3 (08:43→22:12)
[2019-12-25] MEDS: MECLIZINE 25 MG TABLET PO SCH ×2 (08:43→22:13)
[2019-12-25] MEDS: CALCIUM CARBONATE 500 MG TAB.CHEW PO SCH ×3 (08:43→22:12)
[2019-12-25] MEDS: CHOLECALCIFEROL 400 UNITS TABLET PO SCH (08:43)
[2019-12-25] MEDS: DULOXETINE 30 MG CAPSULE.DR PO SCH (08:44)
[2019-12-25] MEDS: TEMPLATE NON-FORMULARY MED. (Cyclosporine (Restasis) 1 DROP) OP SCH ×2 (09:00→22:13)
[2019-12-25] MEDS: ARTIFICIAL TEARS 15 DROP/ML BOTTLE EACHEYE PRN ×2 (14:27→22:10)
[2019-12-25 15:25] VITALS: BP 132/73
[2019-12-25 20:20] VITALS: BP 140/71
[2019-12-25] MEDS: ACETAMINOPHEN 500 MG TABLET PO PRN (20:45)
[2019-12-25] MEDS: PANTOPRAZOLE 40MG TABLET PO SCH (22:13)
[2019-12-25] MEDS: TERAZOSIN 5MG CAPSULE PO SCH (22:13)
[2019-12-26 02:01] VITALS: BP 135/78
[2019-12-26 05:10] LABS: CALCIUM 7.3 mg/dL (8.5-10.1); CHLORIDE 98 mmol/L (98-107)
[2019-12-26 05:14] LABS: ANION GAP 10 mmol/L (5-15); CREATININE 3.09 mg/dL (0.55-1.02)
[2019-12-26] MEDS: LEVOTHYROXINE 100 MCG TABLET PO SCH (06:31)
[2019-12-26 06:58] VITALS: BP 138/69
[2019-12-26] MEDS: INSULIN LISPRO 100 UNITS/ML, PEN SQ-INSULIN SCH ×2 (07:30→11:00)
[2019-12-26] MEDS: CALCIUM CARBONATE 500 MG TAB.CHEW PO SCH (08:50)
[2019-12-26] MEDS: ASCORBIC ACID 500 MG TABLET PO SCH (08:51)
[2019-12-26] MEDS: LACTOBACILLUS CHEW TABLET PO SCH (08:51)
[2019-12-26] MEDS: DULOXETINE 30 MG CAPSULE.DR PO SCH (08:51)
[2019-12-26] MEDS: CYANOCOBALAMIN 1,000 MCG TABLET PO SCH (08:51)
[2019-12-26] MEDS: ASPIRIN 81 MG TABLET EC PO SCH (08:51)
[2019-12-26] MEDS: predniSONE 50MG TABLET PO SCH (08:51)
[2019-12-26] MEDS: CLOPIDOGREL 75 MG TABLET PO SCH (08:51)
[2019-12-26] MEDS: MECLIZINE 25 MG TABLET PO SCH (08:52)
[2019-12-26] MEDS: CHOLECALCIFEROL 400 UNITS TABLET PO SCH (08:52)
[2019-12-26] MEDS: NITROGLYCERIN SINGLE TAB 0.4 MG SL SCH (08:52)
[2019-12-26] MEDS: TEMPLATE NON-FORMULARY MED. (Cyclosporine (Restasis) 1 DROP) OP SCH (08:53)
[2019-12-26] MEDS: INSULIN GLARGINE 100 UNITS/ML, PEN SQ-INSULIN SCH (08:54)
[2019-12-26] MEDS ORDERED: AMIODARONE 200 MG TABLET PO SCH (09:00)
[2019-12-26] MEDS ORDERED: METOPROLOL SUCCINATE 50 MG TAB.ER.24H PO SCH (09:00)
[2019-12-26] MEDS ORDERED: AMIO200T42 PO (09:49)
[2019-12-26] MEDS ORDERED: ROSU10TA2 PO (09:49)
[2019-12-26] MEDS ORDERED: METO-93 PO (09:49)
[2019-12-26] MEDS ORDERED: INSU100V13 SC (09:49)
[2019-12-26] MEDS ORDERED: CALCITRIOL 0.5 MCG CAPSULE PO SCH (11:30)
[2019-12-30] MEDS ORDERED: DARBEPOETIN 60 MCG/ML SQ SCH (12:30)
== END 2019-12-26 13:30 | disposition home health service (06) | DRG 242 ==
LOC: EDBD 04:31 → MERGE 04:31 → ED 06:07 → CCU 07:49 → 5SO 12-25 14:58
PROVIDERS: ADMIT Internal Medicine Interventional Cardiology; ATTEND Family Medicine
PROC: 5A1D70Z Performance of Urinary Filtration, Intermittent, Less than 6 Hours Per Day (ICD-10-PCS; 2019-12-23)
PROC: 4A023N7 Measurement of Cardiac Sampling and Pressure, Left Heart, Percutaneous Approach (ICD-10-PCS; 2019-12-23)
PROC: B2111ZZ Fluoroscopy of Multiple Coronary Arteries using Low Osmolar Contrast (ICD-10-PCS; 2019-12-23)
PROC: B2151ZZ Fluoroscopy of Left Heart using Low Osmolar Contrast (ICD-10-PCS; 2019-12-23)
PROC: 02H633Z Insertion of Infusion Device into Right Atrium, Percutaneous Approach (ICD-10-PCS; 2019-12-23)
PROC: B548ZZA Ultrasonography of Superior Vena Cava, Guidance (ICD-10-PCS; 2019-12-23)
PROC: 02H63JZ Insertion of Pacemaker Lead into Right Atrium, Percutaneous Approach (ICD-10-PCS; principal; 2019-12-24)
PROC: 02HK3JZ Insertion of Pacemaker Lead into Right Ventricle, Percutaneous Approach (ICD-10-PCS; 2019-12-24)
PROC: 0JH606Z Insertion of Pacemaker, Dual Chamber into Chest Subcutaneous Tissue and Fascia, Open Approach (ICD-10-PCS; 2019-12-24)
PROC: 5A1D70Z Performance of Urinary Filtration, Intermittent, Less than 6 Hours Per Day (ICD-10-PCS; 2019-12-25)
DX: I21.19 ST elevation (STEMI) myocardial infarction involving other coronary artery of inferior wall (principal); N18.6 End stage renal disease; E87.1 Hypo-osmolality and hyponatremia; E87.2 Acidosis; I13.2 Hypertensive heart and chronic kidney disease with heart failure and with stage 5 chronic kidney disease, or end stage renal disease; I50.32 Chronic diastolic (congestive) heart failure; N25.81 Secondary hyperparathyroidism of renal origin; D63.1 Anemia in chronic kidney disease; D86.9 Sarcoidosis, unspecified; E03.9 Hypothyroidism, unspecified; E11.22 Type 2 diabetes mellitus with diabetic chronic kidney disease; E11.40 Type 2 diabetes mellitus with diabetic neuropathy, unspecified; E11.51 Type 2 diabetes mellitus with diabetic peripheral angiopathy without gangrene; E11.65 Type 2 diabetes mellitus with hyperglycemia; E78.5 Hyperlipidemia, unspecified; E88.09 Other disorders of plasma-protein metabolism, not elsewhere classified; I25.10 Atherosclerotic heart disease of native coronary artery without angina pectoris; I27.20 Pulmonary hypertension, unspecified; I35.1 Nonrheumatic aortic (valve) insufficiency; I45.5 Other specified heart block; I48.91 Unspecified atrial fibrillation; I49.5 Sick sinus syndrome; K80.20 Calculus of gallbladder without cholecystitis without obstruction; M79.7 Fibromyalgia; N25.0 Renal osteodystrophy; Z79.02 Long term (current) use of antithrombotics/antiplatelets; Z79.4 Long term (current) use of insulin; Z79.52 Long term (current) use of systemic steroids; Z79.82 Long term (current) use of aspirin; Z82.49 Family history of ischemic heart disease and other diseases of the circulatory system; Z83.3 Family history of diabetes mellitus; Z86.73 Personal history of transient ischemic attack (TIA), and cerebral infarction without residual deficits; Z87.891 Personal history of nicotine dependence; Z89.512 Acquired absence of left leg below knee; Z89.612 Acquired absence of left leg above knee; Z91.041 Radiographic dye allergy status; Z95.5 Presence of coronary angioplasty implant and graft; Z99.2 Dependence on renal dialysis
CPT/HCPCS: 36415; 93458; 96374; 99291; J3490; 71045; 80048; 80053; 80069; 82306; 82330; 82803; 82947; 82962; 83735; 83970; 84100; 84132; 84295; 84484; 84550; 85014; 85025; 87081; 90935; 93005; 93308; 93321; 93325; 99156; 99157; C1769; C1894; G0378; J0171; J0583; J0690; J0882; J1265; J1644; J2250; J3010; J7060; J0282; J1200; J1815; J2370; J2930; J7030; J7040; J7512; Q9967

== ENCOUNTER 2020-01-11 19:09 | Emergency (ER) | payer OTHER ==
[~2020-01-11] VITALS: Ht 167.6 cm; Wt 68.0 kg
[~2020-01-11 19:09] MED LIST changes: +ALPR0.5T7 PO; +AMIO200T42 PO; +ASPI-496 PO; +CALC500T29 PO; +LEVEMIR; +METO-93 PO; +ONDA4TAB7 PO; +PHOSPHA PO; +PROAIR; +RESTASIS
[2020-01-11] MEDS ORDERED: METOPROLOL 1 MG/ML, 5ML IVPush ONE (19:30)
[2020-01-11] MEDS ORDERED: METOPROLOL 1 MG/ML, 5ML ONE (20:00)
--- NOTE | 2020-01-11 20:08 | NUR ---
PT CAME TO ER WITH A-FIB RVR WITH PT C/O CHEST TIGHNESS AND PALPATATIONS. AFTER PT WAS GIVEN 5MG METOPROLOL PT HR DECREASED AND PT STATED " I FEEL BETTER AND DO NOT HAVE THE CHEST TIGHTNESS OR PALPATATIONS ANY MORE"
[2020-01-11 20:15] LABS: ALBUMIN 3.4 g/dL (3.4-5.0); ANION GAP 7 mmol/L (5-15); CALCIUM 8.9 mg/dL (8.5-10.1); CHLORIDE 99 mmol/L (98-107); CREATININE 3.75 mg/dL (0.55-1.02); T4 (THYROXINE) 11.5 mcg/dL (4.8-13.9)
[2020-01-11 20:19] LABS: TROPONIN I 0.035 ng/mL (0.000-0.045)
[2020-01-11 20:37] LABS: MEAN CORPUSCULAR HEMOGLOBIN 28.1 pg (27.0-34.8); MEAN CORPUSCULAR HGB CONC 31.7 g/dL (32.4-35.8); MEAN CORPUSCULAR VOLUME 88.7 fL (80-100); MEAN PLATELET VOLUME 8.6 fL (7.4-10.4); PLATELET COUNT 332 x10^3/uL (130-400); RED BLOOD COUNT 3.24 x10^6/uL (3.82-5.3); RED CELL DISTRIBUTION WIDTH 17.6 % (9.6-15.2)
[2020-01-11 20:44] LABS: MD YES
[2020-01-11 20:46] LABS: EOS#(MANUAL) 0.42 x10^3/uL (0.0-0.4); EOS% (MANUAL) 5 % (1-7); LYMPH#(MANUAL) 1.25 x10^3/uL (1-3.4); LYMPHS% (MANUAL) 15 % (22-44); MONOS#(MANUAL) 0.42 x10^3/uL (0.3-2.7); MONOS% (MANUAL) 5 % (2-9); SEG#(MANUAL) 6.23 x10^3/uL (1.8-6.8); SEGS% (MANUAL) 75 % (42-75)
[2020-01-11 20:47] LABS: <PLATELET ESTIMATE> ADEQUATE; <PLT MORPHOLOGY> NORMAL PLT MORPH; ANISOCYTOSIS 1+
[2020-01-11 21:49] VITALS: BP 160/80
== END 2020-01-11 21:51 | disposition home or self-care (01) ==
LOC: ED 19:30
DX: I48.91 Unspecified atrial fibrillation (principal); I11.9 Hypertensive heart disease without heart failure; I25.2 Old myocardial infarction; E11.9 Type 2 diabetes mellitus without complications; M79.7 Fibromyalgia; Z86.73 Personal history of transient ischemic attack (TIA), and cerebral infarction without residual deficits
CPT/HCPCS: 36415; 71045; 80048; 82040; 83735; 84436; 84443; 84484; 85025; 93005; 96374; 99285

== ENCOUNTER 2021-01-03 09:45 | Outpatient (CLI) | payer OTHER ==
[~2021-01-03 09:45] MED LIST changes: +CARI-389 PO; -CARI350T14 PO; -CYAN500T54 PO; +CYAN500T7 PO; +HYDR-3248 PO; -HYDR-36 PO; -OXYC-432 PO; +OXYC1TAB18 PO; -PANT40TA5 PO; +PANT40TA6 PO
== END 2021-01-03 23:59 | disposition home or self-care (01) ==
LOC: CVU 09:45 → RAD 23:59
PROVIDERS: ATTEND Internal Medicine Cardiovascular Disease
DX: I08.3 Combined rheumatic disorders of mitral, aortic and tricuspid valves (principal); I25.10 Atherosclerotic heart disease of native coronary artery without angina pectoris; I11.9 Hypertensive heart disease without heart failure
CPT/HCPCS: C8929; Q9957

== ENCOUNTER 2021-01-13 17:42 | Inpatient (IN) | payer OTHER ==
[~2021-01-13] VITALS: Ht 162.6 cm; Wt 66.0 kg
[2021-01-13] MEDS ORDERED: LABETALOL 5MG/ML, 20ML IVPush ONE (18:00)
[2021-01-13 18:46] LABS: ALBUMIN 3.6 g/dL (3.4-5.0); ANION GAP 7 mmol/L (5-15); CALCIUM 8.4 mg/dL (8.5-10.1); CHLORIDE 99 mmol/L (98-107)
[2021-01-13 18:49] LABS: ALANINE AMINOTRANSFERASE 17 U/L (12-78); ALKALINE PHOSPHATASE 87 U/L (45-117); BILIRUBIN,TOTAL 1.1 mg/dL (0.2-1.0); CREATININE 3.94 mg/dL (0.55-1.02); TOTAL PROTEIN 7.8 g/dL (6.4-8.2)
[2021-01-13] MEDS ORDERED: LABETALOL 5MG/ML, 20ML ONE (18:56)
[2021-01-13 19:18] LABS: BASOPHILS % (AUTO) 0 % (0-1); EOSINOPHILS % (AUTO) 0 % (1-7); LYMPHOCYTES % (AUTO) 8 % (22-44); MEAN CORPUSCULAR HEMOGLOBIN 25.8 pg (27.0-34.8); MEAN CORPUSCULAR HGB CONC 31.2 g/dL (32.4-35.8); MEAN PLATELET VOLUME 8.3 fL (7.4-10.4); MONOCYTES % (AUTO) 10 % (2-9); NEUTROPHILS % (AUTO) 82 % (42-75); PLATELET COUNT 211 x10^3/uL (130-400); RED BLOOD COUNT 3.85 x10^6/uL (3.82-5.3); RED CELL DISTRIBUTION WIDTH 18.4 % (9.6-15.2)
--- NOTE | 2021-01-13 19:29 | NUR ---
ATTEMPT FOR PIV X3 UNSUCCESSFUL, WILL FIND ULTRASOUND IV
[2021-01-13 19:32] LABS: MD NO
[2021-01-13] MEDS ORDERED: CEFTRIAXONE PMX 2GM/50ML 50 ML IVPB ONE (20:00)
--- NOTE | 2021-01-13 20:03 | NUR ---
albert martino at bedside for ultrasound iv.
[2021-01-13] MEDS ORDERED: CEFTRIAXONE PMX 2GM/50ML 50 ML ONE (20:18)
[2021-01-13] MEDS ORDERED: AZITHROMYCIN 500 MG in SODIUM CHLORIDE 0.9% 250 ML IV SCH (20:30)
[2021-01-13] MEDS: CEFTRIAXONE PMX 1GM/50ML 50 ML IV SCH (20:30)
--- NOTE | 2021-01-13 20:30 | NUR ---
ABX HUNG AFTER BLOOD CULTURE. PER MD ONLY ONE SET OF BLOOD CULTURES
--- NOTE | 2021-01-13 20:46 | NUR ---
hospitalist just left bedisde
[2021-01-13 21:00] LABS: D-DIMER 1.7 ug/mlFEU (0.00-0.52)
[2021-01-13] MEDS ORDERED: POLYETHYLENE GLYCOL 17 GM PACKET PO PRN (21:00)
[2021-01-13] MEDS ORDERED: MECLIZINE 25 MG TABLET PO PRN (21:00)
[2021-01-13] MEDS ORDERED: ALBUTEROL HFA 90 MCG/SPRAY INH PRN (21:00)
[2021-01-13] MEDS ORDERED: LEVALBUTEROL TARTRATE INH PRN (21:00)
[2021-01-13] MEDS ORDERED: GUAIFENESIN/DM 200-20MG, 10ML UDC PO PRN (21:00)
[2021-01-13] MEDS ORDERED: DIPHENHYDRAMINE 25 MG CAPSULE PO PRN (21:00)
[2021-01-13] MEDS: INSULIN GLARGINE 100 UNITS/ML, PEN SQ-INSULIN SCH (21:00)
[2021-01-13] MEDS ORDERED: BISACODYL 10 MG SUPP PR PRN (21:00)
[2021-01-13] MEDS ORDERED: ONDANSETRON 4 MG TABLET PO PRN (21:00)
--- NOTE | 2021-01-13 21:40 | NUR ---
pt resting in gurbeccaria, denies pain or any needs at this time, all monitors in place, first abx still running
[2021-01-13] MEDS: INSULIN LISPRO 100 UNITS/ML, PEN SQ-INSULIN SCH (21:54)
--- NOTE | 2021-01-13 22:33 | NUR ---
report given to albert martino
[2021-01-14 00:30] VITALS: BP 153/85
[2021-01-14] MEDS: ACETAMINOPHEN 325 MG TABLET PO PRN (01:00)
[2021-01-14] MEDS: DULOXETINE 30 MG CAPSULE.DR PO SCH ×3 (01:00→20:19)
[2021-01-14] MEDS: ASCORBIC ACID 500 MG TABLET PO SCH ×2 (01:00→08:35)
[2021-01-14] MEDS: CALCIUM CARBONATE 500 MG TABLET PO SCH ×3 (01:00→20:20)
[2021-01-14] MEDS: ZOLPIDEM 10MG TABLET PO PRN (01:01)
[2021-01-14] MEDS: PANTOPRAZOLE 40MG TABLET PO SCH ×2 (01:01→20:39)
[2021-01-14] MEDS: CALCIUM/VITAMIN D3 250-125 TABLET PO SCH ×3 (01:01→21:00)
[2021-01-14] MEDS: HEPARIN 5,000 UNITS/ML, 1ML SQ SCH ×4 (01:02→20:19)
[2021-01-14] MEDS: TEMPLATE NON-FORMULARY MED. (Rosuvastatin Calcium** (Crestor**) 10 MG) HOMEMEDPO SCH ×2 (01:15→21:00)
[2021-01-14] MEDS: TEMPLATE NON-FORMULARY MED. (Cyclosporine (Restasis) 1 DROP) HOMEOPHTH SCH ×3 (01:15→21:00)
[2021-01-14] MEDS: LEVOTHYROXINE 100 MCG TABLET PO SCH (05:38)
[2021-01-14] MEDS: METOPROLOL SUCCINATE 50 MG TAB.ER.24H PO SCH (05:39)
[2021-01-14 05:59] LABS: BASOPHILS % (AUTO) 1 % (0-1); EOSINOPHILS % (AUTO) 1 % (1-7); LYMPHOCYTES % (AUTO) 18 % (22-44); MEAN CORPUSCULAR HEMOGLOBIN 26.4 pg (27.0-34.8); MEAN CORPUSCULAR HGB CONC 31.9 g/dL (32.4-35.8); MEAN PLATELET VOLUME 8.4 fL (7.4-10.4); MONOCYTES % (AUTO) 11 % (2-9); NEUTROPHILS % (AUTO) 70 % (42-75); PLATELET COUNT 197 x10^3/uL (130-400); RED BLOOD COUNT 3.43 x10^6/uL (3.82-5.3); RED CELL DISTRIBUTION WIDTH 18.2 % (9.6-15.2)
[2021-01-14 06:00] LABS: MD NO
[2021-01-14 06:03] LABS: CHLORIDE 100 mmol/L (98-107)
[2021-01-14 06:07] LABS: ANION GAP 9 mmol/L (5-15); CALCIUM 8.2 mg/dL (8.5-10.1); CREATININE 4.35 mg/dL (0.55-1.02)
[2021-01-14] MEDS: INSULIN LISPRO 100 UNITS/ML, PEN SQ-INSULIN SCH ×4 (07:00→20:40)
[2021-01-14 08:30] VITALS: BP 154/75
[2021-01-14] MEDS: SENNA/DOCUSATE TABLET PO SCH (08:34)
[2021-01-14] MEDS: AMIODARONE 200 MG TABLET PO SCH (08:34)
[2021-01-14] MEDS: CALCITRIOL 0.5 MCG CAPSULE PO SCH (08:36)
[2021-01-14] MEDS: CLOPIDOGREL 75 MG TABLET PO SCH (08:36)
[2021-01-14] MEDS: ASPIRIN 81 MG TABLET EC PO SCH (08:36)
[2021-01-14] MEDS: CYANOCOBALAMIN 1,000 MCG TABLET PO SCH (08:38)
[2021-01-14] MEDS: INSULIN GLARGINE 100 UNITS/ML, PEN SQ-INSULIN SCH (08:39)
[2021-01-14] MEDS ORDERED: CHOLECALCIFEROL 5,000u TAB PO SCH (09:00)
[2021-01-14] MEDS ORDERED: ZINC SULFATE 220 MG CAPSULE PO SCH (09:00)
[2021-01-14 13:09] VITALS: BP 147/75
[2021-01-14] MEDS ORDERED: POTASSIUM CHLORIDE 20 MEQ PACKET PO ONE (14:30)
[2021-01-14] MEDS: DOXYCYCLINE 100 MG in DEXTROSE 5% 250 ML IV SCH (17:10)
[2021-01-14] MEDS: CEFTRIAXONE PMX 1GM/50ML 50 ML IV SCH (20:18)
[2021-01-14 20:19] VITALS: BP 131/73
[2021-01-14] MEDS ORDERED: ASCORBIC ACID 500 MG TABLET PO SCH (21:00)
[2021-01-15 00:49] VITALS: BP 111/67
[2021-01-15] MEDS: ACETAMINOPHEN 325 MG TABLET PO PRN (02:12)
[2021-01-15] MEDS: CARISOPRODOL 350 MG TABLET PO PRN (03:03)
[2021-01-15] MEDS: DOXYCYCLINE 100 MG in DEXTROSE 5% 250 ML IV SCH (05:23)
[2021-01-15 05:29] VITALS: BP 127/74
[2021-01-15] MEDS: LEVOTHYROXINE 100 MCG TABLET PO SCH (05:31)
[2021-01-15] MEDS: HEPARIN 5,000 UNITS/ML, 1ML SQ SCH ×3 (05:31→21:18)
[2021-01-15] MEDS: METOPROLOL SUCCINATE 50 MG TAB.ER.24H PO SCH (05:31)
[2021-01-15 06:20] LABS: BASOPHILS % (AUTO) 1 % (0-1); EOSINOPHILS % (AUTO) 3 % (1-7); LYMPHOCYTES % (AUTO) 20 % (22-44); MEAN CORPUSCULAR HEMOGLOBIN 26.3 pg (27.0-34.8); MEAN CORPUSCULAR HGB CONC 31.5 g/dL (32.4-35.8); MEAN PLATELET VOLUME 8.7 fL (7.4-10.4); MONOCYTES % (AUTO) 12 % (2-9); NEUTROPHILS % (AUTO) 65 % (42-75); PLATELET COUNT 177 x10^3/uL (130-400); RED BLOOD COUNT 3.31 x10^6/uL (3.82-5.3); RED CELL DISTRIBUTION WIDTH 18.7 % (9.6-15.2)
[2021-01-15 06:27] LABS: ANION GAP 6 mmol/L (5-15); CALCIUM 7.7 mg/dL (8.5-10.1); CHLORIDE 99 mmol/L (98-107); CREATININE 5.31 mg/dL (0.55-1.02)
[2021-01-15 06:31] LABS: MD NO
[2021-01-15 07:39] VITALS: BP 129/71
[2021-01-15] MEDS: CALCITRIOL 0.5 MCG CAPSULE PO SCH (08:44)
[2021-01-15] MEDS: DULOXETINE 30 MG CAPSULE.DR PO SCH ×2 (08:45→21:19)
[2021-01-15] MEDS: ASCORBIC ACID 500 MG TABLET PO SCH (08:45)
[2021-01-15] MEDS: CLOPIDOGREL 75 MG TABLET PO SCH (08:45)
[2021-01-15] MEDS: ASPIRIN 81 MG TABLET EC PO SCH (08:46)
[2021-01-15] MEDS: AMIODARONE 200 MG TABLET PO SCH (08:46)
[2021-01-15] MEDS: CALCIUM CARBONATE 500 MG TABLET PO SCH ×2 (08:46→21:19)
[2021-01-15] MEDS: CHOLECALCIFEROL 400 UNITS TABLET PO SCH (08:46)
[2021-01-15] MEDS: CYANOCOBALAMIN 1,000 MCG TABLET PO SCH (08:46)
[2021-01-15] MEDS: SENNA/DOCUSATE TABLET PO SCH (08:46)
[2021-01-15] MEDS: INSULIN LISPRO 100 UNITS/ML, PEN SQ-INSULIN SCH ×4 (08:47→21:17)
[2021-01-15] MEDS: TEMPLATE NON-FORMULARY MED. (Cyclosporine (Restasis) 1 DROP) HOMEOPHTH SCH ×2 (08:47→21:00)
[2021-01-15] MEDS: CALCIUM/VITAMIN D3 250-125 TABLET PO SCH ×2 (08:48→21:19)
[2021-01-15 12:41] VITALS: BP 130/88
[2021-01-15] MEDS: OXYcodone IR 5MG TABLET PO PRN (19:59)
[2021-01-15 20:00] VITALS: BP 112/70
[2021-01-15] MEDS: TEMPLATE NON-FORMULARY MED. (Rosuvastatin Calcium** (Crestor**) 10 MG) HOMEMEDPO SCH (21:00)
[2021-01-15] MEDS: ZOLPIDEM 10MG TABLET PO PRN (21:17)
[2021-01-15] MEDS: CEFTRIAXONE PMX 1GM/50ML 50 ML IV SCH (21:17)
[2021-01-15] MEDS: DOXYCYCLINE 100MG TABLET PO SCH (21:19)
[2021-01-15] MEDS: PANTOPRAZOLE 40MG TABLET PO SCH (21:31)
[2021-01-16] MEDS: ACETAMINOPHEN 325 MG TABLET PO PRN (01:35)
[2021-01-16 02:17] VITALS: BP 132/79
[2021-01-16 04:34] LABS: BASOPHILS % (AUTO) 1 % (0-1); EOSINOPHILS % (AUTO) 3 % (1-7); LYMPHOCYTES % (AUTO) 14 % (22-44); MEAN CORPUSCULAR HEMOGLOBIN 26.3 pg (27.0-34.8); MEAN CORPUSCULAR HGB CONC 31.7 g/dL (32.4-35.8); MEAN PLATELET VOLUME 8.6 fL (7.4-10.4); MONOCYTES % (AUTO) 13 % (2-9); NEUTROPHILS % (AUTO) 70 % (42-75); PLATELET COUNT 174 x10^3/uL (130-400); RED BLOOD COUNT 3.65 x10^6/uL (3.82-5.3)
[2021-01-16 04:36] LABS: MD NO
[2021-01-16 04:48] LABS: CHLORIDE 98 mmol/L (98-107)
[2021-01-16 04:58] LABS: ANION GAP 10 mmol/L (5-15); CALCIUM 7.9 mg/dL (8.5-10.1); CREATININE 5.99 mg/dL (0.55-1.02)
[2021-01-16 05:20] VITALS: BP 134/79
[2021-01-16] MEDS: HEPARIN 5,000 UNITS/ML, 1ML SQ SCH ×3 (05:29→20:46)
[2021-01-16] MEDS: METOPROLOL SUCCINATE 50 MG TAB.ER.24H PO SCH (05:29)
[2021-01-16] MEDS: LEVOTHYROXINE 100 MCG TABLET PO SCH (05:29)
[2021-01-16 07:42] VITALS: BP 136/78
[2021-01-16] MEDS ORDERED: FUROSEMIDE 20 MG/2 ML IV SCH (08:00)
[2021-01-16] MEDS: CALCITRIOL 0.5 MCG CAPSULE PO SCH (09:22)
[2021-01-16] MEDS: CLOPIDOGREL 75 MG TABLET PO SCH (09:22)
[2021-01-16] MEDS: DOXYCYCLINE 100MG TABLET PO SCH ×2 (09:22→20:46)
[2021-01-16] MEDS: ASPIRIN 81 MG TABLET EC PO SCH (09:22)
[2021-01-16] MEDS: CALCIUM CARBONATE 500 MG TABLET PO SCH ×2 (09:22→20:45)
[2021-01-16] MEDS: DULOXETINE 30 MG CAPSULE.DR PO SCH ×2 (09:22→20:45)
[2021-01-16] MEDS: AMIODARONE 200 MG TABLET PO SCH (09:23)
[2021-01-16] MEDS: CHOLECALCIFEROL 400 UNITS TABLET PO SCH (09:23)
[2021-01-16] MEDS: ASCORBIC ACID 500 MG TABLET PO SCH (09:23)
[2021-01-16] MEDS: SENNA/DOCUSATE TABLET PO SCH (09:26)
[2021-01-16] MEDS: CALCIUM/VITAMIN D3 250-125 TABLET PO SCH ×2 (09:26→20:47)
[2021-01-16] MEDS: CYANOCOBALAMIN 1,000 MCG TABLET PO SCH (09:27)
[2021-01-16] MEDS: INSULIN LISPRO 100 UNITS/ML, PEN SQ-INSULIN SCH ×4 (09:34→20:46)
[2021-01-16] MEDS: TEMPLATE NON-FORMULARY MED. (Cyclosporine (Restasis) 1 DROP) HOMEOPHTH SCH ×2 (09:34→20:53)
[2021-01-16 13:02] VITALS: BP 132/79
[2021-01-16] MEDS: FUROSEMIDE 40 MG/4 ML IV SCH (17:38)
[2021-01-16 19:27] VITALS: BP 112/69
[2021-01-16] MEDS: CEFTRIAXONE PMX 1GM/50ML 50 ML IV SCH (20:44)
[2021-01-16] MEDS: PANTOPRAZOLE 40MG TABLET PO SCH (20:45)
[2021-01-16] MEDS: TEMPLATE NON-FORMULARY MED. (Rosuvastatin Calcium** (Crestor**) 10 MG) HOMEMEDPO SCH (20:53)
[2021-01-16] MEDS: INSULIN GLARGINE 100 UNITS/ML, PEN SQ-INSULIN SCH (20:54)
[2021-01-16] MEDS: ZOLPIDEM 10MG TABLET PO PRN (20:57)
[2021-01-16] MEDS: CARISOPRODOL 350 MG TABLET PO PRN (20:57)
[2021-01-17 01:33] VITALS: BP 136/82
[2021-01-17] MEDS: HEPARIN 5,000 UNITS/ML, 1ML SQ SCH ×3 (04:44→20:38)
[2021-01-17 05:01] LABS: BASOPHILS % (AUTO) 1 % (0-1); EOSINOPHILS % (AUTO) 3 % (1-7); LYMPHOCYTES % (AUTO) 17 % (22-44); MEAN CORPUSCULAR HEMOGLOBIN 26.6 pg (27.0-34.8); MEAN CORPUSCULAR HGB CONC 31.7 g/dL (32.4-35.8); MEAN PLATELET VOLUME 8.9 fL (7.4-10.4); MONOCYTES % (AUTO) 14 % (2-9); NEUTROPHILS % (AUTO) 65 % (42-75); PLATELET COUNT 185 x10^3/uL (130-400); RED BLOOD COUNT 3.46 x10^6/uL (3.82-5.3); RED CELL DISTRIBUTION WIDTH 18.7 % (9.6-15.2)
[2021-01-17 05:07] LABS: MD NO
[2021-01-17 05:10] LABS: ALANINE AMINOTRANSFERASE 25 U/L (12-78); ALBUMIN 2.8 g/dL (3.4-5.0); ANION GAP 7 mmol/L (5-15); CALCIUM 7.7 mg/dL (8.5-10.1); CHLORIDE 100 mmol/L (98-107); CREATININE 3.43 mg/dL (0.55-1.02)
[2021-01-17 05:14] LABS: ALKALINE PHOSPHATASE 132 U/L (45-117); BILIRUBIN,TOTAL 0.4 mg/dL (0.2-1.0); TOTAL PROTEIN 7.2 g/dL (6.4-8.2)
[2021-01-17] MEDS: LEVOTHYROXINE 100 MCG TABLET PO SCH (05:24)
[2021-01-17] MEDS: METOPROLOL SUCCINATE 50 MG TAB.ER.24H PO SCH (05:25)
[2021-01-17 07:44] VITALS: BP 148/85
[2021-01-17] MEDS: AMIODARONE 200 MG TABLET PO SCH (08:48)
[2021-01-17] MEDS: ASPIRIN 81 MG TABLET EC PO SCH (08:49)
[2021-01-17] MEDS: CALCIUM CARBONATE 500 MG TABLET PO SCH ×2 (08:49→20:40)
[2021-01-17] MEDS: DULOXETINE 30 MG CAPSULE.DR PO SCH ×2 (08:49→20:40)
[2021-01-17] MEDS: ASCORBIC ACID 500 MG TABLET PO SCH (08:50)
[2021-01-17] MEDS: CALCITRIOL 0.5 MCG CAPSULE PO SCH (08:50)
[2021-01-17] MEDS: CALCIUM/VITAMIN D3 250-125 TABLET PO SCH ×2 (08:50→20:40)
[2021-01-17] MEDS: CLOPIDOGREL 75 MG TABLET PO SCH (08:50)
[2021-01-17] MEDS: SENNA/DOCUSATE TABLET PO SCH (08:50)
[2021-01-17] MEDS: DOXYCYCLINE 100MG TABLET PO SCH ×2 (08:50→20:39)
[2021-01-17] MEDS: CYANOCOBALAMIN 1,000 MCG TABLET PO SCH (08:50)
[2021-01-17] MEDS: CHOLECALCIFEROL 400 UNITS TABLET PO SCH (08:51)
[2021-01-17] MEDS: TEMPLATE NON-FORMULARY MED. (Cyclosporine (Restasis) 1 DROP) HOMEOPHTH SCH ×2 (08:51→20:43)
[2021-01-17] MEDS: INSULIN LISPRO 100 UNITS/ML, PEN SQ-INSULIN SCH ×4 (08:53→20:42)
[2021-01-17] MEDS: FUROSEMIDE 40 MG/4 ML IV SCH ×2 (08:53→16:09)
[2021-01-17] MEDS: CARISOPRODOL 350 MG TABLET PO PRN (10:04)
[2021-01-17 13:27] VITALS: BP 149/82
[2021-01-17] MEDS: OXYcodone IR 5MG TABLET PO PRN (16:11)
[2021-01-17 20:05] VITALS: BP 135/85
[2021-01-17] MEDS: ACETAMINOPHEN 325 MG TABLET PO PRN (20:38)
[2021-01-17] MEDS: CEFTRIAXONE PMX 1GM/50ML 50 ML IV SCH (20:39)
[2021-01-17] MEDS: PANTOPRAZOLE 40MG TABLET PO SCH (20:40)
[2021-01-17] MEDS: TEMPLATE NON-FORMULARY MED. (Rosuvastatin Calcium** (Crestor**) 10 MG) HOMEMEDPO SCH (20:42)
[2021-01-17] MEDS: INSULIN GLARGINE 100 UNITS/ML, PEN SQ-INSULIN SCH (20:42)
[2021-01-18 00:28] VITALS: BP 147/84
[2021-01-18] MEDS: CARISOPRODOL 350 MG TABLET PO PRN (03:43)
[2021-01-18] MEDS: LEVOTHYROXINE 100 MCG TABLET PO SCH (05:40)
[2021-01-18] MEDS: HEPARIN 5,000 UNITS/ML, 1ML SQ SCH ×2 (05:40→12:03)
[2021-01-18] MEDS: OXYcodone IR 5MG TABLET PO PRN (05:40)
[2021-01-18] MEDS: METOPROLOL SUCCINATE 50 MG TAB.ER.24H PO SCH (05:41)
[2021-01-18 05:49] LABS: MEAN CORPUSCULAR HGB CONC 32.6 g/dL (32.4-35.8); MEAN PLATELET VOLUME 8.7 fL (7.4-10.4)
[2021-01-18 05:51] LABS: BASOPHILS % (AUTO) 1 % (0-1); EOSINOPHILS % (AUTO) 3 % (1-7); LYMPHOCYTES % (AUTO) 17 % (22-44); MEAN CORPUSCULAR HEMOGLOBIN 26.8 pg (27.0-34.8); MONOCYTES % (AUTO) 14 % (2-9); NEUTROPHILS % (AUTO) 64 % (42-75); PLATELET COUNT 212 x10^3/uL (130-400); RED CELL DISTRIBUTION WIDTH 18.2 % (9.6-15.2)
[2021-01-18 05:54] LABS: MD NO
[2021-01-18 05:55] LABS: ANION GAP 7 mmol/L (5-15); CALCIUM 7.7 mg/dL (8.5-10.1); CHLORIDE 96 mmol/L (98-107); CREATININE 4.38 mg/dL (0.55-1.02)
[2021-01-18 07:02] VITALS: BP 151/74
[2021-01-18] MEDS: INSULIN LISPRO 100 UNITS/ML, PEN SQ-INSULIN SCH ×2 (07:23→12:03)
[2021-01-18] MEDS: SENNA/DOCUSATE TABLET PO SCH (09:00)
[2021-01-18] MEDS: TEMPLATE NON-FORMULARY MED. (Cyclosporine (Restasis) 1 DROP) HOMEOPHTH SCH (09:00)
[2021-01-18] MEDS: DULOXETINE 30 MG CAPSULE.DR PO SCH (12:00)
[2021-01-18] MEDS: CALCITRIOL 0.5 MCG CAPSULE PO SCH (12:00)
[2021-01-18] MEDS: CLOPIDOGREL 75 MG TABLET PO SCH (12:01)
[2021-01-18] MEDS: DOXYCYCLINE 100MG TABLET PO SCH (12:01)
[2021-01-18] MEDS: CHOLECALCIFEROL 400 UNITS TABLET PO SCH (12:01)
[2021-01-18] MEDS: AMIODARONE 200 MG TABLET PO SCH (12:01)
[2021-01-18] MEDS: CALCIUM CARBONATE 500 MG TABLET PO SCH (12:02)
[2021-01-18] MEDS: ASCORBIC ACID 500 MG TABLET PO SCH (12:02)
[2021-01-18] MEDS: CYANOCOBALAMIN 1,000 MCG TABLET PO SCH (12:02)
[2021-01-18] MEDS: ASPIRIN 81 MG TABLET EC PO SCH (12:02)
[2021-01-18] MEDS: CALCIUM/VITAMIN D3 250-125 TABLET PO SCH (12:02)
[2021-01-18 12:48] VITALS: BP 167/74
[2021-01-18] MEDS ORDERED: CEFD300C37 PO (13:44)
[2021-01-18] MEDS ORDERED: DOXY100T PO (13:44)
== END 2021-01-18 14:30 | disposition home health service (06) | DRG 193 ==
LOC: ED 22:46 → 4WST 01-14 00:02
PROVIDERS: ADMIT Internal Medicine; ATTEND Internal Medicine
PROC: 5A1D70Z Performance of Urinary Filtration, Intermittent, Less than 6 Hours Per Day (ICD-10-PCS; principal; 2021-01-14)
PROC: 5A1D70Z Performance of Urinary Filtration, Intermittent, Less than 6 Hours Per Day (ICD-10-PCS; 2021-01-18)
DX: J15.9 Unspecified bacterial pneumonia (principal); I50.33 Acute on chronic diastolic (congestive) heart failure; N18.6 End stage renal disease; I13.2 Hypertensive heart and chronic kidney disease with heart failure and with stage 5 chronic kidney disease, or end stage renal disease; I48.20 Chronic atrial fibrillation, unspecified; D68.69 Other thrombophilia; E03.9 Hypothyroidism, unspecified; E11.22 Type 2 diabetes mellitus with diabetic chronic kidney disease; E78.5 Hyperlipidemia, unspecified; E83.39 Other disorders of phosphorus metabolism; E87.6 Hypokalemia; F41.9 Anxiety disorder, unspecified; H54.61 Unqualified visual loss, right eye, normal vision left eye; H54.62 Unqualified visual loss, left eye, normal vision right eye; I25.10 Atherosclerotic heart disease of native coronary artery without angina pectoris; Z20.822 Contact with and (suspected) exposure to COVID-19; Z99.2 Dependence on renal dialysis; D63.1 Anemia in chronic kidney disease; E11.42 Type 2 diabetes mellitus with diabetic polyneuropathy; E11.51 Type 2 diabetes mellitus with diabetic peripheral angiopathy without gangrene; E11.649 Type 2 diabetes mellitus with hypoglycemia without coma; M79.7 Fibromyalgia; R09.02 Hypoxemia; W05.0XXA Fall from non-moving wheelchair, initial encounter; Y93.89 Activity, other specified; Y92.89 Other specified places as the place of occurrence of the external cause; Y99.8 Other external cause status; Z79.4 Long term (current) use of insulin; Z79.82 Long term (current) use of aspirin; Z82.49 Family history of ischemic heart disease and other diseases of the circulatory system; Z83.3 Family history of diabetes mellitus; Z89.612 Acquired absence of left leg above knee; Z95.0 Presence of cardiac pacemaker; Z88.8 Allergy status to other drugs, medicaments and biological substances; Z88.3 Allergy status to other anti-infective agents; Z91.041 Radiographic dye allergy status
CPT/HCPCS: 36415; 71045; 80048; 80053; 82728; 82962; 83036; 83615; 83735; 83880; 84100; 84145; 85025; 85379; 85384; 86705; 86706; 87040; 87340; 93005; 96365; 96366; 96367; 96375; G0378; J0456; J0696; J1644; J1940; J7060; Q0162; J1815; J7050; U0003

== ENCOUNTER 2021-02-02 15:00 | Emergency (ER) | payer OTHER ==
[~2021-02-02] VITALS: Ht 162.6 cm; Wt 59.9 kg
[~2021-02-02 15:00] MED LIST changes: +CEFD300C37 PO; +DOXY100T PO
[2021-02-02 15:24] LABS: BASOPHILS % (AUTO) 0 % (0-1); EOSINOPHILS % (AUTO) 4 % (1-7); LYMPHOCYTES % (AUTO) 21 % (22-44); MEAN CORPUSCULAR HEMOGLOBIN 26.5 pg (27.0-34.8); MEAN CORPUSCULAR HGB CONC 31.8 g/dL (32.4-35.8); MEAN PLATELET VOLUME 7.9 fL (7.4-10.4); MONOCYTES % (AUTO) 11 % (2-9); NEUTROPHILS % (AUTO) 64 % (42-75); PLATELET COUNT 245 x10^3/uL (130-400); RED BLOOD COUNT 3.82 x10^6/uL (3.82-5.3); RED CELL DISTRIBUTION WIDTH 19.8 % (9.6-15.2)
--- NOTE | 2021-02-02 15:26 | NUR ---
CC OF GIB STARTING LAST NIGHT. PT REPORTS "BRIGHT RED BLOOD". DENIES ANY BLACK OR TARRY STOOL. PT ON ELIQUIS AND PLAVIX. PT WHEELCHAIR BOUND. PT WITH LEFT UPPER ARM FISTULA, MWF DIALYSIS SCHEDULE.
[2021-02-02 15:36] LABS: ALANINE AMINOTRANSFERASE 20 U/L (12-78); ALBUMIN 3.1 g/dL (3.4-5.0); ANION GAP 1 mmol/L (5-15); CALCIUM 8.2 mg/dL (8.5-10.1); CHLORIDE 100 mmol/L (98-107); CREATININE 3.15 mg/dL (0.55-1.02); MD NO
[2021-02-02 15:39] LABS: ALKALINE PHOSPHATASE 91 U/L (45-117); BILIRUBIN,TOTAL 0.6 mg/dL (0.2-1.0)
[2021-02-02 17:25] VITALS: BP 177/74
== END 2021-02-02 17:51 | disposition home or self-care (01) ==
LOC: ED 17:16
DX: K64.8 Other hemorrhoids (principal); E11.22 Type 2 diabetes mellitus with diabetic chronic kidney disease; I13.2 Hypertensive heart and chronic kidney disease with heart failure and with stage 5 chronic kidney disease, or end stage renal disease; I50.9 Heart failure, unspecified; N18.6 End stage renal disease; Z99.2 Dependence on renal dialysis; I25.2 Old myocardial infarction; I48.91 Unspecified atrial fibrillation; I73.9 Peripheral vascular disease, unspecified; E78.5 Hyperlipidemia, unspecified; E03.9 Hypothyroidism, unspecified; E11.649 Type 2 diabetes mellitus with hypoglycemia without coma; Z86.73 Personal history of transient ischemic attack (TIA), and cerebral infarction without residual deficits; Z89.512 Acquired absence of left leg below knee
CPT/HCPCS: 36415; 80053; 85025; 99283

== ENCOUNTER 2021-02-14 11:45 | Outpatient (CLI) | payer OTHER ==
[~2021-02-14 11:45] MED LIST changes: -OMEP40CA42 PO; +OMEP40CA8 PO
== END 2021-02-14 23:59 | disposition home or self-care (01) ==
LOC: RAD 11:45
PROVIDERS: ATTEND Internal Medicine Cardiovascular Disease
DX: Z02.9 Encounter for administrative examinations, unspecified (principal)

== ENCOUNTER 2021-04-03 22:59 | Emergency (ER) | payer OTHER ==
[~2021-04-03] VITALS: Ht 162.6 cm; Wt 60.9 kg
[2021-04-03 23:34] LABS: BASOPHILS % (AUTO) 1 % (0-1); EOSINOPHILS % (AUTO) 2 % (1-7); LYMPHOCYTES % (AUTO) 17 % (22-44); MEAN CORPUSCULAR HEMOGLOBIN 27.8 pg (27.0-34.8); MEAN CORPUSCULAR HGB CONC 32.3 g/dL (32.4-35.8); MEAN PLATELET VOLUME 8.8 fL (7.4-10.4); MONOCYTES % (AUTO) 13 % (2-9); NEUTROPHILS % (AUTO) 66 % (42-75); PLATELET COUNT 222 x10^3/uL (130-400); RED BLOOD COUNT 3.72 x10^6/uL (3.82-5.3); RED CELL DISTRIBUTION WIDTH 18.9 % (9.6-15.2)
[2021-04-03 23:40] LABS: ALANINE AMINOTRANSFERASE 16 U/L (12-78); ALBUMIN 3.1 g/dL (3.4-5.0); ANION GAP 8 mmol/L (5-15); CALCIUM 8.5 mg/dL (8.5-10.1); CHLORIDE 93 mmol/L (98-107); CREATININE 2.69 mg/dL (0.55-1.02)
[2021-04-03 23:45] LABS: ALKALINE PHOSPHATASE 145 U/L (45-117); BILIRUBIN,TOTAL 0.5 mg/dL (0.2-1.0); TOTAL PROTEIN 8.2 g/dL (6.4-8.2); TROPONIN I < 0.015 ng/mL (0.000-0.045)
[2021-04-04 01:33] VITALS: BP 146/84
== END 2021-04-04 01:35 | disposition home or self-care (01) ==
LOC: ED 23:29
DX: R06.00 Dyspnea, unspecified (principal); E11.22 Type 2 diabetes mellitus with diabetic chronic kidney disease; I13.2 Hypertensive heart and chronic kidney disease with heart failure and with stage 5 chronic kidney disease, or end stage renal disease; N18.6 End stage renal disease; I50.9 Heart failure, unspecified; Z99.2 Dependence on renal dialysis; E78.5 Hyperlipidemia, unspecified; E03.9 Hypothyroidism, unspecified; E11.65 Type 2 diabetes mellitus with hyperglycemia; I48.91 Unspecified atrial fibrillation
CPT/HCPCS: 36415; 71045; 80053; 84484; 85025; 93005; 99285